=== PATIENT | male | born 1950 | race Caucasian/White ===

== ENCOUNTER 2017-03-28 05:57 | Inpatient (IN) ==
[2017-03-28] MEDS ORDERED: CeFAZolin Syr 2,000MG/20 ML 2,000 MG/20 ML SYRINGE IVPB ONE (06:29)
[2017-03-28] MEDS ORDERED: Lidocaine -MPF 1% 2 ML VIAL ID ONE (06:29)
[2017-03-28] MEDS ORDERED: Vancomycin 1,500 MG in D5% in Water 250 ML IVPB ONE (06:29)
[2017-03-28] MEDS ORDERED: Albuterol 2.5 MG/3 ML NEBULIZER IH ONE (06:30)
[2017-03-28] MEDS ORDERED: Albuterol 2.5 MG/3 ML NEBULIZER ONE (06:32)
[2017-03-28] MEDS ORDERED: Heparin 1,000 UNITS/500 mL 500 ML ONE (06:35)
[2017-03-28] MEDS: Ringers Solution, Lactated 1,000 ML IVC SCH ×2 (06:36→11:40)
--- NOTE | 2017-03-28 06:44 | Anesthesia Evaluation PreOp ---
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: TIA (questionable) Other Medical History: Denies Any Significant HX Anesthesia History: No Prior Anesthetic Complications, Past Anesthesia Alcohol Use: rarely Drug use: none Medications and Allergies Aspirin 81 mg PO QPM 11/11/14 [History] Atorvastatin [Lipitor] 40 mg PO QPM 11/11/14 [History] Cilostazol [Pletal] 100 mg PO BID 11/11/14 [History] Metoprolol [Lopressor] 80 mg PO BID 11/11/14 [History] Nitroglycerin 0.4 mg SL Q5MIN 11/11/14 [History] Sertraline [Zoloft] 50 mg PO QPM 11/11/14 [History] amLODIPine [Norvasc] 10 mg PO DAILY 11/11/14 [History] Clopidogrel [Plavix] 75 mg PO DAILY 06/28/15 [History] Lisinopril [Zestril] 20 mg PO 06/28/15 [History] Gabapentin [Neurontin] 300 mg PO DAILY 03/28/17 [History] 3 Allergy/AdvReac Type Severity Reaction Status Date / Time No Known Allergies Allergy Verified 11/11/14 06:49 - Meds/Allergy Pre-op Review Medications Reviewed: Yes Allergies Reviewed: Yes Beta Blockers on Current Med List: Yes Anesthesia Results - Labs Laboratory Tests 03/14/17 03/14/17 03/14/17 08:16 08:16 08:16 Hgb 16.1 Hct 48.7 Plt Count 226 PT 10.3 INR 1.0 APTT 30.3 Sodium 133 L Potassium 4.6 BUN 20 Creatinine 1.57 H - Imaging EKG: report reviewed (SINUS RHYTHM RIGHT BUNDLE BRANCH BLOCK LEFT ANTERIOR FASCICULAR BLOCK) Additional studies: stress test : Impression: Perfusion imaging was negative for ischemia or infarct. A small sized fixed defect is present involving the inferior and lateral apical parisi consistent with artifact. Pharmacologic ECG was negative for ischemia at the level of heart rate achieved. Patient had no chest pain with stress. Normal hemodynamic response. Occasional PACs throughout the study. Gated EF = 50%. Anesthesia Exam Selected Entries 03/28/17 06:28 Temperature 98.5 F Pulse Rate 86 Respiratory Rate 18 Blood Pressure 123/79 O2 Sat by Pulse Oximetry 96 Weight: 97kg NPO (# of Hours): 8 - HEENT Pupil (Motor): EOMI Mallampati: II Teeth: Edentulous Denture Type: Upper: Complete Oral Opening: Greater than 3 - PORCELAIN ENAMELER LOC: Oriented PORCELAIN ENAMELER Motor: Normal RUE, Normal LUE, Normal RLE, Normal LLE, Normal Face PORCELAIN ENAMELER Sensory: Normal: RUE, LUE, RLE, LLE, Face - Cardiac Rhythm: Regular Murmur: None - Pulmonary Breath Sounds: bilateral Clear Respiratory Effort: Symmetrical Anesthesia Assess/Plan ASA Score: 3 Modified Leticia Scale for Level of Consciousness: Cooperative, oriented, and tranquil Anesthetic Plan: General Monitoring Plan: Standard Monitors, A-Line Recovery Plan: PACU (agrees to GA and a-line)
[2017-03-28] MEDS ORDERED: *HR* FentaNYL (PF) 100 MCG/2 ML VIAL ONE (06:57)
[2017-03-28] MEDS ORDERED: *HR* Propofol 200 MG/20 ML VIAL IVP ONE (06:57)
[2017-03-28] MEDS ORDERED: *HR* Midazolam HCl 2 MG/2 ML VIAL ONE (06:57)
[2017-03-28] MEDS ORDERED: Ondansetron 4 MG/2 ML VIAL ONE ×2 (07:01→14:35)
[2017-03-28] MEDS ORDERED: *HR* Rocuronium Bromide 50 MG/5 ML VIAL ONE (07:01)
[2017-03-28] MEDS ORDERED: Dexamethasone 4 MG/ML VIAL ONE (07:01)
[2017-03-28] MEDS ORDERED: *HR* Phenylephrine 10 MG/ML VIAL ONE ×2 (07:01→12:06)
[2017-03-28] MEDS ORDERED: Lidocaine -MPF 2% 2 ML VIAL ONE (07:01)
[2017-03-28] MEDS ORDERED: *HR* Succinylcholine 200 MG/10 ML VIAL IVP ONE (07:01)
[2017-03-28] MEDS ORDERED: EPHEDrine 50 MG/ML VIAL ONE (07:12)
[2017-03-28] MEDS ORDERED: Heparin 1,000 UNITS/500 mL 1,000 ML ONE (07:13)
[2017-03-28] MEDS ORDERED: *HR* Remifentanil 2 MG VIAL IVP ONE ×2 (07:16→10:45)
--- NOTE | 2017-03-28 07:35 | History & Physical Report ---
Date of Encounter: 03/28/17 Time of Encounter: 07:28 24 Hour HP Update - Instructions Instructions: If the History and Physical is less than 30 days old and was completed prior to A.M. admission and or procedure and has NOT been updated on calendar day of procedure please complete this update prior to performing procedure. - Update Patient reports changes in Medical Condition: No Changes in examination, assessment, or condition: No Changes in Medication: No Preop tests/diagnostics Reviewed: Yes Surgery Remains Indicated: Yes Consent for Planned Operative Procedure(s) Verified: Yes - Pre-Operative Checklist Preoperative Checklist Indicated: Yes Prophylactic Antibiotic Ordered: Yes (vancomycin due to MRSA risk) Home Medications Include Beta Kassi: Yes Beta Kassi Taken Today (Day of Surgery): Yes Beta Kassi Taken Yesterday (Day Prior to Surgery): Yes Is VTE Prophylaxis Indicated?: Yes
[2017-03-28] MEDS ORDERED: Vancomycin 1,000 MG, Sodium Chloride IRRigation 1,000 ML IR ONE (07:45)
[2017-03-28] MEDS ORDERED: Nitroglycerin 25 MG/250 ML INFUS..BTL IVC ONE (07:57)
[2017-03-28] MEDS: 0.9 % Sodium Chloride 1,000 ML IVC SCH ×5 (09:00→22:41)
[2017-03-28] MEDS ORDERED: Vancomycin 1,000 MG VIAL ONE ×2 (09:49→13:12)
[2017-03-28] MEDS ORDERED: *HR* Labetalol 20 MG/4 ML SYRINGE IVP PRN ×2 (10:51→16:19)
[2017-03-28] MEDS ORDERED: *HR* HYDROmorphone (PF) 1 MG/ML SYRINGE IVP PRN (10:51)
[2017-03-28] MEDS ORDERED: Dexamethasone 4 MG/ML VIAL IVP ONE (10:51)
[2017-03-28] MEDS ORDERED: *HR* Promethazine 25 MG/ML VIAL IVP PRN (10:51)
[2017-03-28] MEDS ORDERED: *HR* Vasopressin 20 UNIT/ML VIAL ONE (11:12)
[2017-03-28] MEDS ORDERED: *HR* Heparin 5,000 UNIT/ML VIAL ONE (11:39)
[2017-03-28] MEDS ORDERED: *HR* HYDROmorphone 2 MG/ML SYRINGE ONE (13:04)
[2017-03-28] MEDS ORDERED: Acetaminophen IV 1,000 MG/100 ML INFUS..BTL ONE (13:21)
[2017-03-28] MEDS ORDERED: Neostigmine Methylsulfate 3 MG/3 ML SYRINGE ONE (13:26)
--- NOTE | 2017-03-28 14:02 | Operative Note ---
Date of procedure: 03/28/17 Pre-op diagnosis: Peripheral vascular disease with rest pain Post-op diagnosis: same Procedure: 1. Aortobifemoral artery bypass with 16 x 8 mm Hemashield graft. 2. Left common and deep femoral artery endarterectomy Complications: None Anesthesia: GETA Surgeon: Maximino Campoverde Was there an administrative assistant front desk present: Yes Freight Car Repairer: Levon Chavez Estimated blood loss (cc): 725 Specimen: Aortic plaque Condition: stable Disposition: PACU Procedure in Detail: Indications: The patient is a 66 year old male with a history of coronary artery disease, hypertenions, chronic kidney disease stage 3, mixed hyperlipidemia and tobacco abuse. He presented to clinic with peripheral vascular disease with disabling claudication. The patient has previously undergone iliac stent placement, a left femoral to popliteal artery bypass and a femoral to femoral artery bypass. He was found on CT angiogram to have bilateral iliac artery occlusions and occlusion of his femoral to femoral artery bypass. Aortobifemoral artery bypass was recommended for symptomatic relief and to reduce his risk of limb loss. Procedure: The patient was identified in the preoperative area. The risks, benefits, and alternatives of the procedure were discussed. All questions were answered. The patient was taken to the operating room and placed in supine position on the operating room table. After the induction of general endotracheal anesthesia, he was cleaned and draped in normal sterile fashion. A two surgeon approach was utilized for this procedure in order to minimize anesthetic time and the risks for complications due to the patients comorbid conditions. In addition, a two surgeon approach was used for intraoperative decision making. An oblique incision was made over the right groin scar sharply. Hemostasis was obtained with electrocautery. Through a process of blunt, sharp, and electrocautery dissection, the right femoral vessels were dissected circumferentially and surrounded with vessel loops. The right limb of his femoral to femoral artery bypass graft was also dissected. An oblique incision was then made over the left groin scar sharply. Hemostasis was obtained with electrocautery. Through a process of blunt, sharp, and electrocautery dissection, the left femoral vessels were dissected circumferentially and surrounded with vessel loops. The left limb of his femoral to femoral bypass graft and the proximal anastamosis of his left femoral to popliteal arty bypass graft also dissected circumferentially. A midline incision was made sharply. Hemaostasis was obtained via electrocautery. Through a process of blunt, sharp and electrocautery dissection , the subcutaneous tissue, fascia and peritoneum were traversed. A brief exploration of the peritoneum revealed no acute pathology. Nasogastric tube placement was confirmed. The aorta was palpated in the retroperitoneum. The retroperitoneum was opened with blunt, sharp and electrocautery dissection. The aorta was dissected along it's anterior, medial and lateral surfaces to below the renal arteries. The dissection was extended down to the aortic bifurcation. A clamp was used to tunnel through the retroperitoneum to each femoral vessel. The patient received 5000 units of intravenous heparin and additional heparin throughout the case to maintain anticoagulation. A 16 x 8mm dacron bifurcated graft was cut to appropriate length. The infrarenal aorta was clamped proximally and distally. A longitudinal incision was made into the aorta between the clamps. Significant plaque and thrombus was removed. The aorta was flushed by releasing the clamp and a large organized thrombus emerged. The aorta was clamped again and infused with heparinized saline. The graft was cut to fit the defect and sutured in place with a running 3-0 prolene. After completing the anastamosis, the graft limbs were clamped and the aorta was reopened. Thrombin and gelfoam were used to aid in hemostasis. The graft limbs were tunneled to the femoral vessels. The bilateral femoral vessels were occluded and longitudinal arteriotomies were made in the common femoral arteries. The femoral to femoral graft anastamoses were excised from the femoral arteries. On the left side, severe atherosclerotic plaque and chronic thrombus was present in the common and deep femoral artery. An endarterectomy was then performed with a freer along the left common and deep femoral artery. Retrograde deep femoral artery flow was noted after the endarterectomy was completed. The bilateral graft limbs were then cut to fit the arteriotomies and sutured in place with a running 6-0 Prolene. Prior to completing the anastamoses, the femoral vessels were flushed through the graft anastamoses and heparin was infused into the lumen. The anastamoses were completed and flow was restored in the right lower extremity. After assuring appropriate hemodynamics flow was restored to the left lower extremity. Thrombin and gelfoam were used to aid in hemostasis. Polyphasic signals were noted distal to the anastamoses. The wounds were irrigated with antibiotic-containing saline. Platelet rich and platelet poor plasma were infused into the wounds. Meticulous hemostasis was obtained throughout the wounds with electrocautery. The femoral wounds were reapproximated with layers of 2-0 and 3-0 Vicryl. Skin was reapproximated with 3-0 Monocryl. The abomen and pelvis were irrigated with antibiotic containing saline. Meticulous hemostasis was obtained throughout the retroperitoneum with electrocautery. The retroperitoneum was reapproximated with 2-0 Vicryl. The abdominal contents were returned to their normal anatomic position The nasogastric tube was checked for position. The midline fascia was reapproximated with looped PDS suture. The subcutaneous tissue was reapproximated with 2-0 Vicryl. Platelet rich and platelet poor plasma were infused into the wound. Skin was reapproximated with 3-0 Monocryl. Sterile dressings were applied. The patient was extubated and taken to recovery room in stable condition.
[2017-03-28 14:30] LABS: ABG Base Excess -10 mEq/L (-2 to 3); ABG Chloride 110 mEq/L (98-107); ABG Glucose 207 mg/dL (60-95); ABG HCO3 17 mEq/L (21-27); ABG Ionized Calcium 1.23 mmol/L (1.15-1.35); ABG Oxygen Saturation 88 % (95-98); ABG PCO2 45 mmHg (35-45); ABG PO2 66 mmHg (85-104); ABG TCO2 19 mEq/L (20-26)
[2017-03-28 14:50] LABS: ABG Base Excess -7 mEq/L (-2 to 3); ABG Chloride 110 mEq/L (98-107); ABG Glucose 199 mg/dL (60-95); ABG HCO3 20 mEq/L (21-27); ABG Ionized Calcium 1.53 mmol/L (1.15-1.35); ABG Oxygen Saturation 88 % (95-98); ABG PCO2 46 mmHg (35-45); ABG PH 7.25 pH Units (7.32-7.45); ABG PO2 63 mmHg (85-104); ABG TCO2 22 mEq/L (20-26)
[2017-03-28 15:15] LABS: ABG Base Excess -4 mEq/L (-2 to 3); ABG Chloride 108 mEq/L (98-107); ABG Glucose 215 mg/dL (60-95); ABG HCO3 22 mEq/L (21-27); ABG Ionized Calcium 1.39 mmol/L (1.15-1.35); ABG Oxygen Saturation 88 % (95-98); ABG PCO2 44 mmHg (35-45); ABG PH 7.31 pH Units (7.32-7.45); ABG PO2 60 mmHg (85-104); ABG TCO2 23 mEq/L (20-26)
--- NOTE | 2017-03-28 15:27 | Operative Note ---
Date of procedure: 03/28/17 Pre-op diagnosis: Claudication Post-op diagnosis: same Procedure: Aortobifemoral bypass graft with 16 x 8 mm hemasheild graft Left common femoral artery endarterectomy Complications: None Anesthesia: GETA Surgeon: Maximino Campoverde Co-Surgeon: Levon Chavez Was there an assistant professor of communication present: No Estimated blood loss (cc): 725 Specimen: Aortic plaque Condition: stable Disposition: PACU Procedure in Detail: History Mr. Guan is a 66-year-old white male with known vascular disease. He has significant bilateral iliac artery disease which has been progressive. He is status post a previous right to left femoral-femoral bypass graft which has gone on to thrombose. He does have a left femoral-popliteal bypass graft with vein which has remained open. He has significant claudication. Because of his diffuse inflow disease it was recommended to the patient he undergo a direct aortic reconstruction and he comes for that operation today. Procedure After informed consent was obtained the patient was taken to the operating room. General endotracheal anesthesia was established with arterial line pressure monitoring. A 2 surgeon approach was utilized for this procedure due to the patient's comorbidities. This also would facilitate intraoperative complex decision-making as well as minimize operative time and decrease blood loss. The femoral arteries were dissected first simultaneously. The old femoral- femoral bypass graft was encountered and was divided. Significant scar tissue was encountered bilaterally. The vein graft was identified in the left groin and was selectively dissected and preserved. A longitudinal midline incision was then made on the abdomen in order to explore the abdomen and expose the aorta. Dissection was carried down to the retroperitoneum. The infrarenal aorta was identified. The crossing left renal vein was identified at the superior aspect of the exposure. Controls obtained. Tunnels were then made through the retroperitoneum. 5000 units of heparin were Mr. intravenously. After 3 minute delay the aorta was clamped and the infrarenal location. A longitudinal incision was then made in the aorta was endarterectomized. The plaque was submitted for specimen. An end of graft to side of aorta anastomosis was then configured using a 16 x 8 mm Hemashield graft. 3-0 Prolene was used for the proximal anastomosis. The graft limbs were then tunneled and checked for their appropriate position. Arteriotomies were then made over the femoral arteries in end of graft to side of femoral artery anastomosis was created. However, on the left side significant inflammatory and scar tissue was encountered. There is chronic thrombus as well as atherosclerotic debris. Therefore a formal endarterectomy was necessary in order to open this area to accommodate a bypass graft. Chronic thrombus was found at the orifice of the profunda femoris artery. The arteriotomy was extended out onto the proximal aspect of the vein graft. A long anastomosis was then made on the left side in order to accommodate these anatomic changes. After appropriate backbleeding and flushing the graft was opened. First to the right leg and then to the left leg. The patient tolerated these procedures well. The wounds were then irrigated and hemostasis achieved. Wounds were then closed in layers. The groin incisions were closed with absorbable suture. The abdomen was closed with a with 2 looped PDS sutures. There were no intraoperative complications. The patient tolerated the procedure well. The patient was taken from the operating room to the recovery room in stable condition.
--- NOTE | 2017-03-28 15:28 | Anesthesia Evaluation Post Op ---
Date of Encounter: 03/28/17 Time of Encounter: 15:21 - Vital Signs Vital Signs: Selected Entries 03/28/17 15:02 Temperature 97.4 F L Pulse Rate 98 Respiratory Rate 15 Blood Pressure 111/63 O2 Sat by Pulse Oximetry 92 Oxygen Flow Rate (LPM) 4 - Lungs Lungs: Clear Ascult./Percussion - Airway Airway: Non-obstructed - Cardiovascular Regular Rate - Mental Status Mental Status: Alert & Oriented, Answers Appropriately - Pain Pain Scale: 0 Pain Scale used: Numeric (1 - 10) - Nausea Vomiting Nausea Vomiting: Not Present - Hydration Hydration: Ice chips, Rosa catheter Notes: 03/28/17 15:23 patient had hypotension issues upon entry to PACU. ABGs checked and patient was acidotic and slightly hypocalcemic. Treated with 2 amps bicarbonate and 1 gram CaCl2. Pressures responded well to treatment. - Discharge PostOp Status: Transfer Patient to floor
[2017-03-28] MEDS ORDERED: Naloxone 0.4 MG/ML INJ IVP PRN ×2 (16:19)
[2017-03-28 16:45] LABS: INR 1.1; Prothrombin Time 12.2 Seconds (9.4-12.1)
[2017-03-28 16:48] LABS: Activated Partial Thrombo Time 25.9 Seconds (26.0-36.0)
[2017-03-28 16:52] LABS: Albumin 2.4 g/dL (3.5-5.7); Calcium 8.1 mg/dL (8.6-10.3); Magnesium 1.5 mg/dL (1.6-2.6); Phosphorous 3.8 mg/dL (2.7-4.5); Potassium 4.8 mEq/L (3.5-5.1)
[2017-03-28 16:53] LABS: Basophils % 0.2 %; Eosinophils % 0.1 %; Hematocrit 36.4 % (37.5-50.1); Hemoglobin 12.1 g/dL (12.9-16.9); Immature Granulocytes % 0.6 % (0-4); Lymphocytes # 0.8 K/mcL (0.6-4.6); Lymphocytes % 4.2 %; Mean Corpuscular HGB Conc 33.2 g/dL (31.6-35.5); Mean Corpuscular Hemoglobin 31.5 pg (28.0-33.3); Mean Corpuscular Volume 94.8 fL (83.0-100.0); Mean Platelet Volume 9.8 fL (9.4-12.4); Monocytes % 5.6 %; Nucleated Red Blood Cells 0.1 /100 WBC (0); Platelet Count 153 K/mcL (140-400); Red Blood Count 3.84 M/mcL (4.19-5.50); Red Cell Distribution Width 13.4 % (11.5-14.5); Segmented Neutrophils % 89.3 %
[2017-03-28] MEDS ORDERED: Calcium Chloride 1,000 MG in 0.9 % Sodium Chloride 100 ML IVPB ONE (17:08)
--- NOTE | 2017-03-28 17:51 | Event Note ---
Date of Encounter: 03/28/17 Time of Encounter: 17:30 The patient was seen and examined. He is alert and comfortable. His vital signs are stable. His abdomen is soft and he has pedal signals. He initially made no urine after arriving on the floor. He received a 500ml NS bolus and has now made 15ml urine. He will remain on intravenous hydration with NS at 125ml/hr. His calcium and magnesium will be repleted intravenously. He will have repeat labs in the morning. Continue with NPO status.
[2017-03-28] MEDS: *HR* Metoprolol 5 MG/5 ML VIAL IVP SCH ×2 (18:00→18:05)
[2017-03-28] MEDS: Nitroglycerin 0.4 MG TAB.SUBL SL SCH (18:00)
[2017-03-28] MEDS: CeFAZolin Premix DUPLEX 2,000 MG/50 ML BAG IVPB SCH (18:01)
[2017-03-28] MEDS: *HR* Morphine 30 MG/ 30 ML PCA IVC PRN (18:50)
[2017-03-29] MEDS: CeFAZolin Premix DUPLEX 2,000 MG/50 ML BAG IVPB SCH (00:14)
[2017-03-29] MEDS: *HR* Metoprolol 5 MG/5 ML VIAL IVP SCH ×5 (00:15→23:26)
[2017-03-29 03:52] LABS: Prothrombin Time 10.8 Seconds (9.4-12.1)
[2017-03-29 04:12] LABS: Albumin 2.7 g/dL (3.5-5.7); Calcium 8.7 mg/dL (8.6-10.3); Magnesium 2.1 mg/dL (1.6-2.6); Phosphorous 3.5 mg/dL (2.7-4.5); Potassium 5.2 mEq/L (3.5-5.1)
[2017-03-29] MEDS: *HR* Heparin 5,000 UNIT/ML VIAL SQ SCH ×2 (05:36→17:44)
[2017-03-29] MEDS: 0.9 % Sodium Chloride 1,000 ML IVC SCH ×3 (05:37→23:26)
[2017-03-29] MEDS ORDERED: *HR* Heparin 5,000 UNIT/ML VIAL SQ SCH (06:00)
--- NOTE | 2017-03-29 07:45 | Vascular/[facility] Progress Note ---
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 His feet are warm and pedal signals are present. His compartments are soft. He incisions are dry. He has no hematoma. He will continue will remain NPO today. He will have repeat labs tomorrow. 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 PT today. Qualifiers: Peripheral atherosclerosis artery type: [place] artery Qualified Code(s): I70.223 - Atherosclerosis of [place] arteries of extremities with rest pain, bilateral legs (2) Essential hypertension Current Visit: Yes Status: Chronic (3) Mixed hyperlipidemia Current Visit: Yes Status: Chronic (4) CAD in [place] artery Current Visit: Yes Status: Chronic (5) Acute blood loss anemia Current Visit: Yes Status: Acute The patient has acute expected postoperative blood loss anemia. He is hemodynamically stable without evidence of ongoing blood loss. (6) CKD (chronic kidney disease), stage III Current Visit: Yes Status: Chronic The patient has chronic kidney disease stage III. He continues to make urine. Will continue with intravenous fluids. Recheck labs in am. Leave lang catheter in place to monitor urine output. (7) Tobacco abuse Current Visit: Yes Status: Acute Will start nicotine patch. Smoking cessation discussed. (8) Moderate protein malnutrition Current Visit: Yes Status: Chronic - Subjective Interval history: The patient is comfortable today. He reports adequate pain control. He denies nausea. He denies chest pain or shortness of breath. Vital Signs, Last 4 Hours Temp Pulse Resp BP Pulse Ox 03/29/17 07:19 98.0 F 96 18 129/71 93 03/29/17 05:08 98.1 F 101 17 108/59 94 03/29/17 03:43 105 - Physical Examination General: Present: Conversant, No Apparent Distress HEENT: Present: Pupils equal Neck: Absent: JVD Cardiac: Present: Reg Rate and Rhythm Lungs: Present: Normal Breath Sounds, No Wheeze, Rales, Rhonchi Neuro: Present: Alert and responsive, No focal deficits noted, Motor nerves grossly intact, Sensory nerves grossly intact Vascular: Present: Normal capillary refill, Surgical incisions (no hematoma), Other (pedal signals present bilaterally). Absent: Cyanosis, Edema Abdomen: Present: Soft, Other (mild distension, no bowel sounds, bandages dry) - VTE Documentation of Mechanical Device: Intermittent pneumatic compression device Results 03/29/17 08:35 03/29/17 03:23 Lab Results, Last 24 hours 03/28/17 03/28/17 03/28/17 16:30 16:30 16:30 WBC 17.9 H Hgb 12.1 L Hct 36.4 L Plt Count 153 INR 1.1 APTT 25.9 L Sodium 136 Potassium 4.8 Chloride 113 H Carbon Dioxide 21 L BUN 24 H Creatinine 1.77 H Glucose 207 H Calcium 8.1 L Magnesium 1.5 L 03/29/17 03/29/17 03:23 03:23 WBC Hgb Hct Plt Count INR 1.0 APTT Sodium 137 Potassium 5.2 H Chloride 114 H Carbon Dioxide 19 L BUN 27 H Creatinine 1.80 H Glucose 169 H Calcium 8.7 Magnesium 2.1 Consult Discharge Plan - Plan Referrals: Kal Lugo MD [Primary Care Provider] - 04/01/17 9:45 am Maximino Campoverde MD [Partnered Physician] - 05/07/17 1:00 pm
[2017-03-29 09:11] LABS: Basophils % 0.1 %; Hematocrit 35.6 % (37.5-50.1); Hemoglobin 11.8 g/dL (12.9-16.9); Immature Granulocytes % 0.3 % (0-4); Lymphocytes # 1.3 K/mcL (0.6-4.6); Lymphocytes % 11.6 %; Mean Corpuscular HGB Conc 33.1 g/dL (31.6-35.5); Mean Corpuscular Hemoglobin 31.5 pg (28.0-33.3); Mean Corpuscular Volume 94.9 fL (83.0-100.0); Mean Platelet Volume 9.9 fL (9.4-12.4); Monocytes # 0.9 K/mcL (0.0-1.3); Monocytes % 8.4 %; Neutrophils # 8.8 K/mcL (1.6-8.9); Platelet Count 119 K/mcL (140-400); Red Blood Count 3.75 M/mcL (4.19-5.50); Red Cell Distribution Width 13.7 % (11.5-14.5); Segmented Neutrophils % 79.6 %
[2017-03-29] MEDS: Ondansetron 4 MG/2 ML VIAL IVP PRN (09:27)
--- NOTE | 2017-03-29 10:21 | Discharge Summary ---
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 Priority: Primary Status: Chronic Qualifiers: Peripheral atherosclerosis artery type: [place] artery Qualified Code(s): I70.223 - Atherosclerosis of [place] arteries of extremities with rest pain, bilateral legs (4) Acute blood loss anemia Priority: Secondary Status: Acute (5) CHF (congestive heart failure) Priority: Secondary Status: Chronic Qualifiers: Congestive heart failure type: systolic Congestive heart failure chronicity : chronic Qualified Code(s): I50.22 - Chronic systolic (congestive) heart failure - Discharge Medications Prescriptions: OxyCODONE/APAP 5/325 [Percocet 5/325 MG] 1 each PO Q6HR PRN #25 tablet PRN Reason: postoperative pain Adhesive Tape [Paper Tape] 1 each TP AD #1 tape Amoxicillin/Clavulanate [Augmentin] 875 mg PO BID #10 tablet Fluconazole [Diflucan] 200 mg PO DAILY #5 tablet Polyquaternium-6/Gauze Bandage [Bioguard Gauze 4"X4" Sponge] 1 each TP AD #60 bandage Home Medications: Aspirin 81 mg PO QPM 11/11/14 [History] Atorvastatin [Lipitor] 80 mg PO QPM 11/11/14 [History] Cilostazol [Pletal] 100 mg PO BID 11/11/14 [History] Metoprolol [Lopressor] 80 mg PO BID 11/11/14 [History] Nitroglycerin 0.4 mg SL Q5MIN 11/11/14 [History] Sertraline [Zoloft] 50 mg PO QPM 11/11/14 [History] amLODIPine [Norvasc] 10 mg PO DAILY 11/11/14 [History] Clopidogrel [Plavix] 75 mg PO DAILY 06/28/15 [History] Lisinopril [Zestril] 20 mg PO DAILY 06/28/15 [History] Gabapentin [Neurontin] 300 mg PO DAILY 03/28/17 [History] OxyCODONE/APAP 5/325 [Percocet 5/325 MG] 1 each PO Q6HR PRN #25 tablet 03/29/17 [Rx] Adhesive Tape [Paper Tape] 1 each TP AD #1 tape 04/09/17 [Rx] Polyquaternium-6/Gauze Bandage [Bioguard Gauze 4"X4" Sponge] 1 each TP AD #60 bandage 04/09/17 [Rx] Amoxicillin/Clavulanate [Augmentin] 875 mg PO BID #10 tablet 04/13/17 [Rx] Fluconazole [Diflucan] 200 mg PO DAILY #5 tablet 04/13/17 [Rx] Allergies/Adverse Reactions: 3 Allergy/AdvReac Type Severity Reaction Status Date / Time No Known Allergies Allergy Verified 03/28/17 06:48 Date of admission: 03/28/17 17:12 Primary care physician: Kal Lugo MD Consults: 03/28/17 16:19 Consult to Physical Therapy [CONS] Routine Comment: Evaluate, develop and implement POC Reason for Consult: Postoperative aortobifemoral bypass. Anticipated date of discharge: 04/01/17 - Patient Status Disposition: Home, Self-Care Condition: Good Functional capacity at discharge: independent ambulation Overall status at discharge: patient is progressing back to baseline - Discharge Instructions Instructions: Oxycodone/Acetaminophen (By mouth), Aortofemoral Bypass (DC) Follow Up With: Kal Lugo MD [Primary Care Provider] - 04/26/17 1:15 pm Sy Bryan MD [Partnered Physician] - 05/06/17 3:35 pm Maximino Hutchins MD [Partnered Physician] - 05/07/17 1:00 pm Additional Instructions: Cholecystostomy Tube Care: 1. do not let the drain dangle from your body. Suspend on a lanyard or secured to clothing with the safety pin. 2. Remove dressing and showers/wash with antibacterial soap daily. Pat dry. 3. Place a drain sponge or split 4 x 4 gauze around the drain site. Tape to secure. 4. Do not flush the drain towards the body. If the drain needs flushed, turn the stopcock to off to the patient and you may flushed the tube with 10 mL of normal saline. 5. Record the output from the drain at least once daily. BRING this drainage recording to your follow-up appointment. NO LIFTING GREATER THAN 10 POUNDS UNTIL 04/29/17. NO LIFTING GREATER THAN 20 POUNDS UNTIL 05/27/17. CALL DR. HUTCHINS AT [phone] WITH QUESTIONS OR CONCERNS. - Diet and Activity Activity: increase activity as tolerated Diet: advance to your usual diet - Hospital Course Hospital course: Mr. Guan is a 66 year old male With known significant vascular occlusive disease. He is status post previous femoral-femoral bypass graft and left femoral popliteal bypass graft. He presents with further symptoms to the outpatient clinic. CT Angiograham demonstrated significant iliac occlusive disease and was recommended that the patient undergo a formal inflow procedure due to his stable physical condition. The patient was then taken to the operating room on March 28. He underwent an aortobifemoral bypass graft. He was able to be extubated at the conclusion of the operation. He was then transported to the recovery room and from there to [address] [place] [address]. Postoperatively he had experienced hypoxemia. He required significant supplemental oxygen therapy and temporarily a BiPAP mask on March 30. He responded appropriately to diuresis. He was able to be placed back on his usual medications on the afternoon of March 31. He was then able to ambulate and be weaned off of his oxygen. He was felt fit for discharge on the afternoon of April 01. Instructions were given to the patient in regards to his activities and medications prior to discharge. He will follow up with his primary care physician and with Dr. Hutchins. - Time Spent with Patient Total time spent providing and/or coordinating discharge services: Exam Vital Signs, Last 4 Hours Temp Pulse Resp BP Pulse Ox 04/01/17 16:33 97.7 F 104 18 118/72 90 04/01/17 16:11 18 100 General: Present: Conversant, No Apparent Distress HEENT: Present: Atraumatic Neck: Absent: JVD Cardiac: Present: Reg Rate and Rhythm Lungs: Present: Decreased breath sounds Neuro: Present: Alert and responsive, No focal deficits noted Abdomen: Present: Soft, Non-tender Vascular: Present: Color/Temperature (His feet are warm and pink.), Surgical incisions (Surgical incisions are clean and dry and healing appropriately.), Other (The patient has Doppler signals at his feet and ankle bilaterally.) Skin: Present: No rashes noted on visualized skin <Maximino Hutchins - Last Filed: 04/16/17 07:09> Date of Encounter: 04/13/17 Time of Encounter: 11:15 - Discharge Diagnosis (1) Atherosclerosis of both lower extremities with rest pain Priority: Primary Status: Chronic Comments: The patient is postoperative day #16 after his aortobifemoral artery bypass. His wounds are healing. He is tolerating a diet and he has polyphasic signals in his feet. He will be discharged today. Qualifiers: Peripheral atherosclerosis artery type: [place] artery Qualified Code(s): I70.223 - Atherosclerosis of [place] arteries of extremities with rest pain, bilateral legs (2) Essential hypertension Priority: Secondary Status: Chronic (3) Mixed hyperlipidemia Priority: Secondary Status: Chronic (4) CAD in [place] artery Priority: Secondary Status: Chronic (5) Acute blood loss anemia Priority: Secondary Status: Acute (6) CKD (chronic kidney disease), stage III Priority: Secondary Status: Chronic (7) Tobacco abuse Priority: Secondary Status: Chronic (8) Moderate protein malnutrition Priority: Secondary Status: Chronic (9) Acute cholecystitis Priority: Secondary Status: Acute Comments: The patient developed acute choecystitis. He required a cholecystostomy tube. He was on intravenous antibiotics and will continue his oral antibiotics. He will follow-up with Dr. Bryan for further evaluation and interval cholecystectomy. Date of admission: 03/28/17 17:12 Primary care physician: Kal Lugo MD Consults: 03/28/17 16:19 Consult to Physical Therapy [CONS] Routine Comment: Evaluate, develop and implement POC Reason for Consult: Postoperative aortobifemoral bypass. Procedure(s) Performed: Aortobifemoral artery bypass graft Discharging clinician: Maximino Hutchins - Patient Status Functional capacity at discharge: independent ambulation Overall status at discharge: patient is progressing back to baseline - Diet and Activity Activity: increase activity as tolerated Diet: advance to your usual diet - Hospital Course Hospital course: Mr. Guan is a 66 year old male who was admitted on 03/28/17. He underwent an aortobifemoral artery bypass. He was scheduled for discharge on 04/01/17. At that time, he was was thought to have atrial fibrillation. His discharge was canceled. Cardiology was consulted and atrial fibrillation was ruled out. The patient had no evidence of an acute coronary event. The patient subsequently became febrile. The Hosptialist service was consulted. Pneumonia, sepsis and a urinary tract infection were ruled out. The patient was found to have acute cholecystitis. General surgery was consulted. The patient was treated with antibiotics and antifungals. The patient also had a cholecystostomy tube placed. He defervesced and his white blood cell count decreased. He was transitioned to oral antibiotics. He tolerated a diet well. He remained afebrile and was discharged on 04/13/17. Time spent discussing smoking cessation with patient: 3 to 10 minutes - Time Spent with Patient Total time spent providing and/or coordinating discharge services: Exam Vital Signs, Last 4 Hours Temp Pulse Resp BP Pulse Ox 03/29/17 07:19 98.0 F 96 18 129/71 93 General: Present: Conversant, No Apparent Distress HEENT: Present: Atraumatic Cardiac: Present: Reg Rate and Rhythm Lungs: Present: Normal Breath Sounds Neuro: Present: Alert and responsive, No focal deficits noted Abdomen: Present: Soft, Non-tender Vascular: Present: Surgical incisions (incision is healing well.) Skin: Present: No rashes noted on visualized skin - VTE Documentation of Mechanical Device: Intermittent pneumatic compression device
[2017-03-29] MEDS: *HR* Morphine 30 MG/ 30 ML PCA IVC PRN ×2 (12:39→23:48)
[2017-03-29] MEDS: Nicotine 21 MG PATCH.TD24 TD SCH (12:41)
[2017-03-29] MEDS: Nitroglycerin 0.4 MG TAB.SUBL SL SCH (17:38)
[2017-03-29] MEDS: Aspirin 81 MG TAB.CHEW PO SCH (17:44)
[2017-03-30] MEDS ORDERED: Albuterol 2.5 MG/3 ML NEBULIZER IH ONE (03:05)
[2017-03-30 03:51] LABS: ABG Base Excess -5 mEq/L (-2 to 3); ABG HCO3 21 mEq/L (21-27); ABG Oxygen Saturation 90 % (95-98); ABG PCO2 38 mmHg (35-45); ABG PH 7.34 pH Units (7.32-7.45); ABG PO2 63 mmHg (85-104); ABG TCO2 22 mEq/L (20-26)
[2017-03-30 03:51] LABS: Basophils % 0.1 %; Hematocrit 33.9 % (37.5-50.1); Hemoglobin 10.9 g/dL (12.9-16.9); Immature Granulocytes % 0.4 % (0-4); Lymphocytes # 1.2 K/mcL (0.6-4.6); Lymphocytes % 8.6 %; Mean Corpuscular HGB Conc 32.2 g/dL (31.6-35.5); Mean Corpuscular Hemoglobin 31.2 pg (28.0-33.3); Mean Corpuscular Volume 97.1 fL (83.0-100.0); Mean Platelet Volume 10.1 fL (9.4-12.4); Monocytes % 7.6 %; Neutrophils # 11.2 K/mcL (1.6-8.9); Platelet Count 113 K/mcL (140-400); Red Blood Count 3.49 M/mcL (4.19-5.50); Red Cell Distribution Width 14.1 % (11.5-14.5); Segmented Neutrophils % 83.3 %
[2017-03-30 03:53] LABS: Prothrombin Time 10.6 Seconds (9.4-12.1)
[2017-03-30 04:11] LABS: Albumin 2.9 g/dL (3.5-5.7); Calcium 8.9 mg/dL (8.6-10.3); Magnesium 2.2 mg/dL (1.6-2.6); Phosphorous 2.9 mg/dL (2.7-4.5)
[2017-03-30] MEDS: *HR* Metoprolol 5 MG/5 ML VIAL IVP SCH ×3 (06:03→18:17)
[2017-03-30] MEDS: *HR* Heparin 5,000 UNIT/ML VIAL SQ SCH ×2 (06:03→18:20)
[2017-03-30] MEDS: 0.9 % Sodium Chloride 1,000 ML IVC SCH (08:17)
[2017-03-30] MEDS: Nicotine 21 MG PATCH.TD24 TD SCH (08:18)
[2017-03-30] MEDS ORDERED: Furosemide 40 MG/4 ML VIAL IVP ONE (09:09)
--- NOTE | 2017-03-30 09:16 | Vascular/[facility] Progress Note ---
Date of Encounter: 03/30/17 Time of Encounter: 09:14 - Assessment and plan (1) CKD (chronic kidney disease), stage III Current Visit: Yes Status: Chronic The patient's serum creatinine is relatively stable. However because of his elevated I will defer using nonsteroidal anti-inflammatory medications for pain control and will need to continue morphine for at least another 24 hours. This was given however on an intermittent basis rather than through a [employer] device. (2) Tobacco abuse Current Visit: Yes Status: Chronic The patient's history of tobacco abuse contributes to his postoperative hypoxemia. I believe however has significant interstitial edema due to fluid and so therefore we'll eliminate all intravenous fluids and provide IV Lasix at this time. (3) Atherosclerosis of both lower extremities with rest pain Current Visit: Yes Status: Chronic Patient's aortobifemoral bypass graft appears to be patent. Perfusion is better on the left side versus the right. The patient does have a left femoral- popliteal bypass graft in position. There is no bypass graft of the lower extremity on the right side. Qualifiers: Peripheral atherosclerosis artery type: [place] artery Qualified Code(s): I70.223 - Atherosclerosis of [place] arteries of extremities with rest pain, bilateral legs - Subjective Interval history: Mr. Skelton is a 66-year-old white male who is status post aortobifemoral bypass graft on . Early this morning at approximately 2:30 was notified by the nursing staff that the patient had significant hypoxemia. He required to 15 L by nonrebreather. His O2 saturation is remained in the high 80s low 90% range. Patient does not complain of shortness of breath. He has no fevers. He has abdominal pain related to his incision made worse with coughing but otherwise is comfortable. The patient does not use oxygen at home. At this point the patient has had no return of bowel activity. Vital Signs, Last 4 Hours Temp Pulse Resp BP Pulse Ox 03/30/17 07:50 99.5 F 114 22 136/72 89 - Physical Examination General: Present: Conversant, No Apparent Distress HEENT: Present: Atraumatic Neck: Absent: JVD Cardiac: Present: Other (Sinus tachycardia in the 110-120 range. This is been persistent over more than 24 hours.) Lungs: Present: Other (Patient has coarse breath sounds bilaterally with a wet characteristic. There are no wheezes.) Neuro: Present: Alert and responsive, No focal deficits noted, Motor nerves grossly intact, Sensory nerves grossly intact Vascular: Present: Color/Temperature (The left foot is warm and pink. It has strong biphasic to triphasic Doppler signals. The right foot is cool and pale. The patient does have a biphasic posterior tibial signal.) Abdomen: Present: Soft, Other (Patient has hypoactive bowel sounds. Surgical dressings remain intact.) - VTE Documentation of Mechanical Device: Intermittent pneumatic compression device Results 03/30/17 03:03 03/30/17 03:03 Lab Results, Last 24 hours 03/30/17 03/30/17 03/30/17 03:03 03:03 03:03 WBC 13.5 H Hgb 10.9 L Hct 33.9 L Plt Count 113 L INR 1.0 Sodium 139 Potassium 5.0 Chloride 114 H Carbon Dioxide 23 BUN 34 H Creatinine 1.81 H Glucose 111 H Calcium 8.9 Magnesium 2.2 - Imaging / Other Tests Chest Xray: report reviewed, image reviewed Consult Discharge Plan - Plan Referrals: Kal Lugo MD [Primary Care Provider] - 04/01/17 9:45 am Maximino Campoverde MD [Partnered Physician] - 05/07/17 1:00 pm Prescriptions: OxyCODONE/APAP 5/325 [Percocet 5/325 MG] 1 each PO Q6HR PRN #25 tablet PRN Reason: postoperative pain
[2017-03-30] MEDS: Albuterol 2.5 MG/3 ML NEBULIZER IH SCH ×3 (10:06→21:53)
[2017-03-30] MEDS: *HR* Morphine 2 MG/ML SYRINGE IVP PRN ×3 (10:30→21:53)
[2017-03-30] MEDS: Metoclopramide 10 MG/2 ML VIAL IVP SCH ×2 (11:01→18:20)
[2017-03-30] MEDS: Nitroglycerin 0.4 MG TAB.SUBL SL SCH (15:05)
[2017-03-30] MEDS: Aspirin 81 MG TAB.CHEW PO SCH (15:05)
[2017-03-31] MEDS: *HR* Metoprolol 5 MG/5 ML VIAL IVP SCH ×3 (00:12→14:30)
[2017-03-31] MEDS: Metoclopramide 10 MG/2 ML VIAL IVP SCH ×2 (00:22→04:39)
[2017-03-31] MEDS: *HR* Morphine 2 MG/ML SYRINGE IVP PRN (00:22)
[2017-03-31] MEDS: Albuterol 2.5 MG/3 ML NEBULIZER IH SCH ×4 (04:21→22:10)
[2017-03-31] MEDS: *HR* Heparin 5,000 UNIT/ML VIAL SQ SCH ×2 (04:39→19:33)
[2017-03-31 07:54] LABS: Nucleated Red Blood Cells 0.2 /100 WBC (0)
[2017-03-31 07:56] LABS: Basophils % 0.1 %; Hematocrit 28.7 % (37.5-50.1); Hemoglobin 9.7 g/dL (12.9-16.9); Immature Granulocytes % 0.4 % (0-4); Immature Platelets 1.7 % (1.1-6.1); Lymphocytes # 0.9 K/mcL (0.6-4.6); Lymphocytes % 10.1 %; Mean Corpuscular HGB Conc 33.8 g/dL (31.6-35.5); Mean Corpuscular Hemoglobin 31.5 pg (28.0-33.3); Mean Corpuscular Volume 93.2 fL (83.0-100.0); Monocytes # 0.6 K/mcL (0.0-1.3); Neutrophils # 7.3 K/mcL (1.6-8.9); Red Blood Count 3.08 M/mcL (4.19-5.50); Red Cell Distribution Width 13.9 % (11.5-14.5); Segmented Neutrophils % 82.4 %
[2017-03-31 08:01] LABS: Platelet Count 98 K/mcL (140-400)
[2017-03-31] MEDS: Nicotine 21 MG PATCH.TD24 TD SCH (09:55)
--- NOTE | 2017-03-31 11:04 | Vascular/[facility] Progress Note ---
Date of Encounter: 03/31/17 Time of Encounter: 11:02 - Assessment and plan (1) CKD (chronic kidney disease), stage III Current Visit: Yes Status: Chronic The patient's serum creatinine is relatively stable. However because of his elevated I will defer using nonsteroidal anti-inflammatory medications for pain control and will need to continue morphine for at least another 24 hours. This was given however on an intermittent basis rather than through a SWIMMING POOL ATTENDANT device. (2) Tobacco abuse Current Visit: Yes Status: Chronic The patient's history of tobacco abuse contributes to his postoperative hypoxemia. I believe however has significant interstitial edema due to fluid and so therefore we'll eliminate all intravenous fluids and provide IV Lasix at this time. (3) Atherosclerosis of both lower extremities with rest pain Current Visit: Yes Status: Chronic Patient's aortobifemoral bypass graft appears to be patent. Perfusion is better on the left side versus the right. The patient does have a left femoral- popliteal bypass graft in position. There is no bypass graft of the lower extremity on the right side. The patient's ileus appears to be resolving. Patient states he had passed gas 2 last night. Therefore we will give him 1 dose of IV Dylon inhibitor and then began ambulation in the hallways and clear liquids today and resumption of his normal home medications. Qualifiers: Peripheral atherosclerosis artery type: [place] artery Qualified Code(s): I70.223 - Atherosclerosis of [place] arteries of extremities with rest pain, bilateral legs - Subjective Interval history: The patient is postoperative day #3 following aortobifemoral bypass graft. He has been plagued by hypoxemia. Yesterday afternoon after I left his O2 saturation was in the 80s on 100% nonrebreather. He was temporarily placed on BiPAP mask. He tolerated this poorly. More importantly he responded to the dose of IV Lasix for diuresis and had a significant urinary output. This in another itself I bleeding was most significant issue. On review his records I find that he has a history of systolic congestive heart failure. His ejection fraction was 45%. I believe that he requires further medical treatment and in particular needs his DYLON inhibitor. Therefore I'll give him a intravenous dose of Vasotec this morning. If he tolerates oral liquids we will then resume his medications which include include beta blockers, calcium channel blockers, and Dlyon inhibitors. The chest x-ray report from today shows more congestion than yesterday I believe this is the typical lag of the radiographic findings to clinical findings. Vital Signs, Last 4 Hours Temp Pulse Resp BP Pulse Ox 03/31/17 09:50 98.6 F 127 18 154/92 96 03/31/17 09:36 124 - Physical Examination General: Present: Conversant, No Apparent Distress HEENT: Present: Atraumatic Neck: Absent: JVD Cardiac: Present: Other (Persistent sinus tachycardia) Lungs: Present: Decreased breath sounds (Patient has crackles in the bases bilaterally. The upper airways are dramatically improved from my examination yesterday.) Neuro: Present: Alert and responsive, No focal deficits noted Vascular: Present: Color/Temperature (Left foot is warm and pink. Right foot is warmer than yesterday but still cool as compared to the left.) Abdomen: Present: Soft, Other (Hypoactive bowel sounds) - VTE Documentation of Mechanical Device: Intermittent pneumatic compression device Results 03/31/17 07:16 03/30/17 03:03 Lab Results, Last 24 hours 03/31/17 07:16 WBC 8.9 Hgb 9.7 L Hct 28.7 L Plt Count 98 L - Imaging / Other Tests Chest Xray: report reviewed, image reviewed Consult Discharge Plan - Plan Referrals: Kal Lugo MD [Primary Care Provider] - 04/01/17 9:45 am Maximino Campoverde MD [Partnered Physician] - 05/07/17 1:00 pm Prescriptions: OxyCODONE/APAP 5/325 [Percocet 5/325 MG] 1 each PO Q6HR PRN #25 tablet PRN Reason: postoperative pain
[2017-03-31] MEDS: Nitroglycerin 0.4 MG TAB.SUBL SL SCH (15:47)
[2017-03-31] MEDS ORDERED: Nitroglycerin 0.4 MG TAB.SUBL SL PRN (18:40)
[2017-03-31] MEDS: amLODIPine 5 MG TABLET PO SCH (19:32)
[2017-03-31] MEDS: Aspirin 81 MG TAB.CHEW PO SCH (19:32)
[2017-03-31] MEDS: Gabapentin 300 MG CAPSULE PO SCH (19:32)
[2017-04-01 04:42] LABS: Hemoglobin 8.7 g/dL (12.9-16.9); Mean Corpuscular HGB Conc 33.5 g/dL (31.6-35.5); Mean Corpuscular Volume 92.5 fL (83.0-100.0); Mean Platelet Volume 9.6 fL (9.4-12.4); Platelet Count 118 K/mcL (140-400); Red Blood Count 2.81 M/mcL (4.19-5.50)
[2017-04-01] MEDS: Albuterol 2.5 MG/3 ML NEBULIZER IH SCH ×4 (04:44→23:58)
[2017-04-01 05:05] LABS: BUN/Creatinine Ratio 23 (6-26); Blood Urea Nitrogen 26 mg/dL (8-23); Calcium 8.6 mg/dL (8.6-10.3); Carbon Dioxide 23 mEq/L (23-29); Chloride 112 mEq/L (98-107); Glucose 91 mg/dL (70-105); Osmolality,Calculated 296 (280-300); Potassium 3.5 mEq/L (3.5-5.1); Sodium 141 mEq/L (136-145); eGFR For African Americans > 60 (> 60); eGFR For Non-African Americans > 60 (> 60)
[2017-04-01] MEDS: *HR* Heparin 5,000 UNIT/ML VIAL SQ SCH ×2 (05:59→19:40)
[2017-04-01] MEDS: Nicotine 21 MG PATCH.TD24 TD SCH (08:33)
[2017-04-01] MEDS: amLODIPine 5 MG TABLET PO SCH (08:33)
[2017-04-01] MEDS: Gabapentin 300 MG CAPSULE PO SCH (08:33)
--- NOTE | 2017-04-01 13:43 | Vascular/[facility] Progress Note ---
Date of Encounter: 04/01/17 Time of Encounter: 13:41 - Assessment and plan (1) CKD (chronic kidney disease), stage III Current Visit: Yes Status: Chronic The laboratory values from this morning reveal normal BUN and creatinine. He has resolution of his kidney malfunction biochemically. (2) Tobacco abuse Current Visit: Yes Status: Chronic The patient's history of tobacco abuse contributes to his postoperative hypoxemia. (3) Atherosclerosis of both lower extremities with rest pain Current Visit: Yes Status: Chronic Patent aortobifemoral bypass graft. Excellent perfusion of lower extremities. If patient is able to maintain an acceptable O2 saturation which would be in the range of 90% the patient is doing well enough that he may be some appropriately discharged later today. The patient will be given a walk test to assess his response to exercise and O2 saturation. Qualifiers: Peripheral atherosclerosis artery type: [place] artery Qualified Code(s): I70.223 - Atherosclerosis of [place] arteries of extremities with rest pain, bilateral legs (4) Acute blood loss anemia Current Visit: Yes Status: Acute Patient has a decrease in his hemoglobin of 8.7 g. This is secondary to acute blood loss anemia as well as redistribution of his intravascular volume as he recovers from his aortic surgery. No treatment is necessary for this at this time. No transfusion is recommended. (5) CHF (congestive heart failure) Current Visit: Yes Status: Chronic Patient has history of congestive heart failure and is treated with MARY inhibitor, beta craig, and calcium channel craig. Qualifiers: Congestive heart failure type: systolic Congestive heart failure chronicity : chronic Qualified Code(s): I50.22 - Chronic systolic (congestive) heart failure - Subjective Interval history: The patient is postoperative day #4 following aortobifemoral bypass graft. He had an uneventful night. He has no new complaints today. He otherwise is feeling well. He has had no difficulties tolerating a clear liquid diet. He has had bowel movements. At this time the patient is on a trial of room air and his O2 saturation varies from 86-93% while I'm having a conversation with him. Of note the patient was restarted on his usual home meds yesterday afternoon. His sinus tachycardia has now resolved. Vital Signs, Last 4 Hours Temp Pulse Resp BP Pulse Ox 04/01/17 11:41 97.5 F L 94 18 144/82 100 04/01/17 10:53 18 90 - Physical Examination General: Present: Conversant, No Apparent Distress, Well developed, Well nourished HEENT: Present: Normocephaly Neck: Absent: JVD Cardiac: Present: Reg Rate and Rhythm, No Murmur Lungs: Present: Normal Breath Sounds, No Wheeze, Rales, Rhonchi Neuro: Present: Alert and responsive, No focal deficits noted Vascular: Present: Color/Temperature (Color and temperature of his feet are now essentially symmetrical. The coolness of the right foot has resolved.), Surgical incisions (Surgical dressings were all removed. The skin incisions are clean and dry. They're healing well.) Abdomen: Present: Soft, Non-tender, Other (Active bowel sounds) - VTE Documentation of Mechanical Device: Intermittent pneumatic compression device Results 04/01/17 04:02 04/01/17 04:02 Lab Results, Last 24 hours 04/01/17 04/01/17 04:02 04:02 WBC 5.8 Hgb 8.7 L Hct 26.0 L Plt Count 118 L Sodium 141 Potassium 3.5 Chloride 112 H Carbon Dioxide 23 BUN 26 H Creatinine 1.11 Glucose 91 Calcium 8.6 Consult Discharge Plan - Plan Referrals: Kal Lugo MD [Primary Care Provider] - 04/01/17 9:45 am Maximino Campoverde MD [Partnered Physician] - 05/07/17 1:00 pm Prescriptions: OxyCODONE/APAP 5/325 [Percocet 5/325 MG] 1 each PO Q6HR PRN #25 tablet PRN Reason: postoperative pain
[2017-04-01] MEDS: Aspirin 81 MG TAB.CHEW PO SCH (19:39)
[2017-04-02] MEDS: Albuterol 2.5 MG/3 ML NEBULIZER IH SCH ×4 (03:46→22:26)
[2017-04-02 04:42] LABS: Basophils % 0.1 %; Eosinophils # 0.1 K/mcL (0.0-0.6); Eosinophils % 1.4 %; Hematocrit 28.5 % (37.5-50.1); Hemoglobin 9.5 g/dL (12.9-16.9); Lymphocytes # 0.6 K/mcL (0.6-4.6); Lymphocytes % 9.1 %; Mean Corpuscular HGB Conc 33.3 g/dL (31.6-35.5); Mean Corpuscular Hemoglobin 30.9 pg (28.0-33.3); Mean Corpuscular Volume 92.8 fL (83.0-100.0); Mean Platelet Volume 9.3 fL (9.4-12.4); Monocytes # 0.4 K/mcL (0.0-1.3); Monocytes % 5.1 %; Neutrophils # 5.8 K/mcL (1.6-8.9); Nucleated Red Blood Cells 0.3 /100 WBC (0); Platelet Count 140 K/mcL (140-400); Red Blood Count 3.07 M/mcL (4.19-5.50); Red Cell Distribution Width 13.8 % (11.5-14.5); Segmented Neutrophils % 83.3 %
[2017-04-02] MEDS ORDERED: 0.9 % Sodium Chloride 500 ML ONE (04:51)
[2017-04-02 04:59] LABS: BUN/Creatinine Ratio 16 (6-26); Blood Urea Nitrogen 19 mg/dL (8-23); Calcium 8.7 mg/dL (8.6-10.3); Carbon Dioxide 24 mEq/L (23-29); Chloride 107 mEq/L (98-107); Glucose 123 mg/dL (70-105); Magnesium 1.6 mg/dL (1.6-2.6); Osmolality,Calculated 286 (280-300); Potassium 3.4 mEq/L (3.5-5.1); Sodium 136 mEq/L (136-145); eGFR For African Americans > 60 (> 60); eGFR For Non-African Americans > 60 (> 60)
[2017-04-02] MEDS: *HR* Heparin 5,000 UNIT/ML VIAL SQ SCH ×2 (05:07→17:56)
--- NOTE | 2017-04-02 07:53 | Event Note ---
Date of Encounter: 04/02/17 Time of Encounter: 07:51 I was notified at approximately 4:30 this morning that the patient had gone into Onset atrial fibrillation with rapid ventricular response. The patient was placed on a Cardizem drip. He continues to be tachycardic and in atrial fibrillation. His Cardizem drip is now 12.5. A cardiology consultation will be requested for this morning. A serum troponin will also be requested. Electrolytes performed last night showed no abnormalities. The patient had otherwise been doing well over the last 24-48 hours. He was actually discharged in the afternoon of yesterday but could not obtain a ride and so was staying until today to get that ride home. The patient does have a history of systolic hypertension with an ejection fraction of 45%.
[2017-04-02] MEDS: amLODIPine 5 MG TABLET PO SCH (08:48)
[2017-04-02] MEDS: Nicotine 21 MG PATCH.TD24 TD SCH (08:48)
[2017-04-02] MEDS: Gabapentin 300 MG CAPSULE PO SCH (08:49)
--- NOTE | 2017-04-02 11:46 | Cardiology Consult Note ---
Date of Encounter: 04/02/17 Time of Encounter: 11:40 Assessment and Plan (1) Sinus tachycardia Current Visit: Yes Status: Acute No evidence of A-Fib. EKG and telemetry review is sinus tachycardia--in setting of possible infectious process with low grade temps and chills, post op, blood loss in post op setting. Repeat CXR ordered. Recommend consulting IM, concerns for PNA. Stop cardizem gtt since pt is SR. Increase Lopressor to 100mg BID. Echo ordered. (2) CAD in [place] artery Current Visit: Yes Status: Chronic LHC 2013 showed moderate CAD with severe mid distal left circumflex stenosis. Echo 2013 LVEF 45%; mid and basal inferior lateral hypokinesis. Continue ASA, Statin, Plavix, BB, ACEi. Denies chest pain. Negative stress test 03/21/15. (3) Cardiomyopathy Current Visit: Yes Status: Chronic EF in 2013 LVEF mildly reduced, 45%; mid and basal inferior lateral hypokinesis. Continue BB and ACEi. Recheck echo. Euvolemic on exam, but admits to increased cough and dyspnea. CXR 03/31/16 progressing vascular interstitial pattern concerning for vascular congestion. Qualifiers: Cardiomyopathy type: ischemic Qualified Code(s): I25.5 - Ischemic cardiomyopathy (4) CHF (congestive heart failure) Current Visit: Yes Status: Chronic Known mildly reduced EF 45% on echo in 2013. Recheck echo. No overt fluid volume overload on exam. CXR 03/31/17 progressing vascular interstitial pattern concerning for vascular congestion. Qualifiers: Congestive heart failure type: systolic Congestive heart failure chronicity : chronic Qualified Code(s): I50.22 - Chronic systolic (congestive) heart failure (5) Essential hypertension Current Visit: Yes Status: Chronic Currently controlled. (6) Elevated troponin Current Visit: Yes Status: Acute Troponin 0.08 in setting of tachycardia and acute blood loss s/p vascular surgery, possible infectious process given low grade temps, chills. Nondiagnostic for ACS. Suspect demand ischemia. Echo to evaluate structure and function. Pt denies chest pain. Discussion w patient/family: The assessment and plan as outlined above was discussed with the patient and/or family members who expressed understanding and agreement. All questions were answered. Thank you for involving us in the care of your patient. Please call with any questions. History of Present Illness Consult date: 04/02/17 Requesting physician: Levon Chavez Consult reason: A-Fib RVR Chief complaint: cough, dyspnea History of present illness: Mr. Guan is a 66 year old male with PMH of CAD, systolic CHF, HTN, CKD stage 3, tobacco abuse, PVD that is post op day #5 s/p aortobifemoral bypass graft. He was noted to be tachycardic overnight, concerns for A-Fib and cardiology was consulted. HR at bedside currently low 100s and appears to be in sinus tach. Pt admits to a cough that started the day prior to his surgery, mild worsening shortness of breath. He denies chest pain. He endorses chills. Low grade temps, highest 100.0. CXR 03/31/16 showed progressing vascular interstitial pattern, possible vascular congestion. CXR 03/30/16 showed bibasilar opacities, PNA as a differential. Pt denies any hx of A-Fib, denies palpitations. Troponin 0.08. Pt is on cardizem gtt at 15mg/hr. Acute blood loss anemia secondary to surgery, HGB 9.5 today, baseline range 12.3-17. Upon telemetry and EKG reviews, no A-Fib is noted, all appears to be sinus tachycardia. Prior CV testing: Pharmacologic nuclear stress test 03/21/15: Perfusion imaging negative for ischemia or infarct. Gated EF 50%. LHC 08/20/2013 Impressions:There is moderate CAD with severe mid distal left circumflex stenosis; The left ventricle is normal and has low normal contractility EF 50% Severe PAD with long left common iliac occlusion and right SFA occlusion. Echo 08/13/2013 Impressions:LVEF 45%; mid and basal inferior lateral hypokinesis. Normal LV size and wall thickness. Mild diastolic dysfunction. Normal left atrial size. Normal right ventricular size and function.Normal right atrial size. Mild mitral regurgitation. Mildly sclerotic trileaflet aortic valve without stenosis. Estimated RVSP was 27 mmHg. No pulmonary hypertension.The IVC is not dilated. Past Med Surg Social Fam HX - Past Medical History Medical history: cardiomyopathy, CHF, coronary artery disease, CVA, hyperlipidemia, hypertension, peripheral artery disease, renal disease Psychiatric history: anxiety, depression - Past Surgical History Surgical History: angioplasty/stent - Social History Smoking Status: Current every day smoker Smokeless Tobacco Status: No Alcohol use: rarely Drug use: none - Family History Father Living Status: Hx Family Cardiac Disorders: Yes (CHF) Hx Family Respiratory Disorders: Yes (COPD, Emphysema) Hx Family Endocrine Disorder: Yes (DM) Mother Living Status: Hx Family Cardiac Disorders: Yes (CHF) Hx Family Endocrine Disorder: Yes (DM) Medications and Allergies Aspirin 81 mg PO QPM 11/11/14 [History] Atorvastatin [Lipitor] 80 mg PO QPM 11/11/14 [History] Cilostazol [Pletal] 100 mg PO BID 11/11/14 [History] Metoprolol [Lopressor] 80 mg PO BID 11/11/14 [History] Nitroglycerin 0.4 mg SL Q5MIN 11/11/14 [History] Sertraline [Zoloft] 50 mg PO QPM 11/11/14 [History] amLODIPine [Norvasc] 10 mg PO DAILY 11/11/14 [History] Clopidogrel [Plavix] 75 mg PO DAILY 06/28/15 [History] Lisinopril [Zestril] 20 mg PO DAILY 06/28/15 [History] Gabapentin [Neurontin] 300 mg PO DAILY 03/28/17 [History] OxyCODONE/APAP 5/325 [Percocet 5/325 MG] 1 each PO Q6HR PRN #25 tablet 03/29/17 [Rx] 3 Allergy/AdvReac Type Severity Reaction Status Date / Time No Known Allergies Allergy Verified 03/28/17 06:48 All Systems Review: A 10-system review of systems was performed and is negative for pertinent findings except as documented above in the HPI. - Constitutional Constitutional: chills - Cardiovascular Cardiovascular: as per HPI, dyspnea at rest, dyspnea on exertion - Respiratory Respiratory: cough, dyspnea Physical Examination Vital Signs, Last 4 Hours Temp Pulse Resp BP Pulse Ox 04/02/17 11:03 100.0 F H 102 18 133/82 90 04/02/17 10:54 20 93 04/02/17 08:43 99.2 F 124 22 126/68 93 Vital Signs Temp Pulse Resp BP Pulse Ox 04/02/17 11:03 100.0 F H 102 18 133/82 90 04/02/17 10:54 20 93 04/02/17 08:43 99.2 F 124 22 126/68 93 04/02/17 07:12 125 04/02/17 06:20 126 20 135/71 88 04/02/17 06:13 131 20 154/79 91 04/02/17 04:20 130 21 93 04/02/17 04:10 99.4 F 133 21 153/86 93 04/02/17 03:47 20 92 04/02/17 00:19 109 20 92 04/01/17 23:42 98.6 F 109 20 143/74 92 04/01/17 21:45 101 20 92 04/01/17 20:23 99.0 F 110 18 129/82 91 04/01/17 16:33 97.7 F 104 18 118/72 90 04/01/17 16:11 18 100 Intake and Output 04/01/17 04/02/17 04/02/17 23:59 07:59 15:59 Intake Total 480 / 480 519 / 519 480 / 480 Output Total 0 / 0 Balance 480 / 480 519 / 519 480 / 480 Intake: IV Fluids Cardizem 125 MG In 0.9 % Sodium Chloride 100 ML @ 5 MG/HR 5 mls/hr IVC .Q24H MARCELA Rx#: [id number] Oral 480 / 480 500 / 500 480 / 480 Output: Urine 0 / 0 Other: Meal Breakfast Percent of Meal Consumed 90% # Voids 1 3 Weight 102 kg Patient Weight 04/02/17 23:59 Weight 102 kg General: Conversant, No Apparent Distress HEENT: Atraumatic, Normocephaly, Mucus Membranes Moist Neck: Normal carotid pulses Cardiac: Reg Rate and Rhythm, Normal S1 and S2, No Murmur Lungs: Other (diminished) Neuro: Alert and responsive, No focal deficits noted Abdomen: Soft, Other (tenderness at incision site) Skin: No rashes noted on visualized skin Musculoskeletal: No Chest Wall Tenderness Extremities: No Clubbing, No Cyanosis, No Edema Results 04/02/17 04:33 04/02/17 04:33 Lab Results 04/02/17 04/02/17 04/02/17 04:33 04:33 07:51 WBC 6.9 Hgb 9.5 L Hct 28.5 L Plt Count 140 Sodium 136 Potassium 3.4 L Chloride 107 Carbon Dioxide 24 BUN 19 Creatinine 1.16 Glucose 123 H Calcium 8.7 Magnesium 1.6 Troponin I 0.08 H* Short CBC 04/02/17 Range/Units 04:33 WBC 6.9 (4.3-11.1) K/mcL Hgb 9.5 L (12.9-16.9) g/dL Hct 28.5 L (37.5-50.1) % Plt Count 140 (140-400) K/mcL Neutrophils # 5.8 (1.6-8.9) K/mcL BMP 04/02/17 Range/Units 04:33 Sodium 136 (136-145) mEq/L Potassium 3.4 L (3.5-5.1) mEq/L Chloride 107 (98-107) mEq/L Carbon Dioxide 24 (23-29) mEq/L BUN 19 (8-23) mg/dL Creatinine 1.16 (0.70-1.30) mg/dL Glucose 123 H (70-105) mg/dL Calcium 8.7 (8.6-10.3) mg/dL Cardiac Enzymes 04/02/17 Range/Units 07:51 Troponin I 0.08 H* (< 0.04) ng/mL Active Medications Albuterol Sulfate (Proventil Neb) 2.5 mg IH [id number] [facility] PRN Reason: Protocol Stop: 09/29/17 10:01 Last Admin: 04/02/17 10:52 Dose: 2.5 mg Amlodipine Besylate (Norvasc) 10 mg PO DAILY [facility] PRN Reason: Protocol Stop: 09/30/17 18:01 Last Admin: 04/02/17 08:48 Dose: 10 mg Aspirin (Aspirin) 81 mg PO QPM MARCELA Stop: 09/28/17 18:01 Last Admin: 04/01/17 19:39 Dose: 81 mg Atorvastatin Calcium (Lipitor) 80 mg PO QPM MARCELA Stop: 09/30/17 18:01 Last Admin: 04/01/17 19:39 Dose: 80 mg Cilostazol (Pletal) 100 mg PO BID MARCELA Stop: 09/30/17 21:01 Last Admin: 04/02/17 08:49 Dose: 100 mg Clopidogrel Bisulfate (Plavix) 75 mg PO DAILY [facility] Stop: 09/30/17 18:01 Last Admin: 04/02/17 08:49 Dose: 75 mg Gabapentin (Neurontin) 300 mg PO DAILY [facility] Stop: 09/30/17 18:01 Last Admin: 04/02/17 08:49 Dose: 300 mg Heparin Sodium (Porcine) (Heparin) 5,000 unit SQ Q12HR MARCELA Stop: 09/28/17 06:01 Last Admin: 04/02/17 05:07 Dose: 5,000 unit Diltiazem HCl 125 mg/ Sodium (Chloride) 125 mls @ 5 mls/hr IVC .Q24H MARCELA; 5 MG/ HR PRN Reason: Protocol Stop: 10/02/17 04:31 Last Titration: 04/02/17 07:14 Dose: 12.5 mg/hr, 12.5 mls/hr Labetalol HCl (Labetalol) 10 mg IVP Q1H PRN PRN Reason: SBP greater than 160 Stop: 09/27/17 16:20 Lisinopril (Zestril) 20 mg PO DAILY [facility] PRN Reason: Protocol Stop: 09/30/17 18:01 Last Admin: 04/02/17 08:48 Dose: 20 mg Metoprolol Tartrate (Lopressor) 80 mg PO BID [facility] Stop: 09/30/17 21:01 Last Admin: 04/02/17 08:49 Dose: 80 mg Morphine Sulfate (Morphine Sulfate) 4 mg IVP Q2H PRN PRN Reason: Breakthrough Pain Stop: 09/29/17 09:11 Last Admin: 03/30/17 13:06 Dose: 4 mg Morphine Sulfate (Morphine Sulfate) 2 mg IVP Q2H PRN PRN Reason: Pain Stop: 09/29/17 09:10 Last Admin: 03/31/17 00:22 Dose: 2 mg Naloxone HCl (Narcan) 0.4 mg IVP Q2MIN PRN PRN Reason: SEE COMMENTS Stop: 09/27/17 16:20 Naloxone HCl (Narcan) 0.4 mg IVP Q2MIN PRN PRN Reason: SEE COMMENTS Stop: 09/27/17 16:20 Nicotine (Nicoderm) 21 mg TD DAILY MARCELA PRN Reason: Protocol Stop: 07/14/18 10:31 Last Admin: 04/02/17 08:48 Dose: 21 mg Nitroglycerin (Nitroglycerin) 0.4 mg SL Q5MIN PRN PRN Reason: Chest Pain Stop: 09/27/17 16:20 Ondansetron HCl (Zofran) 4 mg IVP Q8HR PRN PRN Reason: Nausea And Vomiting Stop: 09/27/17 16:20 Last Admin: 03/29/17 09:27 Dose: 4 mg Sertraline HCl (Zoloft) 50 mg PO QPM MARCELA Stop: 09/30/17 18:01 Last Admin: 04/01/17 19:39 Dose: 50 mg - Imaging and Cardiology Stress Test: report reviewed Echo: report reviewed Cardiac cath: report reviewed - EKG Interpretation EKG results cardiology: personally reviewed, other (Currently sinus tach, AVG HR overnight 114) Consult Discharge Plan - Plan Instructions: Oxycodone/Acetaminophen (By mouth) Referrals: Kal Lugo MD [Primary Care Provider] - 04/01/17 9:45 am Maximino Campoverde MD [Partnered Physician] - 05/07/17 1:00 pm Prescriptions: OxyCODONE/APAP 5/325 [Percocet 5/325 MG] 1 each PO Q6HR PRN #25 tablet PRN Reason: postoperative pain
[2017-04-02] MEDS ORDERED: Furosemide 20 MG/2 ML VIAL IVP ONE (11:59)
--- NOTE | 2017-04-02 13:53 | Electrocardiograph Report ---
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
--- NOTE | 2017-04-02 14:00 | Electrocardiograph Report ---
[address] [address] Test Date: 2017-04-02 Pat Name: Rony Guan Department: 110 Room: 2N09 Gender: M Application Support Technician: MICHEL : 1950 Requested By: Maximino Campoverde Order Number: [id number] Reading MD: Alejandra Canales Measurements Intervals [place] Rate: 136 P: SD: 0 QRS: -69 QRSD: 156 T: 47 QT: 335 QTc: 415 Interpretive Statements ATRIAL FLUTTER/TACHYCARDIA WITH RAPID VENTRICULAR RESPONSE RIGHT BUNDLE BRANCH BLOCK LEFT ANTERIOR FASCICULAR BLOCK Electronically Signed On 04-02-2017 13:58:15 EST by Alejandra Canales
--- NOTE | 2017-04-02 16:05 | Vascular/[facility] Progress Note ---
Date of Encounter: 04/02/17 Time of Encounter: 11:00 - Assessment and plan (1) Atherosclerosis of both lower extremities with rest pain Current Visit: Yes Status: Chronic The patient is postoperative day #5 after an aortobifemoral artery bypass. His incisions are healing well. His feet are warm and pedal signals are present. He will continue with a regular diet. The patient does not appear to have atrial fibrillation. He has sinus tachycardia. His beta craig will be increased. He will also receive lasix today. Further recommendations per Cardiology. Possible discharge tomorrow. Qualifiers: Peripheral atherosclerosis artery type: [place] artery Qualified Code(s): I70.223 - Atherosclerosis of [place] arteries of extremities with rest pain, bilateral legs (2) Essential hypertension Current Visit: Yes Status: Chronic (3) Mixed hyperlipidemia Current Visit: Yes Status: Chronic (4) CAD in [place] artery Current Visit: Yes Status: Chronic (5) Acute blood loss anemia Current Visit: Yes Status: Acute The patient has acute expected postoperative blood loss anemia. He is hemodynamically stable without evidence of ongoing blood loss. (6) CKD (chronic kidney disease), stage III Current Visit: Yes Status: Chronic The patient has chronic kidney disease stage III. He continues to make urine. Will continue with intravenous fluids. Recheck labs in am. Leave lang catheter in place to monitor urine output. (7) Tobacco abuse Current Visit: Yes Status: Chronic Will start nicotine patch. Smoking cessation discussed. (8) Moderate protein malnutrition Current Visit: Yes Status: Chronic - Subjective Interval history: The patient is alert and comfortable. He is tolerating his diet well. He denies chest pain or shortness of breath. Vital Signs, Last 4 Hours Temp Pulse Resp BP Pulse Ox 04/02/17 15:31 100 F H 109 18 128/68 94 - Physical Examination General: Present: Conversant, No Apparent Distress HEENT: Present: Pupils equal Neck: Absent: JVD Cardiac: Present: Other (sinus tachycardia) Lungs: Present: Normal Breath Sounds, No Wheeze, Rales, Rhonchi Neuro: Present: Alert and responsive, No focal deficits noted Vascular: Present: Normal capillary refill, Surgical incisions (incisions clean and dry without erythema or drainage). Absent: Cyanosis, Edema Abdomen: Present: Soft, Non-tender. Absent: Masses Skin: Present: No rashes noted on visualized skin Musculoskeletal: Present: No Chest Wall Tenderness - VTE Documentation of Mechanical Device: Intermittent pneumatic compression device Results 04/02/17 04:33 04/02/17 04:33 Lab Results, Last 24 hours 04/02/17 04/02/17 04/02/17 04:33 04:33 07:51 WBC 6.9 Hgb 9.5 L Hct 28.5 L Plt Count 140 Sodium 136 Potassium 3.4 L Chloride 107 Carbon Dioxide 24 BUN 19 Creatinine 1.16 Glucose 123 H Calcium 8.7 Magnesium 1.6 Troponin I 0.08 H* Consult Discharge Plan - Plan Instructions: Oxycodone/Acetaminophen (By mouth) Referrals: Kal Lugo MD [Primary Care Provider] - 04/01/17 9:45 am Maximino Campoverde MD [Partnered Physician] - 05/07/17 1:00 pm Prescriptions: OxyCODONE/APAP 5/325 [Percocet 5/325 MG] 1 each PO Q6HR PRN #25 tablet PRN Reason: postoperative pain
[2017-04-02] MEDS: Aspirin 81 MG TAB.CHEW PO SCH (17:55)
[2017-04-02] MEDS: Metoprolol 100 MG TABLET PO SCH (21:15)
[2017-04-03] MEDS: Acetaminophen 325 MG TABLET PO PRN ×3 (01:01→15:29)
[2017-04-03] MEDS: Albuterol 2.5 MG/3 ML NEBULIZER IH SCH ×4 (05:01→22:15)
[2017-04-03] MEDS: *HR* Heparin 5,000 UNIT/ML VIAL SQ SCH (06:31)
[2017-04-03] MEDS: Metoprolol 100 MG TABLET PO SCH ×2 (07:35→20:56)
[2017-04-03] MEDS: Nicotine 21 MG PATCH.TD24 TD SCH (07:35)
[2017-04-03] MEDS: Gabapentin 300 MG CAPSULE PO SCH (07:35)
[2017-04-03] MEDS: Ondansetron 4 MG/2 ML VIAL IVP PRN (07:39)
[2017-04-03 08:31] LABS: Calcium 7.9 mg/dL (8.6-10.3); Magnesium 1.5 mg/dL (1.6-2.6); Potassium 2.9 mEq/L (3.5-5.1)
[2017-04-03 08:42] LABS: Basophils % 0.1 %; Eosinophils % 0.2 %; Hemoglobin 8.2 g/dL (12.9-16.9); Immature Granulocytes % 0.8 % (0-4); Lymphocytes # 0.8 K/mcL (0.6-4.6); Lymphocytes % 5.4 %; Mean Corpuscular HGB Conc 34.2 g/dL (31.6-35.5); Mean Corpuscular Hemoglobin 31.1 pg (28.0-33.3); Mean Corpuscular Volume 90.9 fL (83.0-100.0); Mean Platelet Volume 9.7 fL (9.4-12.4); Monocytes # 1.1 K/mcL (0.0-1.3); Monocytes % 7.1 %; Neutrophils # 13.4 K/mcL (1.6-8.9); Nucleated Red Blood Cells 0.1 /100 WBC (0); Platelet Count 147 K/mcL (140-400); Red Blood Count 2.64 M/mcL (4.19-5.50); Red Cell Distribution Width 13.7 % (11.5-14.5); Segmented Neutrophils % 86.4 %
--- NOTE | 2017-04-03 09:49 | Cardiology Progress Note ---
Date of Encounter: 04/03/17 Time of Encounter: 09:44 Assessment and Plan (1) Sinus tachycardia Current Visit: Yes Status: Acute No evidence of A-Fib. EKG and telemetry review is sinus tachycardia--in setting of suspected infectious process with low grade temps and chills, leukocytosis, post op, blood loss in post op setting. Repeat CXR diminishing pulmonary edema. Recommend consulting IM, concerns for PNA or other infectious process. Continue Lopressor 100mg BID. Echo EF preserved/improved from prior. Cardiology signing off. Reconsult PRN. (2) CAD in [place] artery Current Visit: Yes Status: Chronic [facility] 2013 showed moderate CAD with severe mid distal left circumflex stenosis. Echo 2013 LVEF 45%; mid and basal inferior lateral hypokinesis. Continue ASA, Statin, Plavix, BB, ACEi. Denies chest pain. Negative stress test 03/21/15. (3) CHF (congestive heart failure) Current Visit: Yes Status: Chronic Previously had mildly reduced EF 45% on echo in 2013. Rechecked echo and EF has now improved to 60-65%, moderate diastolic dysfunction. No overt fluid volume overload on exam. CXR yesterday diminishing pulmonary edema. Qualifiers: Congestive heart failure type: diastolic Congestive heart failure chronicity: chronic Qualified Code(s): I50.32 - Chronic diastolic (congestive ) heart failure (4) Essential hypertension Current Visit: Yes Status: Chronic Currently controlled. (5) Elevated troponin Current Visit: Yes Status: Acute Troponin 0.08 in setting of tachycardia and acute blood loss s/p vascular surgery, possible infectious process given low grade temps, chills, leukocytosis. Nondiagnostic for ACS. Suspect demand ischemia. Echo shows improved EF 60-65%. Pt denies chest pain. Discussion w patient/family: The assessment and plan as outlined above was discussed with the patient and/or family members who expressed understanding and agreement. All questions were answered. Thank you for involving us in the care of your patient. Please call with any questions. Subjective Principal diagnosis: Sinus tach Interval history: Echo resulted--EF has improved since 2014, now 60-65%, moderate diastolic dysfunction, mild MR and TR, mild phtn. WBC increased today to 15.5. Highest temp noted 101.4. Sinus tach, 12 hr AVG HR 110. No A-Fib noted. Objective Vital Signs, Last 4 Hours Temp Pulse Resp BP Pulse Ox 04/03/17 07:10 100.6 F H 107 20 107/73 94 04/03/17 06:47 101.2 F H Vital Signs Temp Pulse Resp BP Pulse Ox 04/03/17 07:10 100.6 F H 107 20 107/73 94 04/03/17 06:47 101.2 F H 04/03/17 05:01 18 95 04/03/17 04:45 110 18 95 04/03/17 04:28 100.1 F H 110 20 131/64 93 04/03/17 03:05 110 19 92 04/03/17 00:10 101.4 F H 108 19 114/58 92 04/02/17 22:34 122 20 92 04/02/17 22:26 20 92 04/02/17 18:42 100.8 F H 118 19 123/68 93 04/02/17 15:48 18 91 04/02/17 15:31 100 F H 109 18 128/68 94 04/02/17 11:03 100.0 F H 102 18 133/82 90 04/02/17 10:54 20 93 Intake and Output 04/02/17 04/03/17 04/03/17 23:59 07:59 15:59 Intake Total 240 / 240 Output Total 100 / 100 Balance 240 / 240 -100 / -100 Intake: Oral 240 / 240 Output: Urine 100 / 100 Other: Meal Dinner Percent of Meal Consumed 100% Weight 100.2 kg Patient Weight 04/03/17 23:59 Weight 100.2 kg General: Conversant, No Apparent Distress HEENT: Atraumatic, Normocephaly, Mucus Membranes Moist Neck: No JVD, Normal carotid pulses Cardiac: Reg Rate and Rhythm, Normal S1 and S2, No Murmur Lungs: Normal Breath Sounds, No Wheeze, Rales, Rhonchi Neuro: Alert and responsive, No focal deficits noted Abdomen: Soft, Non-Tender Skin: No rashes noted on visualized skin Musculoskeletal: No Chest Wall Tenderness Extremities: No Clubbing, No Cyanosis, No Edema, Normal Pulses Results 04/03/17 08:10 04/03/17 08:10 Lab Results 04/03/17 04/03/17 08:10 08:10 WBC 15.5 H D Hgb 8.2 L Hct 24.0 L Plt Count 147 Sodium 130 L Potassium 2.9 L Chloride 103 Carbon Dioxide 22 L BUN 18 Creatinine 1.46 H Glucose 109 H Calcium 7.9 L Magnesium 1.5 L Short CBC 04/03/17 Range/Units 08:10 WBC 15.5 H D (4.3-11.1) K/mcL Hgb 8.2 L (12.9-16.9) g/dL Hct 24.0 L (37.5-50.1) % Plt Count 147 (140-400) K/mcL Neutrophils # 13.4 H (1.6-8.9) K/mcL BMP 04/03/17 Range/Units 08:10 Sodium 130 L (136-145) mEq/L Potassium 2.9 L (3.5-5.1) mEq/L Chloride 103 (98-107) mEq/L Carbon Dioxide 22 L (23-29) mEq/L BUN 18 (8-23) mg/dL Creatinine 1.46 H (0.70-1.30) mg/dL Glucose 109 H (70-105) mg/dL Calcium 7.9 L (8.6-10.3) mg/dL Impressions Chest X-Ray 04/02/17 12:06 IMPRESSION: Decreasing interstitial prominence consistent with diminishing pulmonary edema. Small pleural effusions. D/ / 04/02/2017 13:12:01 Som Simmons MD / deanna Interpreting Provider: Som Simmons MD Echocardiogram 04/02/17 12:16 Impressions: LVEF 60-65%. Moderate left ventricular diastolic dysfunction. Normal right ventricular structure and function. Mildly sclerotic aortic valve leaflets. Mild mitral regurgitation. Mild tricuspid regurgitation. Mild pulmonary hypertension by TR gradient. IVC is not well visualized. Left Ventricular Wall Motion: Rest Echo Findings All wall segments showed normal motion. Findings: Study Quality * Technically adequate exam. ECG Findings * Sinus tachycardia with BBB. Left Ventricle * LVEF 60-65%. * Normal LV chamber size, wall thickness and function. * Moderate left ventricular diastolic dysfunction. Right Ventricle * Normal right ventricular structure and function. Left Atrium * Moderately dilated left atrium. Right Atrium * Normal right atrial size. Aortic Valve * No aortic regurgitation. * Aortic valve not well visualized. * Mildly sclerotic aortic valve leaflets. * No aortic stenosis. Mitral Valve * Normal mitral valve structure. * No mitral stenosis. * Mild mitral regurgitation. Tricuspid Valve * Normal tricuspid valve structure. * Mild tricuspid regurgitation. Pulmonic Valve * Pulmonic valve is not well visualized. * No pulmonic stenosis. * No pulmonic regurgitation. Pulmonary Artery * Pulmonary artery not well visualized. Aorta * Not well visualized. Interatrial Septum * Interatrial septum not well evaluated. Pericardium * There is no pericardial effusion present. IVC * The IVC is not well evaluated. Active Medications Acetaminophen (Tylenol) 650 mg PO Q6HR PRN PRN Reason: Fever Stop: 10/03/17 00:15 Last Admin: 04/03/17 07:35 Dose: 650 mg Albuterol Sulfate (Proventil Neb) 2.5 mg IH [id number] COUNT INCLUDES THE [facility] PRN Reason: Protocol Stop: 09/29/17 10:01 Last Admin: 04/03/17 05:01 Dose: 2.5 mg Amlodipine Besylate (Norvasc) 10 mg PO DAILY COUNT INCLUDES THE [facility] PRN Reason: Protocol Stop: 09/30/17 18:01 Last Admin: 04/02/17 08:48 Dose: 10 mg Aspirin (Aspirin) 81 mg PO QPM MARCELA Stop: 09/28/17 18:01 Last Admin: 04/02/17 17:55 Dose: 81 mg Atorvastatin Calcium (Lipitor) 80 mg PO QPM MARCELA Stop: 09/30/17 18:01 Last Admin: 04/02/17 17:55 Dose: 80 mg Calcium Carbonate (Tums) 1,000 mg PO Q4HR PRN; Protocol PRN Reason: Heartburn Stop: 10/02/17 21:04 Cilostazol (Pletal) 100 mg PO BID COUNT INCLUDES THE [facility] Stop: 09/30/17 21:01 Last Admin: 04/03/17 07:35 Dose: 100 mg Clopidogrel Bisulfate (Plavix) 75 mg PO DAILY COUNT INCLUDES THE [facility] Stop: 09/30/17 18:01 Last Admin: 04/03/17 07:35 Dose: 75 mg Gabapentin (Neurontin) 300 mg PO DAILY COUNT INCLUDES THE [facility] Stop: 09/30/17 18:01 Last Admin: 04/03/17 07:35 Dose: 300 mg Heparin Sodium (Porcine) (Heparin) 5,000 unit SQ Q12HR MARCELA Stop: 09/28/17 06:01 Last Admin: 04/03/17 06:31 Dose: 5,000 unit Labetalol HCl (Labetalol) 10 mg IVP Q1H PRN PRN Reason: SBP greater than 160 Stop: 09/27/17 16:20 Lisinopril (Zestril) 20 mg PO DAILY COUNT INCLUDES THE [facility] PRN Reason: Protocol Stop: 09/30/17 18:01 Last Admin: 04/02/17 08:48 Dose: 20 mg Metoprolol Tartrate (Lopressor) 100 mg PO BID COUNT INCLUDES THE [facility] Stop: 10/02/17 21:01 Last Admin: 04/03/17 07:35 Dose: 100 mg Morphine Sulfate (Morphine Sulfate) 4 mg IVP Q2H PRN PRN Reason: Breakthrough Pain Stop: 09/29/17 09:11 Last Admin: 03/30/17 13:06 Dose: 4 mg Morphine Sulfate (Morphine Sulfate) 2 mg IVP Q2H PRN PRN Reason: Pain Stop: 09/29/17 09:10 Last Admin: 03/31/17 00:22 Dose: 2 mg Naloxone HCl (Narcan) 0.4 mg IVP Q2MIN PRN PRN Reason: SEE COMMENTS Stop: 09/27/17 16:20 Naloxone HCl (Narcan) 0.4 mg IVP Q2MIN PRN PRN Reason: SEE COMMENTS Stop: 09/27/17 16:20 Nicotine (Nicoderm) 21 mg TD DAILY COUNT INCLUDES THE [facility] PRN Reason: Protocol Stop: 09/28/17 10:31 Last Admin: 04/03/17 07:35 Dose: 21 mg Nitroglycerin (Nitroglycerin) 0.4 mg SL Q5MIN PRN PRN Reason: Chest Pain Stop: 09/27/17 16:20 Ondansetron HCl (Zofran) 4 mg IVP Q8HR PRN PRN Reason: Nausea And Vomiting Stop: 09/27/17 16:20 Last Admin: 04/03/17 07:39 Dose: 4 mg Sertraline HCl (Zoloft) 50 mg PO QPM COUNT INCLUDES THE [facility] Stop: 09/30/17 18:01 Last Admin: 04/02/17 17:56 Dose: Not Given - Imaging and Cardiology Echo: report reviewed - EKG Interpretation EKG results cardiology: other (12 hr tele AVG HR 110, SR) - VTE Documentation of Mechanical Device: Intermittent pneumatic compression device Consult Discharge Plan - Plan Instructions: Oxycodone/Acetaminophen (By mouth) Referrals: Kal Lugo MD [Primary Care Provider] - 04/01/17 9:45 am Maximino Campoverde MD [Partnered Physician] - 05/07/17 1:00 pm Prescriptions: OxyCODONE/APAP 5/325 [Percocet 5/325 MG] 1 each PO Q6HR PRN #25 tablet PRN Reason: postoperative pain
[2017-04-03] MEDS: amLODIPine 5 MG TABLET PO SCH (10:11)
--- NOTE | 2017-04-03 12:19 | Event Note ---
Date of Encounter: 04/03/17 Time of Encounter: 12:17 Patient seen and examined with nurse practitioner. Patient has been having fever spikes for 2 days and cough. He has bronchial breathing in the left base. Xray concerning for pneumonia. He has been hospitalized 5 days ago for our tool by femoral bypass. Will treat for hospital acquired pneumonia. Start vancomycin Zosyn. Follow vanc troughs per pharmacy because of DOUG. Check sputum cultures and blood cultures. Patient has also been having diarrhea, check stool for C diff. He has acute kidney injury will hold lisinopril and hydrate.
[2017-04-03] MEDS ORDERED: Ipratropium/Albuterol Neb 3 ML IH PRN (13:01)
--- NOTE | 2017-04-03 13:20 | Internal Medicine Consult Note ---
Date of Encounter: 04/03/17 Time of Encounter: 12:30 - Assessment and Plan (1) HCAP (healthcare-associated pneumonia) Current Visit: Yes Status: Acute Assessment and plan: New onset of HCAP. Pt. has been hospitalized recently for femoropopliteal bypass procedure d/t PAD. Pt. reports feeling poorly starting on Saturday w/ fever, chills, diarrhea, SOB, and cough w/yellow sputum production. Reports similar sx years ago when he was hospitalized for 21 days. CXR today shows overall decreasing interstitial prominence when compared to the previous examination on 03/31/2017, which could be related to some improving interstitial edema. There may be a component of interstitial pneumonitis as well given fever and leukocytosis. Blood cultures x2 ordered. Sputum culture ordered. Legionella and strep pneumoniae antigens ordered. DuoNebs Q6 PRN (will use cautiously d/t previous arrhythmia). Tessalon 100 mg TID for cough. Supplemental O2/SpO2 monitoring. IVPB vancomycin w/pharmacy dosing and Zosyn 3.375 gm Q8 for infection coverage. Will adjust abx as necessary based on culture results. Monitor pt. and f/u labs. Pt. discussed w/Dr. Hodge who is in agreement w/plan of care. Pt. is high risk for further morbidity and/or sepsis based on current HCAP which is currently complicated by his electrolyte imbalance, DOUG, anemia requiring transfusion, and uncontrolled diarrhea. Inpatient. (2) Electrolyte imbalance Current Visit: Yes Status: Acute Assessment and plan: Acute electrolyte imbalance w/sodium of 130, potassium of 2.9, calcium of 7.9, and magnesium or 1.5 in latest labs. Pt. receiving 0.9 NS IV fluids, calcium carbonate 1000 mg Q4, magnesium sulfate 2 gm, and potassium PO 40 mEq once. Monitor pt. and f/u labs for electrolyte correction. (3) DOUG (acute kidney injury) Current Visit: Yes Status: Acute Assessment and plan: Acute kidney injury w/current GFR of 48 and creatinine of 1.46. Pt. receiving gentle 0.9 NS IV fluids. Will avoid nephrotoxins. Monitor I&O and f/u labs. (4) Anemia Current Visit: Yes Status: Acute Assessment and plan: Acute anemia. HGB currently 8.2 and Hct 24.0, down from 16.1 and 48.7 on . Pt. typed and screened and PRBCs ordered. Fecal hemoccult ordered. Monitor H /H. Qualifiers: Anemia type: unspecified type Qualified Code(s): D64.9 - Anemia, unspecified (5) Diarrhea Current Visit: Yes Status: Acute Assessment and plan: Acute diarrhea for the past four days. Pt. denies recent abx use. Stool culture and C. difficile toxin screen ordered. Monitor I&O. Qualifiers: Diarrhea type: unspecified type Qualified Code(s): R19.7 - Diarrhea, unspecified (6) DVT prophylaxis Current Visit: Yes Status: Acute Internal Medicine - CN: HPI - Data of Consult Patient: new to practice Consult date: 04/03/17 Requesting Physician: Maximino Campoverde MD - Consult Narrative Reason for consult: HCAP, electrolyte imbalance, diarrhea, DOUG History of present illness: Mr. Guan is a 66 year old male with medical history of CAD, systolic CHF, CAD , hyperlipidemia, HTN, and degenerative disc disease presents with new sx of HCAP since Saturday. Pt. reports that he began feeling ill on Saturday with fever, chills, and diarrhea. He reports reduced appetite for the past four days , SOB, cough w/yellow sputum production, and pain w/cough. Pt. reports being hospitalized for femoropopliteal bypass five days ago d/t his PAD. Denies recent abx use. Pt. denies nausea, vomiting, headache, changes in vision, unusual bleeding, chest pain, palpitations, numbness, tingling, dizziness, lightheadedness, pre-syncope, or syncope. Past Med Surg Social Fam HX - Past Medical History Source: patient, old records reviewed Medical history: cardiomyopathy, CHF, coronary artery disease, CVA, hyperlipidemia, hypertension, peripheral artery disease, renal disease Psychiatric history: anxiety, depression - Past Surgical History Surgical History: angioplasty/stent - Social History Smoking Status: Current every day smoker Packs per day: 1/2 - 1 PPD Smokeless Tobacco Status: No Alcohol use: rarely Drug use: none Current living situation: Home Activity Level: Independent ambulation Recent Out of Country Travel Within the Last 8 Weeks: No Exposure or Possible Exposure to Illness During Travel: No - Family History Father Race: Family Member Ethnicity: Non- Living Status: Age at : 78 Cause of : CHF Hx Family Cardiac Disorders: Yes (CHF, cardiomegaly) Hx Family Respiratory Disorders: Yes (COPD, Emphysema) Hx Family Endocrine Disorder: Yes (DM) Mother Race: Family Member Ethnicity: Non- Living Status: Age at : 68 Cause of : CHF Hx Family Cardiac Disorders: Yes (CHF) Brother Race: Family Member Ethnicity: Non- Living Status: Still Living Hx Family Cardiac Disorders: Yes (SD) Hx Family Cancer: Yes (Type unknown) Sister Race: Family Member Ethnicity: Non- Living Status: Still Living Hx Family Medical Disorders: No - Constitutional Constitutional: as per HPI, anorexia (For the past four days), chills, fever(s) - EENT Eyes: as per HPI Ears: as per HPI Nose, mouth and throat: as per HPI - Breasts Breasts: as per HPI - Cardiovascular Cardiovascular ROS IM: as per HPI - Respiratory Respiratory: as per HPI, cough, dyspnea, dyspnea on exertion, change in phlegm color, pain with cough - Gastrointestinal Gastrointestinal: as per HPI - Genitourinary Genitourinary ROS male: as per HPI - Musculoskeletal Musculoskeletal ROS IM: as per HPI - Integumentary Integumentary IM: as per HPI - Neurological Neurological ROS: as per HPI - Psychiatric Psychiatric: as per HPI, anxiety, depression - Endocrine Endocrine IM: as per HPI - Hematologic/Lymphatic Hematologic/Lymphatic: as per HPI - Allergic/Immunologic Allergic/Immunologic: as per HPI Internal Medicine - CN: Meds Aspirin 81 mg PO QPM 11/11/14 [History] Atorvastatin [Lipitor] 80 mg PO QPM 11/11/14 [History] Cilostazol [Pletal] 100 mg PO BID 11/11/14 [History] Metoprolol [Lopressor] 80 mg PO BID 11/11/14 [History] Nitroglycerin 0.4 mg SL Q5MIN 11/11/14 [History] Sertraline [Zoloft] 50 mg PO QPM 11/11/14 [History] amLODIPine [Norvasc] 10 mg PO DAILY 11/11/14 [History] Clopidogrel [Plavix] 75 mg PO DAILY 06/28/15 [History] Lisinopril [Zestril] 20 mg PO DAILY 06/28/15 [History] Gabapentin [Neurontin] 300 mg PO DAILY 03/28/17 [History] OxyCODONE/APAP 5/325 [Percocet 5/325 MG] 1 each PO Q6HR PRN #25 tablet 03/29/17 [Rx] 3 Allergy/AdvReac Type Severity Reaction Status Date / Time No Known Allergies Allergy Verified 03/28/17 06:48 Internal Medicine - CN: Exam - Constitutional Vitals: Temp Pulse Resp BP Pulse Ox 98.1 F 99 18 107/57 91 04/03/17 12:00 04/03/17 12:00 04/03/17 12:00 04/03/17 12:00 04/03/17 12:00 General appearance IM: Present: cooperative, A&O X 3, pleasant, no acute distress, obese, answers questions appropriately - Head Head exam: Present: atraumatic, normocephalic - Eye Eye exam: Present: normal appearance, PERRL, conjuntiva pink, sclera anicteric Pupils: Present: normal accommodation, PERRL - ENT ENT exam: Present: normal exam, normal external ear exam - Neck Neck exam general surgery: Present: normal inspection, supple, trachea midline - Respiratory Respiratory exam: Present: decreased breath sounds, wheezes - Cardiovascular Cardiovascular exam IM: Present: RRR, +S1, +S2 - GI/Abdominal GI/Abdominal exam IM: Present: diminished bowel sounds, soft, no peritoneal signs - Rectal Rectal exam: Present: deferred - Additional comments: exam deferred. - Extremities Exam Extremities exam IM: Present: warm, radial pulses palpable and symmetrical - Back Exam Back exam: Present: normal inspection - Neurological Exam Neurological exam: Present: alert, CN II-XII intact, oriented X3, no focal deficits, strengths equal and symetr throughout - Psychiatric Psychiatric exam: Present: normal affect, normal mood - Skin Skin exam IM: Present: dry, intact Internal Medicine - CN: Reslt - Labs CBC & Chem 7: 04/03/17 08:10 04/03/17 08:10 Labs: Short CBC 04/03/17 Range/Units 08:10 WBC 15.5 H D (4.3-11.1) K/mcL Hgb 8.2 L (12.9-16.9) g/dL Hct 24.0 L (37.5-50.1) % Plt Count 147 (140-400) K/mcL Neutrophils # 13.4 H (1.6-8.9) K/mcL BMP 04/03/17 08:10 Sodium 130 L Potassium 2.9 L Chloride 103 Carbon Dioxide 22 L BUN 18 Creatinine 1.46 H Glucose 109 H Calcium 7.9 L - ABG Interpretation ABG results: ABG ABG pH 7.34 pH Units (7.32-7.45) 03/30/17 03:48 ABG pCO2 38 mmHg (35-45) 03/30/17 03:48 ABG pO2 63 mmHg (85-104) L 03/30/17 03:48 ABG O2 Saturation 90 % (95-98) L 03/30/17 03:48 PT/INR, D-dimer PT 10.6 Seconds (9.4-12.1) 03/30/17 03:03 - Impressions Impressions Chest X-Ray 04/02/17 12:06 IMPRESSION: Decreasing interstitial prominence consistent with diminishing pulmonary edema. Small pleural effusions. D/ / 04/02/2017 13:12:01 Som Simmons MD / deanna Interpreting Provider: Som Simmons MD Echocardiogram 04/02/17 12:16 Impressions: LVEF 60-65%. Moderate left ventricular diastolic dysfunction. Normal right ventricular structure and function. Mildly sclerotic aortic valve leaflets. Mild mitral regurgitation. Mild tricuspid regurgitation. Mild pulmonary hypertension by TR gradient. IVC is not well visualized. Left Ventricular Wall Motion: Rest Echo Findings All wall segments showed normal motion. Findings: Study Quality * Technically adequate exam. ECG Findings * Sinus tachycardia with BBB. Left Ventricle * LVEF 60-65%. * Normal LV chamber size, wall thickness and function. * Moderate left ventricular diastolic dysfunction. Right Ventricle * Normal right ventricular structure and function. Left Atrium * Moderately dilated left atrium. Right Atrium * Normal right atrial size. Aortic Valve * No aortic regurgitation. * Aortic valve not well visualized. * Mildly sclerotic aortic valve leaflets. * No aortic stenosis. Mitral Valve * Normal mitral valve structure. * No mitral stenosis. * Mild mitral regurgitation. Tricuspid Valve * Normal tricuspid valve structure. * Mild tricuspid regurgitation. Pulmonic Valve * Pulmonic valve is not well visualized. * No pulmonic stenosis. * No pulmonic regurgitation. Pulmonary Artery * Pulmonary artery not well visualized. Aorta * Not well visualized. Interatrial Septum * Interatrial septum not well evaluated. Pericardium * There is no pericardial effusion present. IVC * The IVC is not well evaluated. Chest X-Ray 04/03/17 10:40 IMPRESSION: Overall decreasing interstitial prominence when compared to the previous examination on 03/31/2017, which could be related to some improving interstitial edema. There may be a component of interstitial pneumonitis as well given fever and leukocytosis. D/ / Mitesh Felix MD / Mitesh Felix MD Interpreting Provider: Mitesh Felix MD - Diagnostic Studies Other Images Additional comments: Impressions Echocardiogram 04/02/17 12:16 Impressions: LVEF 60-65%. Moderate left ventricular diastolic dysfunction. Normal right ventricular structure and function. Mildly sclerotic aortic valve leaflets. Mild mitral regurgitation. Mild tricuspid regurgitation. Mild pulmonary hypertension by TR gradient. IVC is not well visualized. Left Ventricular Wall Motion: Rest Echo Findings All wall segments showed normal motion. Findings: Study Quality * Technically adequate exam. ECG Findings * Sinus tachycardia with BBB. Left Ventricle * LVEF 60-65%. * Normal LV chamber size, wall thickness and function. * Moderate left ventricular diastolic dysfunction. Right Ventricle * Normal right ventricular structure and function. Left Atrium * Moderately dilated left atrium. Right Atrium * Normal right atrial size. Aortic Valve * No aortic regurgitation. * Aortic valve not well visualized. * Mildly sclerotic aortic valve leaflets. * No aortic stenosis. Mitral Valve * Normal mitral valve structure. * No mitral stenosis. * Mild mitral regurgitation. Tricuspid Valve * Normal tricuspid valve structure. * Mild tricuspid regurgitation. Pulmonic Valve * Pulmonic valve is not well visualized. * No pulmonic stenosis. * No pulmonic regurgitation. Pulmonary Artery * Pulmonary artery not well visualized. Aorta * Not well visualized. Interatrial Septum * Interatrial septum not well evaluated. Pericardium * There is no pericardial effusion present. IVC * The IVC is not well evaluated. Chest x-ray Additional comments: Impressions Chest X-Ray 04/03/17 10:40 IMPRESSION: Overall decreasing interstitial prominence when compared to the previous examination on 03/31/2017, which could be related to some improving interstitial edema. There may be a component of interstitial pneumonitis as well given fever and leukocytosis. D/ / Mitesh Felix MD / Mitesh Felix MD Interpreting Provider: Mitesh Felix MD Consult Discharge Plan - Plan Instructions: Oxycodone/Acetaminophen (By mouth) Referrals: Kal Lugo MD [Primary Care Provider] - 04/01/17 9:45 am Maximino Campoverde MD [Partnered Physician] - 05/07/17 1:00 pm Prescriptions: OxyCODONE/APAP 5/325 [Percocet 5/325 MG] 1 each PO Q6HR PRN #25 tablet PRN Reason: postoperative pain
[2017-04-03] MEDS ORDERED: Benzonatate 100 MG CAPSULE PO PRN (13:45)
[2017-04-03] MEDS ORDERED: Vancomycin 1,500 MG in D5% in Water 250 ML IVPB SCH ×2 (14:00)
[2017-04-03] MEDS: 0.9 % Sodium Chloride 1,000 ML IVC SCH (14:25)
[2017-04-03] MEDS ORDERED: 0.9 % Sodium Chloride 250 ML ONE (15:13)
[2017-04-03] MEDS ORDERED: Piperacillin/Tazobactam 3.375 GM in D5% in Water (Mini-Bag+) 100 ML IVPB SCH (16:00)
[2017-04-03] MEDS ORDERED: Furosemide 40 MG/4 ML VIAL IVP ONE (16:03)
[2017-04-03] MEDS ORDERED: Furosemide 40 MG/4 ML VIAL ONE (16:15)
[2017-04-03 17:55] LABS: Hematocrit 24.3 % (37.5-50.1); Hemoglobin 8.4 g/dL (12.9-16.9)
[2017-04-03] MEDS: Aspirin 81 MG TAB.CHEW PO SCH (17:56)
[2017-04-03] MEDS: Piperacillin/Tazobactam 3.375 GM/200 ML BAG IVPB SCH (17:56)
[2017-04-03 18:06] LABS: Magnesium 1.9 mg/dL (1.6-2.6); Potassium 3.3 mEq/L (3.5-5.1)
[2017-04-03 18:51] LABS: Bilirubin,Urine Small (Negative); Blood,Urine Negative (Negative); Clarity,Urine Cloudy (Clear); Color,Urine Dark Yellow (Yellow); Glucose,Urine (UA) Normal (Normal); Ketones,Urine Negative (Negative); Leukocyte Esterase,Urine Trace (Negative); Nitrite,Urine Negative (Negative); Protein,Urine Trace mg/dL (Neg-Trace); Specific Gravity,Urine 1.016 (1.010-1.025); Urobilinogen,Urine Normal (Normal)
[2017-04-03 18:54] LABS: Bacteria,Urine None Seen per hpf (None-Few); Hyaline Casts,Urine Few per lpf (None-Few); Squamous Epithelial Cell,Urine Moderate per lpf (None-Few); WBC,Urine 0-3 per hpf (0-3)
--- NOTE | 2017-04-03 19:56 | Vascular/Endovas Progress Note ---
Date of Encounter: 04/03/17 Time of Encounter: 17:00 - Assessment and plan (1) Atherosclerosis of both lower extremities with rest pain Current Visit: Yes Status: Chronic The patient is postoperative day #6 after an aortobifemoral artery bypass. His incisions are healing well. His feet are warm and pedal signals are present. He ws febrile overnight. Hospitalist consulted regarding possible pneumonia. Qualifiers: Peripheral atherosclerosis artery type: [place] artery Qualified Code(s): I70.223 - Atherosclerosis of [place] arteries of extremities with rest pain, bilateral legs (2) Essential hypertension Current Visit: Yes Status: Chronic (3) Mixed hyperlipidemia Current Visit: Yes Status: Chronic (4) CAD in [place] artery Current Visit: Yes Status: Chronic (5) Acute blood loss anemia Current Visit: Yes Status: Acute The patient has acute expected postoperative blood loss anemia. He is hemodynamically stable without evidence of ongoing blood loss. He received 1 unit of PRBCs today. Heparin held due to anemia. (6) CKD (chronic kidney disease), stage III Current Visit: Yes Status: Chronic The patient has chronic kidney disease stage III. He continues to make urine. Will restart intravenous fluids due to increased creatinine. Recheck labs in am. (7) Tobacco abuse Current Visit: Yes Status: Chronic Will start nicotine patch. Smoking cessation discussed. (8) Moderate protein malnutrition Current Visit: Yes Status: Chronic - Subjective Interval history: The patient reports that he is comfortable. He had a fever overnight. He denies a productive cough. He denies chest pain or shortness of breath. - Physical Examination General: Present: Conversant, No Apparent Distress HEENT: Present: Pupils equal Neck: Absent: JVD Cardiac: Present: Reg Rate and Rhythm Lungs: Present: Normal Breath Sounds Neuro: Present: Alert and responsive, No focal deficits noted Vascular: Present: Normal capillary refill, Pulse, normal, Surgical incisions ( clean and dry without erythema or drainage). Absent: Cyanosis, Edema - VTE Documentation of Mechanical Device: Intermittent pneumatic compression device Results 04/05/17 01:18 04/05/17 01:18 Lab Results, Last 24 hours 04/03/17 04/03/17 04/03/17 08:10 08:10 17:42 WBC 15.5 H D Hgb 8.2 L Hct 24.0 L Plt Count 147 Sodium 130 L Potassium 2.9 L 3.3 L Chloride 103 Carbon Dioxide 22 L BUN 18 Creatinine 1.46 H Glucose 109 H Calcium 7.9 L Magnesium 1.5 L 1.9 04/03/17 17:42 WBC Hgb 8.4 L Hct 24.3 L Plt Count Sodium Potassium Chloride Carbon Dioxide BUN Creatinine Glucose Calcium Magnesium Consult Discharge Plan - Plan Instructions: Oxycodone/Acetaminophen (By mouth) Referrals: Kal Lugo MD [Primary Care Provider] - 04/01/17 9:45 am Maximino Campoverde MD [Partnered Physician] - 05/07/17 1:00 pm Prescriptions: OxyCODONE/APAP 5/325 [Percocet 5/325 MG] 1 each PO Q6HR PRN #25 tablet PRN Reason: postoperative pain
[2017-04-04] MEDS: Piperacillin/Tazobactam 3.375 GM/200 ML BAG IVPB SCH ×3 (00:32→18:04)
[2017-04-04] MEDS: Vancomycin 1,250 MG in D5% in Water 250 ML IVPB SCH ×2 (03:00→15:11)
[2017-04-04] MEDS: Albuterol 2.5 MG/3 ML NEBULIZER IH SCH ×4 (03:52→22:05)
[2017-04-04 05:17] LABS: Basophils % 0.1 %; Eosinophils # 0.1 K/mcL (0.0-0.6); Eosinophils % 0.6 %; Hematocrit 25.3 % (37.5-50.1); Hemoglobin 8.7 g/dL (12.9-16.9); Lymphocytes # 0.5 K/mcL (0.6-4.6); Mean Corpuscular HGB Conc 34.4 g/dL (31.6-35.5); Mean Corpuscular Hemoglobin 31.5 pg (28.0-33.3); Mean Corpuscular Volume 91.7 fL (83.0-100.0); Mean Platelet Volume 9.9 fL (9.4-12.4); Monocytes # 0.8 K/mcL (0.0-1.3); Monocytes % 4.5 %; Neutrophils # 16.1 K/mcL (1.6-8.9); Platelet Count 129 K/mcL (140-400); Red Blood Count 2.76 M/mcL (4.19-5.50); Segmented Neutrophils % 90.8 %
[2017-04-04 05:41] LABS: Calcium 8.1 mg/dL (8.6-10.3); Potassium 3.2 mEq/L (3.5-5.1)
[2017-04-04] MEDS: Gabapentin 300 MG CAPSULE PO SCH (07:57)
[2017-04-04] MEDS: Metoprolol 100 MG TABLET PO SCH ×2 (07:57→20:05)
[2017-04-04] MEDS: Nicotine 21 MG PATCH.TD24 TD SCH (07:57)
[2017-04-04] MEDS: amLODIPine 5 MG TABLET PO SCH (08:07)
[2017-04-04] MEDS: Acetaminophen 325 MG TABLET PO PRN ×2 (11:28→20:05)
[2017-04-04] MEDS: 0.9 % Sodium Chloride 1,000 ML IVC SCH (13:38)
--- NOTE | 2017-04-04 15:49 | Internal Med Progress Note ---
Date of Encounter: 04/04/17 Time of Encounter: 15:45 - Assessment and plan (1) Sepsis Current Visit: Yes Status: Acute Assessment and plan: Patient did developed fever, leukocytosis, tachycardia. His UA is negative for infections. A chest x-ray shows pulmonary edema no significant consolidation. Patient complaining of right upper quadrant pain and diarrhea for over last 3 days. We will check KUB ultrasound for gallbladder at. He is covered with vancomycin and Zosyn for age. Qualifiers: Sepsis type: sepsis due to unspecified organism Qualified Code(s): A41.9 - Sepsis, unspecified organism (2) Acute renal failure (ARF) Current Visit: Yes Status: Acute Assessment and plan: from sepsis and diuresis Qualifiers: Acute renal failure type: unspecified Qualified Code(s): N17.9 - Acute kidney failure, unspecified (3) Elevated troponin Current Visit: Yes Status: Acute Assessment and plan: cardiology was consulted, signed off (4) Electrolyte imbalance Current Visit: Yes Status: Acute Assessment and plan: hyponatremia and hypokalemia, from lasix, will replace by IV (5) Diarrhea Current Visit: Yes Status: Acute Assessment and plan: pending C diff Qualifiers: Diarrhea type: unspecified type Qualified Code(s): R19.7 - Diarrhea, unspecified (6) CHF (congestive heart failure) Current Visit: Yes Status: Chronic Assessment and plan: acute on chronci diastolic CHF improved with lasix Previously had mildly reduced EF 45% on echo in 2013. Rechecked echo and EF has now improved to 60-65%, moderate diastolic dysfunction. CXR yesterday diminishing pulmonary edema O2 down to 2 L. Qualifiers: Congestive heart failure type: diastolic Congestive heart failure chronicity: chronic Qualified Code(s): I50.32 - Chronic diastolic (congestive ) heart failure (7) Essential hypertension Current Visit: Yes Status: Chronic Assessment and plan: contineu home meds (8) CAD in [place] artery Current Visit: Yes Status: Chronic Assessment and plan: [facility] 2013 showed moderate CAD with severe mid distal left circumflex stenosis. Continue ASA, Statin, Plavix, BB, ACEi. (9) Acute blood loss anemia Current Visit: Yes Status: Acute Assessment and plan: from surgery (10) Tobacco abuse Current Visit: Yes Status: Chronic (11) Moderate protein malnutrition Current Visit: Yes Status: Chronic (12) Acute respiratory failure with hypoxia Current Visit: Yes Status: Acute Assessment and plan: patient was on 8 L NC, improved with lasix, O2 down to 2 L NC, will d/c IVF, monitor Cr. - Time Spent With Patient Greater than 35 minutes - Subjective Interval history: Pt. has been hospitalized recently for femoropopliteal bypass procedure d/t PAD. Pt. reports feeling poorly starting on Saturday w/fever, chills, diarrhea, SOB, and cough w/yellow sputum production. CXR today shows overall decreasing interstitial prominence when compared to the previous examination on 03/31/2017 , There may be a component of interstitial pneumonitis as well given fever and leukocytosis. Blood cultures x2 ordered. Sputum culture ordered. Legionella and strep pneumoniae antigens are negative started on IVPB vancomycin w/pharmacy dosing and Zosyn 3.375 gm Q8 for infection coverage. Patient reports that he has been experienced right upper quadrant pain and the nausea vomiting for 3 days, associated was diarrhea. Does have right upper quadrant tenderness by my examination. But he has no stools since last night. I will check right upper quadrant ultrasound and the KUB. There is no strong evidence for age Since the chest x-ray is negative his hypoxia has been significantly improved after IV Lasix chest x-ray and dis showed pulmonary edema. 1. sepsis with fever and leukocytosis, negative UA, CXR dose not suppsort pneumonia, will check RUQ US, KUB, pending C diff - Constitutional Vitals: Temp Pulse Resp BP Pulse Ox 100.0 F H 98 18 108/62 92 04/04/17 15:43 04/04/17 15:43 04/04/17 15:43 04/04/17 15:43 04/04/17 15:43 General appearance: Present: cooperative, A&O X 3, pleasant, no acute distress, obese, answers questions appropriately Exam: CONSTITUTIONAL: patient appears as an age appropriate male in no acute distress. EYES Clear sclerae, bilateral pupils are equal, reactive to light. EMOI. RESPIRATORY: No accessory muscle use, bilateral clear to auscultation, no wheezing, no crackles/rales. CARDIOVASCULAR: Regular heart rate, normal S1 and S2, no murmurs GASTROINTESTINAL: bowel sounds present, soft, RUQ tenderness. MUSCULOSKELETAL: Joints in normal range of motion, no clubbing, ++ edema, no cyanosis. Bilateral peripheral pulses 2+. NEUROLOGIC: CN II to XII are grossly intact, no focal neurological deficit. Internal Medicine: Result - Labs CBC & Chem 7: 04/04/17 04:32 04/04/17 04:32 Labs: Short CBC 04/03/17 04/04/17 Range/Units 17:42 04:32 WBC 17.8 H (4.3-11.1) K/mcL Hgb 8.4 L 8.7 L (12.9-16.9) g/dL Hct 24.3 L 25.3 L (37.5-50.1) % Plt Count 129 L (140-400) K/mcL Neutrophils # 16.1 H (1.6-8.9) K/mcL BMP 04/03/17 04/04/17 17:42 04:32 Sodium 131 L Potassium 3.3 L 3.2 L Chloride 103 Carbon Dioxide 22 L BUN 22 Creatinine 1.57 H Glucose 104 Calcium 8.1 L Urine 04/03/17 Range/Units 18:25 Urine Color Dark Yellow (Yellow) Urine Clarity Cloudy A (Clear) Urine pH 6.0 (5.0-8.0) pH Units Ur Specific [place] 1.016 (1.010-1.025) Urine Protein Trace (Neg-Trace) mg/dL Urine Glucose (UA) Normal (Normal) mg/dL - ABG Interpretation ABG results: ABG ABG pH 7.34 pH Units (7.32-7.45) 03/30/17 03:48 ABG pCO2 38 mmHg (35-45) 03/30/17 03:48 ABG pO2 63 mmHg (85-104) L 03/30/17 03:48 ABG O2 Saturation 90 % (95-98) L 03/30/17 03:48 PT/INR, D-dimer PT 10.6 Seconds (9.4-12.1) 03/30/17 03:03 - VTE Documentation of Mechanical Device: Intermittent pneumatic compression device Consult Discharge Plan - Plan Instructions: Oxycodone/Acetaminophen (By mouth) Referrals: Kal Lugo MD [Primary Care Provider] - 04/01/17 9:45 am Maximino Campoverde MD [Partnered Physician] - 05/07/17 1:00 pm Prescriptions: OxyCODONE/APAP 5/325 [Percocet 5/325 MG] 1 each PO Q6HR PRN #25 tablet PRN Reason: postoperative pain
[2017-04-04] MEDS ORDERED: Potassium Chloride 40 MEQ, Lidocaine 1% 2 ML in D5% in Water 500 ML IVPB ONE (16:05)
--- NOTE | 2017-04-04 17:11 | Vascular/Endovas Progress Note ---
Date of Encounter: 04/04/17 Time of Encounter: 07:05 - Assessment and plan (1) Atherosclerosis of both lower extremities with rest pain Current Visit: Yes Status: Chronic The patient is postoperative day #7 after an aortobifemoral artery bypass. His feet are warm and pedal signals are present. He will continue with a regular diet. Continue with nutritional shakes. Qualifiers: Peripheral atherosclerosis artery type: [place] artery Qualified Code(s): I70.223 - Atherosclerosis of [place] arteries of extremities with rest pain, bilateral legs (2) Essential hypertension Current Visit: Yes Status: Chronic (3) Mixed hyperlipidemia Current Visit: Yes Status: Chronic (4) CAD in [place] artery Current Visit: Yes Status: Chronic (5) Acute blood loss anemia Current Visit: Yes Status: Acute The patient received 1 unit PRBCs yesterday. His Hgb has increased. He is hemodynamically stable without ongoing blood loss. Resume heparin for DVT prophylaxis. (6) CKD (chronic kidney disease), stage III Current Visit: Yes Status: Chronic The patient has chronic kidney disease stage III. He continues to make urine. Continue with IV hydration. Recheck labs in am. (7) Tobacco abuse Current Visit: Yes Status: Chronic (8) Moderate protein malnutrition Current Visit: Yes Status: Chronic Continue with nutritional shakes. - Subjective Interval history: He is comfortable today. Tolerating a diet. No fever overnight. He denies any shortness of breath. Vital Signs, Last 4 Hours Temp Pulse Resp BP Pulse Ox 04/04/17 16:22 18 90 04/04/17 15:43 100.0 F H 98 18 108/62 92 04/04/17 15:15 98.7 F 99 20 114/63 92 - Physical Examination General: Present: Conversant, No Apparent Distress HEENT: Present: Pupils equal Neck: Absent: JVD Cardiac: Present: Reg Rate and Rhythm Lungs: Present: Normal Breath Sounds Neuro: Present: Alert and responsive, No focal deficits noted Vascular: Present: Normal capillary refill, Pulse, normal (pedal signals present ), Surgical incisions (clean, dry and intact). Absent: Cyanosis Abdomen: Present: Soft. Absent: Masses - VTE Documentation of Mechanical Device: Intermittent pneumatic compression device Results 04/04/17 04:32 04/04/17 04:32 Lab Results, Last 24 hours 04/03/17 04/03/17 04/04/17 17:42 17:42 04:32 WBC 17.8 H Hgb 8.4 L 8.7 L Hct 24.3 L 25.3 L Plt Count 129 L Sodium Potassium 3.3 L Chloride Carbon Dioxide BUN Creatinine Glucose Calcium Magnesium 1.9 04/04/17 04:32 WBC Hgb Hct Plt Count Sodium 131 L Potassium 3.2 L Chloride 103 Carbon Dioxide 22 L BUN 22 Creatinine 1.57 H Glucose 104 Calcium 8.1 L Magnesium 2.0 Consult Discharge Plan - Plan Instructions: Oxycodone/Acetaminophen (By mouth) Referrals: Kal Lugo MD [Primary Care Provider] - 04/01/17 9:45 am Maximino Campoverde MD [Partnered Physician] - 05/07/17 1:00 pm Prescriptions: OxyCODONE/APAP 5/325 [Percocet 5/325 MG] 1 each PO Q6HR PRN #25 tablet PRN Reason: postoperative pain
[2017-04-04] MEDS: Aspirin 81 MG TAB.CHEW PO SCH (18:05)
[2017-04-04] MEDS: *HR* Heparin 5,000 UNIT/ML VIAL SQ SCH (18:15)
[2017-04-05 01:40] LABS: Basophils % 0.1 %; Eosinophils # 0.3 K/mcL (0.0-0.6); Eosinophils % 1.3 %; Hematocrit 22.9 % (37.5-50.1); Immature Granulocytes % 1.6 % (0-4); Lymphocytes # 0.9 K/mcL (0.6-4.6); Lymphocytes % 4.6 %; Mean Corpuscular HGB Conc 34.9 g/dL (31.6-35.5); Mean Corpuscular Hemoglobin 31.3 pg (28.0-33.3); Mean Corpuscular Volume 89.5 fL (83.0-100.0); Mean Platelet Volume 9.9 fL (9.4-12.4); Monocytes # 1.3 K/mcL (0.0-1.3); Monocytes % 6.7 %; Neutrophils # 16.6 K/mcL (1.6-8.9); Nucleated Red Blood Cells 0.2 /100 WBC (0); Platelet Count 147 K/mcL (140-400); Red Blood Count 2.56 M/mcL (4.19-5.50); Red Cell Distribution Width 13.8 % (11.5-14.5); Segmented Neutrophils % 85.7 %
[2017-04-05 02:02] LABS: Albumin 2.3 g/dL (3.5-5.7); Bilirubin,Direct 0.6 mg/dL (0.0-0.2); Bilirubin,Indirect 0.7 mg/dL (0.0-1.2); Bilirubin,Total 1.3 mg/dL (0.3-1.0); Globulin 2.3 g/dL (2.4-3.5); Magnesium 1.9 mg/dL (1.6-2.6); Total Protein 4.6 g/dL (6.4-8.9)
[2017-04-05 02:04] LABS: Potassium 3.4 mEq/L (3.5-5.1)
[2017-04-05] MEDS: Piperacillin/Tazobactam 3.375 GM/200 ML BAG IVPB SCH ×3 (02:51→16:03)
[2017-04-05] MEDS: Vancomycin 1,250 MG in D5% in Water 250 ML IVPB SCH (02:52)
[2017-04-05] MEDS: Albuterol 2.5 MG/3 ML NEBULIZER IH SCH ×4 (03:35→22:35)
[2017-04-05] MEDS: *HR* Heparin 5,000 UNIT/ML VIAL SQ SCH ×2 (06:26→20:34)
--- NOTE | 2017-04-05 07:34 | Electrocardiograph Report ---
[facility] Test Date: 2017-04-03 Pat Name: Rony Guan Department: 110 Room: 2N09 Gender: M [employer] Specialist: JULIO : 1950 Requested By: Charly Dave Order Number: [id number] Reading MD: Tory Qiu DO Measurements Intervals [place] Rate: 131 P: [place]: 0 QRS: -61 QRSD: 161 T: 52 QT: 350 QTc: 427 Interpretive Statements ATRIAL FLUTTER/TACHYCARDIA WITH RAPID VENTRICULAR RESPONSE RIGHT BUNDLE BRANCH BLOCK LEFT ANTERIOR FASCICULAR BLOCK SEPTAL MYOCARDIAL INFARCTION, OF INDETERMINATE AGE Electronically Signed On 04-05-2017 7:32:59 EST by Tory Qiu DO
[2017-04-05] MEDS: Nicotine 21 MG PATCH.TD24 TD SCH ×2 (08:07→16:04)
[2017-04-05] MEDS: Gabapentin 300 MG CAPSULE PO SCH (08:07)
[2017-04-05] MEDS: Metoprolol 100 MG TABLET PO SCH ×2 (08:07→20:34)
--- NOTE | 2017-04-05 10:08 | Internal Med Progress Note ---
Date of Encounter: 04/05/17 Time of Encounter: 10:06 - Assessment and plan (1) Sepsis Current Visit: Yes Status: Acute Assessment and plan: Patient did developed fever, leukocytosis, tachycardia. His UA is negative for infections. A chest x-ray shows pulmonary edema no significant consolidation. Patient complaining of right upper quadrant pain and diarrhea for over last 3 days. . He is covered with vancomycin and Zosyn Pending ultrasound and a KUB Persistent leukocytosis we will continue antibiotics Qualifiers: Sepsis type: sepsis due to unspecified organism Qualified Code(s): A41.9 - Sepsis, unspecified organism (2) Acute renal failure (ARF) Current Visit: Yes Status: Acute Assessment and plan: from sepsis and diuresis We will continue to monitor Qualifiers: Acute renal failure type: unspecified Qualified Code(s): N17.9 - Acute kidney failure, unspecified (3) Elevated troponin Current Visit: Yes Status: Acute Assessment and plan: cardiology was consulted, signed off (4) Electrolyte imbalance Current Visit: Yes Status: Acute Assessment and plan: hyponatremia, will give IVF at 75 ml, check urine OSmo and sodium (5) Diarrhea Current Visit: Yes Status: Acute Assessment and plan: resolved Qualifiers: Diarrhea type: unspecified type Qualified Code(s): R19.7 - Diarrhea, unspecified (6) CHF (congestive heart failure) Current Visit: Yes Status: Chronic Assessment and plan: acute on chronci diastolic CHF improved with lasix Previously had mildly reduced EF 45% on echo in 2013. Rechecked echo and EF has now improved to 60-65%, moderate diastolic dysfunction. O2 down to 2 L. Qualifiers: Congestive heart failure type: diastolic Congestive heart failure chronicity: chronic Qualified Code(s): I50.32 - Chronic diastolic (congestive ) heart failure (7) Essential hypertension Current Visit: Yes Status: Chronic Assessment and plan: contineu home meds (8) CAD in [place] artery Current Visit: Yes Status: Chronic Assessment and plan: [facility] 2013 showed moderate CAD with severe mid distal left circumflex stenosis. Continue ASA, Statin, Plavix, BB, ACEi. (9) Acute blood loss anemia Current Visit: Yes Status: Acute Assessment and plan: from surgery (10) Tobacco abuse Current Visit: Yes Status: Chronic (11) Moderate protein malnutrition Current Visit: Yes Status: Chronic (12) Acute respiratory failure with hypoxia Current Visit: Yes Status: Acute Assessment and plan: patient was on 8 L NC, improved with lasix, O2 down to 2 L NC. - Time Spent With Patient 25 - 35 minutes - Subjective Interval history: Pt. has been hospitalized recently for femoropopliteal bypass procedure d/t PAD. Pt. reports feeling poorly starting on Saturday w/fever, chills, diarrhea, SOB, and cough w/yellow sputum production. CXR today shows overall decreasing interstitial prominence when compared to the previous examination on 03/31/2017 , There may be a component of interstitial pneumonitis as well given fever and leukocytosis. Blood cultures x2 ordered. Sputum culture ordered. Legionella and strep pneumoniae antigens are negative started on IVPB vancomycin w/pharmacy dosing and Zosyn 3.375 gm Q8 for infection coverage. Patient reports that he has been experienced right upper quadrant pain and the nausea vomiting for 3 days, associated was diarrhea. Does have right upper quadrant tenderness by my examination. But he has no stools since last night. I will check right upper quadrant ultrasound and the KUB. There is no strong evidence for age Since the chest x-ray is negative his hypoxia has been significantly improved after IV Lasix chest x-ray and dis showed pulmonary edema. 1. sepsis with fever and leukocytosis, negative UA, CXR dose not support pneumonia, will check RUQ US, KUB, Patient is doing better, MAXIMUM TEMPERATURE 99 degree, he persistent has nausea and dry heaves, pending ultrasound and a KUB. Persistent leukocytosis, we will continue antibiotics. - Constitutional Vitals: Temp Pulse Resp BP Pulse Ox 99 F 109 28 136/69 90 04/05/17 06:46 04/05/17 06:46 04/05/17 06:46 04/05/17 06:46 04/05/17 06:46 General appearance: Present: cooperative, A&O X 3, pleasant, no acute distress, obese, answers questions appropriately Exam: CONSTITUTIONAL: patient appears as an age appropriate male in no acute distress. EYES Clear sclerae, bilateral pupils are equal, reactive to light. EMOI. RESPIRATORY: No accessory muscle use, bilateral clear to auscultation, no wheezing, no crackles/rales. CARDIOVASCULAR: Regular heart rate, normal S1 and S2, no murmurs GASTROINTESTINAL: bowel sounds present, soft, right upper quadrant tenderness. MUSCULOSKELETAL: Joints in normal range of motion, no clubbing, no edema, no cyanosis. Bilateral peripheral pulses 2+. NEUROLOGIC: CN II to XII are grossly intact, no focal neurological deficit. Internal Medicine: Result - Labs CBC & Chem 7: 04/05/17 01:18 04/05/17 01:18 Labs: Short CBC 04/05/17 Range/Units 01:18 WBC 19.3 H (4.3-11.1) K/mcL Hgb 8.0 L (12.9-16.9) g/dL Hct 22.9 L (37.5-50.1) % Plt Count 147 (140-400) K/mcL Neutrophils # 16.6 H (1.6-8.9) K/mcL BMP 04/05/17 01:18 Sodium 128 L Potassium 3.4 L Chloride 102 Carbon Dioxide 22 L BUN 25 H Creatinine 1.57 H Glucose 103 Calcium 8.0 L Liver Function 04/05/17 Range/Units 01:18 Total Bilirubin 1.3 H (0.3-1.0) mg/dL Direct Bilirubin 0.6 H (0.0-0.2) mg/dL AST 41 H (13-39) Units/L ALT 35 (7-52) Units/L Alkaline Phosphatase 103 (34-104) Units/L Albumin 2.3 L (3.5-5.7) g/dL - ABG Interpretation ABG results: ABG ABG pH 7.34 pH Units (7.32-7.45) 03/30/17 03:48 ABG pCO2 38 mmHg (35-45) 03/30/17 03:48 ABG pO2 63 mmHg (85-104) L 03/30/17 03:48 ABG O2 Saturation 90 % (95-98) L 03/30/17 03:48 PT/INR, D-dimer PT 10.6 Seconds (9.4-12.1) 03/30/17 03:03 - VTE Documentation of Mechanical Device: Intermittent pneumatic compression device Consult Discharge Plan - Plan Instructions: Oxycodone/Acetaminophen (By mouth) Referrals: Kal Lugo MD [Primary Care Provider] - 04/01/17 9:45 am Maximino Campoverde MD [Partnered Physician] - 05/07/17 1:00 pm Prescriptions: OxyCODONE/APAP 5/325 [Percocet 5/325 MG] 1 each PO Q6HR PRN #25 tablet PRN Reason: postoperative pain
--- NOTE | 2017-04-05 10:47 | Vascular/Endovas Progress Note ---
Date of Encounter: 04/05/17 Time of Encounter: 07:40 - Assessment and plan (1) Atherosclerosis of both lower extremities with rest pain Current Visit: Yes Status: Chronic The patient is postoperative day #8 after an aortobifemoral artery bypass. His incisions are healing well. His feet are warm and pedal signals are present. He has right upper quadrant pain due to possible cholecystitis. Qualifiers: Peripheral atherosclerosis artery type: [place] artery Qualified Code(s): I70.223 - Atherosclerosis of [place] arteries of extremities with rest pain, bilateral legs (2) Essential hypertension Current Visit: Yes Status: Chronic (3) Mixed hyperlipidemia Current Visit: Yes Status: Chronic (4) CAD in [place] artery Current Visit: Yes Status: Chronic (5) Acute blood loss anemia Current Visit: Yes Status: Acute The patient has acute expected postoperative blood loss anemia. He is hemodynamically stable without evidence of ongoing blood loss. (6) CKD (chronic kidney disease), stage III Current Visit: Yes Status: Chronic (7) Tobacco abuse Current Visit: Yes Status: Chronic (8) Moderate protein malnutrition Current Visit: Yes Status: Chronic - Subjective Interval history: The patient has been tolerating a diet, however, he is complaining of right upper quadrant pain. He denies nausea or vomiting. He denies chest pain or shortness of breath. Vital Signs, Last 4 Hours Resp Pulse Ox 04/05/17 10:15 20 91 - Physical Examination General: Present: Conversant Cardiac: Present: Reg Rate and Rhythm Lungs: Present: Normal Breath Sounds Neuro: Present: Alert and responsive, No focal deficits noted Vascular: Present: Normal capillary refill, Surgical incisions (incisions clean , dry and intact without erythema or drainage). Absent: Cyanosis, Edema Abdomen: Present: Soft, Other (right upper quadrant tenderness, no rebound, no guarding, bowel sounds present, no distension) Skin: Present: No rashes noted on visualized skin - VTE Documentation of Mechanical Device: Intermittent pneumatic compression device Results 04/09/17 05:33 04/09/17 05:33 Lab Results, Last 24 hours 04/05/17 04/05/17 04/05/17 01:18 01:18 01:18 WBC 19.3 H Hgb 8.0 L Hct 22.9 L Plt Count 147 Sodium 128 L Potassium 3.4 L Chloride 102 Carbon Dioxide 22 L BUN 25 H Creatinine 1.57 H Glucose 103 Calcium 8.0 L Magnesium 1.9 Total Bilirubin 1.3 H AST 41 H ALT 35 Alkaline Phosphatase 103 Consult Discharge Plan - Plan Instructions: Oxycodone/Acetaminophen (By mouth) Referrals: Kal Lugo MD [Primary Care Provider] - 04/15/17 1:15 pm Sy Bryan MD [Partnered Physician] - 05/06/17 3:35 pm Maximino Campoverde MD [Partnered Physician] - 05/07/17 1:00 pm Prescriptions: OxyCODONE/APAP 5/325 [Percocet 5/325 MG] 1 each PO Q6HR PRN #25 tablet PRN Reason: postoperative pain
[2017-04-05] MEDS: amLODIPine 5 MG TABLET PO SCH (11:22)
[2017-04-05] MEDS: *HR* Morphine 2 MG/ML SYRINGE IVP PRN (14:28)
[2017-04-05] MEDS: Vancomycin 1,000 MG in D5% in Water 250 ML IVPB SCH (16:04)
[2017-04-05] MEDS: 0.9 % Sodium Chloride 1,000 ML IVC SCH (16:13)
--- NOTE | 2017-04-05 17:24 | General Surgery Consult Note ---
<Keyla Thayer - Last Filed: 04/05/17 19:15> Date of Encounter: 04/05/17 Time of Encounter: 17:23 Assessment and Plan (1) Acute calculous cholecystitis Current Visit: Yes Status: Acute 66 y M s/p postoperative day #6 an aortobifemoral artery bypass 2/2 PAD presenting with RUQ abdominal pain x3 days with history of previous attacks of biliary colic nature, positive for Mullins's sign on PE with U/S demonstrating significant sludge and gallbladder wall thickening measuring 7 mm, and HIDA scan concerning for acute cholecystitis -Labs: demonstrating leukocytosis. Mild elevations in serum aminotransferases, with direct bilirubin 0.6, total bilirubin 1.3. -Currently afebrile, but noted to have intermittent elevated temp since 04/02/16. -Pt meets ASA III-IV classification, due to cardiac history and thus has a high perioperative mortality risk rate and based on patient's current clinical status risk of cholecystectomy likely outweighs the potential benefit -However, patient not improving with supportive care and may likely require gallbladder drainage with percutaneous cholecystostomy. --Continue Zosyn -Recommend continued intravenous fluid therapy, correction of electrolyte disorders, and continued control of pain -NPO diet ordered. (2) Atherosclerosis with claudication of extremity Current Visit: No Status: Chronic s/p postoperative day #6 an aortobifemoral artery bypass 2/2 PAD. Management per endovascular service. (3) DOUG (acute kidney injury) Current Visit: Yes Status: Acute Elevated Creatinine. Continuos monitoring with BMPs in AM. Management per primary team. (4) Anemia Current Visit: Yes Status: Acute Hgb 8. s/p 1 pRBC. Management alongside primary and endovascular service. Qualifiers: Anemia type: unspecified type Qualified Code(s): D64.9 - Anemia, unspecified (5) CKD (chronic kidney disease), stage III Current Visit: Yes Status: Chronic Management per primary team. (6) Essential hypertension Current Visit: Yes Status: Chronic Reviewed BPs. Management per primary team. (7) Moderate protein malnutrition Current Visit: Yes Status: Chronic Management per primary team. (8) DVT prophylaxis Current Visit: Yes Status: Acute Management per primary team. (9) Tobacco abuse Current Visit: Yes Status: Chronic Management per primary team. History of Present Illness Consult date: 04/05/17 Reason for consult: abdominal pain Requesting physician: Charly Dave History of present illness: Mr. Guan is a 66 year old male with PMH of CAD, systolic CHF, HTN, CKD stage 3, tobacco abuse, PVD that is post op day #6 s/p aortobifemoral bypass graft. He reports complaints of RUQ abdominal pain x 3 days, following a meal. Onset: sudden. Quality: constant. Rates pain at a 7/10. Associated symptoms: Endorses Nausea. Denies emesis, however dry heaved this morning. Pain does not radiate to scapula. fatigue. He states he has experienced similar pain for 5 years intermittently. The abdominal pain was evaluated by U/S and subsequently by HIDA scan today. Surgery was placed on consult following results of HIDA scan. Prior CV testing: Pharmacologic nuclear stress test 03/21/15: Perfusion imaging negative for ischemia or infarct. Gated EF 50%. C 08/20/2013 Impressions:There is moderate CAD with severe mid distal left circumflex stenosis; The left ventricle is normal and has low normal contractility EF 50% Severe PAD with long left common iliac occlusion and right SFA occlusion. Echo 08/13/2013 Impressions:LVEF 45%; mid and basal inferior lateral hypokinesis. Normal LV size and wall thickness. Mild diastolic dysfunction. Normal left atrial size. Normal right ventricular size and function.Normal right atrial size. Mild mitral regurgitation. Mildly sclerotic trileaflet aortic valve without stenosis. Estimated RVSP was 27 mmHg. No pulmonary hypertension.The IVC is not dilated. Past Med Surg Social Fam HX - Past Medical History Medical history: cardiomyopathy, CHF, coronary artery disease, CVA, hyperlipidemia, hypertension, peripheral artery disease, renal disease Psychiatric history: anxiety, depression - Past Surgical History Surgical History: angioplasty/stent - Social History Smoking Status: Current every day smoker Packs per day: 1/2 - 1 PPD Smokeless Tobacco Status: No Alcohol use: rarely Drug use: none - Family History Brother Race: Family Member Ethnicity: Non- Living Status: Still Living Hx Family Cardiac Disorders: Yes (MT) Hx Family Cancer: Yes (Type unknown) Sister Race: Family Member Ethnicity: Non- Living Status: Still Living Hx Family Medical Disorders: No Father Race: Family Member Ethnicity: Non- Living Status: Age at : 78 Cause of : CHF Hx Family Cardiac Disorders: Yes (CHF, cardiomegaly) Hx Family Respiratory Disorders: Yes (COPD, Emphysema) Hx Family Endocrine Disorder: Yes (DM) Mother Race: Family Member Ethnicity: Non- Living Status: Age at : 68 Cause of : CHF Hx Family Cardiac Disorders: Yes (CHF) Hx Family Endocrine Disorder: Yes (DM) Medications and Allergies Aspirin 81 mg PO QPM 11/11/14 [History] Atorvastatin [Lipitor] 80 mg PO QPM 11/11/14 [History] Cilostazol [Pletal] 100 mg PO BID 11/11/14 [History] Metoprolol [Lopressor] 80 mg PO BID 11/11/14 [History] Nitroglycerin 0.4 mg SL Q5MIN 11/11/14 [History] Sertraline [Zoloft] 50 mg PO QPM 11/11/14 [History] amLODIPine [Norvasc] 10 mg PO DAILY 11/11/14 [History] Clopidogrel [Plavix] 75 mg PO DAILY 06/28/15 [History] Lisinopril [Zestril] 20 mg PO DAILY 06/28/15 [History] Gabapentin [Neurontin] 300 mg PO DAILY 03/28/17 [History] OxyCODONE/APAP 5/325 [Percocet 5/325 MG] 1 each PO Q6HR PRN #25 tablet 03/29/17 [Rx] 3 Allergy/AdvReac Type Severity Reaction Status Date / Time No Known Allergies Allergy Verified 03/28/17 06:48 Review of Systems All systems PM: As documented above in the HPI. - Constitutional as per HPI General Surgery Exam Initial Vital Signs Temp Pulse Resp BP Pulse Ox 98.5 F 86 18 123/79 96 03/28/17 06:28 03/28/17 06:28 03/28/17 06:28 03/28/17 06:28 03/28/17 06:28 - General physical appearance moderate pain - Eyes normal ocular movement - Respiratory normal expansion, clear to percussion, clear to auscultation - Cardiovascular Cardiovascular exam: Present: tachycardia. Absent: irregular rhythm - Abdomen Abdomen general surgery: Present: bowel sounds present, soft, tender ( inspiratory arrest during deep palpation of the RUQ ) Exam Initial Vital Signs Temp Pulse Resp BP Pulse Ox 98.5 F 86 18 123/79 96 03/28/17 06:28 03/28/17 06:28 03/28/17 06:28 03/28/17 06:28 03/28/17 06:28 Results - Labs 04/05/17 01:18 04/05/17 01:18 Abnormal lab results WBC 19.3 K/mcL (4.3-11.1) H 04/05/17 01:18 RBC 2.56 M/mcL (4.19-5.50) L 04/05/17 01:18 Hgb 8.0 g/dL (12.9-16.9) L 04/05/17 01:18 Hct 22.9 % (37.5-50.1) L 04/05/17 01:18 Neutrophils # 16.6 K/mcL (1.6-8.9) H 04/05/17 01:18 Nucleated RBCs/100 WBC 0.2 /100 WBC (0) H 04/05/17 01:18 APTT 25.9 Seconds (26.0-36.0) L 03/28/17 16:30 ABG pO2 63 mmHg (85-104) L 03/30/17 03:48 ABG O2 Saturation 90 % (95-98) L 03/30/17 03:48 ABG Base Excess -5 mEq/L (-2 to 3) L 03/30/17 03:48 ABG Hematocrit 34.0 % (37.5-50.1) L 03/28/17 15:08 ABG Chloride 108 mEq/L (98-107) H 03/28/17 15:08 Glucose 215 mg/dL (60-95) H 03/28/17 15:08 Sodium 128 mEq/L (136-145) L 04/05/17 01:18 Potassium 3.4 mEq/L (3.5-5.1) L 04/05/17 01:18 Carbon Dioxide 22 mEq/L (23-29) L 04/05/17 01:18 BUN 25 mg/dL (8-23) H 04/05/17 01:18 Creatinine 1.57 mg/dL (0.70-1.30) H 04/05/17 01:18 Est GFR ( Amer) 54 (> 60) L 04/05/17 01:18 Est GFR (Non-Af Amer) 45 (> 60) L 04/05/17 01:18 POC Glucose 98 (58-89) H 03/31/17 12:10 Calculated Osmolality 271 (280-300) L 04/05/17 01:18 Calcium 8.0 mg/dL (8.6-10.3) L 04/05/17 01:18 Total Bilirubin 1.3 mg/dL (0.3-1.0) H 04/05/17 01:18 Direct Bilirubin 0.6 mg/dL (0.0-0.2) H 04/05/17 01:18 AST 41 Units/L (13-39) H 04/05/17:18 Troponin I 0.08 ng/mL (< 0.04) H* 04/02/17 07:51 Serum Total Protein 4.6 g/dL (6.4-8.9) L 04/05/17 01:18 Albumin 2.3 g/dL (3.5-5.7) L 04/05/17 01:18 Globulin 2.3 g/dL (2.4-3.5) L 04/05/17 01:18 Albumin/Globulin Ratio 1.0 (1.1-2.2) L 04/05/17 01:18 Arterial Blood Ionized Calcium 1.39 mmol/L (1.15-1.35) H 03/28/17 15:08 Urine Clarity Cloudy (Clear) A 04/03/17 18:25 Urine Bilirubin Small (Negative) H 04/03/17 18:25 Ur Leukocyte Esterase Trace (Negative) H 04/03/17 18:25 Urine Microscopic RBC 3-5 per hpf (0-3) H 04/03/17 18:25 Ur Squamous Epith Cells Moderate per lpf (None-Few) H 04/03/17 18:25 Ur Culture Indicated? YES (NO) A 04/03/17 18:25 Diabetes panel 04/05/17 04/05/17 Range/Units : 01:18 Sodium 128 L (136-145) mEq/L Potassium 3.4 L (3.5-5.1) mEq/L Chloride 102 (98-107) mEq/L Carbon Dioxide 22 L (23-29) mEq/L BUN 25 H (8-23) mg/dL Creatinine 1.57 H (0.70-1.30) mg/dL Glucose 103 (70-105) mg/dL Calcium 8.0 L (8.6-10.3) mg/dL AST 41 H (13-39) Units/L ALT 35 (7-52) Units/L Alkaline Phosphatase 103 (34-104) Units/L Albumin 2.3 L (3.5-5.7) g/dL Calcium panel 04/05/17 04/05/17 Range/Units : 01:18 Calcium 8.0 L (8.6-10.3) mg/dL Albumin 2.3 L (3.5-5.7) g/dL Pituitary panel 04/05/17 Range/Units 01:18 Sodium 128 L (136-145) mEq/L Potassium 3.4 L (3.5-5.1) mEq/L Chloride 102 (98-107) mEq/L Carbon Dioxide 22 L (23-29) mEq/L BUN 25 H (8-23) mg/dL Creatinine 1.57 H (0.70-1.30) mg/dL Glucose 103 (70-105) mg/dL Calcium 8.0 L (8.6-10.3) mg/dL Adrenal panel 04/05/17 04/05/17 Range/Units : 01:18 Sodium 128 L (136-145) mEq/L Potassium 3.4 L (3.5-5.1) mEq/L Chloride 102 (98-107) mEq/L Carbon Dioxide 22 L (23-29) mEq/L BUN 25 H (8-23) mg/dL Creatinine 1.57 H (0.70-1.30) mg/dL Glucose 103 (70-105) mg/dL Calcium 8.0 L (8.6-10.3) mg/dL Total Bilirubin 1.3 H (0.3-1.0) mg/dL AST 41 H (13-39) Units/L ALT 35 (7-52) Units/L Alkaline Phosphatase 103 (34-104) Units/L Albumin 2.3 L (3.5-5.7) g/dL All other labs normal. - Imaging Abdominal x-ray: report reviewed US - abdomen: report reviewed Additional studies: EXAMINATION: RIGHT UPPER QUADRANT ULTRASOUND 04/05/2017 10:59 am COMPARISON: CT on 02/18/2017 HISTORY: Right upper quadrant pain for 3 days. Patient had aortic surgery 1 week ago. FINDINGS: LIVER: The liver appears unremarkable although there is limited visualization of the left lobe. No intrahepatic biliary ductal dilatation. BILIARY SYSTEM: Gallbladder contains significant sludge and demonstrates wall thickening measuring 7 mm. Negative sonographic Mullins's sign. Common bile duct is within normal limits measuring 3 mm. RIGHT KIDNEY: The right kidney is grossly unremarkable without evidence of hydronephrosis. PANCREAS: Not well visualized. OTHER: No ascites seen. US/US abdomen limited IMPRESSION: Significant sludge within the gallbladder along with mild to moderate gallbladder wall thickening. However sonographic Mullins's sign is absent. If there is still concern for acute cholecystitis, a HIDA scan can be performed for further evaluation. D/ / Weston Bailey MD / Weston Bailey MD Interpreting Provider: Weston Bailey MD INATION: NUCLEAR MEDICINE HEPATOBILIARY SCINTIGRAPHY (HIDA SCAN). 04/05/2017 3:34 pm TECHNIQUE: Approximately 5.2 [id number] Mebrofenin (Choletec) was administered IV. Then, dynamic images of the abdomen were obtained in the anterior projection for 60 mins. A right lateral view was also obtained at 60 mins. Due to non-visualization of the gallbladder at 1 hour, 2 mg of morphine was administered IV by nursing staff. Additional anterior images were obtained for 60 mins. COMPARISON: Ultrasound 04/05/2017 HISTORY: ORDERING SYSTEM PROVIDED HISTORY: RUQ pain FINDINGS: Prompt, homogenous uptake by the liver is noted with normal appearance of radiotracer excretion into the biliary system. Clearance of bloodpool activity appears appropriate. Normal small bowel activity is seen. No gallbladder filling is seen after morphine administration. NM/NM hepatobiliary IMPRESSION: 1. Absent visualization of the gallbladder after morphine administration consistent with cystic duct obstruction/acute cholecystitis. D/ / Angelo Vila MD / Angelo Vila MD Interpreting Provider: Angelo Vila MD Impressions Chest X-Ray 03/30/17 03:00 IMPRESSION: Mild interstitial edema. Basilar opacities favored to reflect atelectasis in the setting of low lung volumes, however pneumonia or aspiration could be present in the appropriate clinical context. D/ / Lucius Rivera / Lucius Rivera Interpreting Provider: Lucius Rivera Chest X-Ray 03/31/17 04:00 IMPRESSION: Progressing vascular interstitial pattern. Correlate clinical evidence of vascular congestion. D/ / 03/31/2017 07:11:26 Estiven Mathew MD / [facility] Interpreting Provider: Estiven Mathew MD Chest X-Ray 04/02/17 12:06 IMPRESSION: Decreasing interstitial prominence consistent with diminishing pulmonary edema. Small pleural effusions. D/ / 04/02/2017 13:12:01 Som Simmons MD / [facility] Interpreting Provider: Som Simmons MD Echocardiogram 04/02/17 12:16 Impressions: LVEF 60-65%. Moderate left ventricular diastolic dysfunction. Normal right ventricular structure and function. Mildly sclerotic aortic valve leaflets. Mild mitral regurgitation. Mild tricuspid regurgitation. Mild pulmonary hypertension by TR gradient. IVC is not well visualized. Left Ventricular Wall Motion: Rest Echo Findings All wall segments showed normal motion. Findings: Study Quality * Technically adequate exam. ECG Findings * Sinus tachycardia with BBB. Left Ventricle * LVEF 60-65%. * Normal LV chamber size, wall thickness and function. * Moderate left ventricular diastolic dysfunction. Right Ventricle * Normal right ventricular structure and function. Left Atrium * Moderately dilated left atrium. Right Atrium * Normal right atrial size. Aortic Valve * No aortic regurgitation. * Aortic valve not well visualized. * Mildly sclerotic aortic valve leaflets. * No aortic stenosis. Mitral Valve * Normal mitral valve structure. * No mitral stenosis. * Mild mitral regurgitation. Tricuspid Valve * Normal tricuspid valve structure. * Mild tricuspid regurgitation. Pulmonic Valve * Pulmonic valve is not well visualized. * No pulmonic stenosis. * No pulmonic regurgitation. Pulmonary Artery * Pulmonary artery not well visualized. Aorta * Not well visualized. Interatrial Septum * Interatrial septum not well evaluated. Pericardium * There is no pericardial effusion present. IVC * The IVC is not well evaluated. Chest X-Ray 04/03/17 10:40 IMPRESSION: Overall decreasing interstitial prominence when compared to the previous examination on 03/31/2017, which could be related to some improving interstitial edema. There may be a component of interstitial pneumonitis as well given fever and leukocytosis. D/ / Mitesh Felix MD / Mitesh Felix MD Interpreting Provider: Mitesh Felix MD X-Ray 04/05/17 08:00 IMPRESSION: Mildly dilated loops of small bowel may indicate ileus or obstruction. D/ / Jared Bacon MD / Jared Bacon MD Interpreting Provider: Jared Bacon MD Abdomen Ultrasound 04/05/17 10:00 IMPRESSION: Significant sludge within the gallbladder along with mild to moderate gallbladder wall thickening. However sonographic Mullins's sign is absent. If there is still concern for acute cholecystitis, a HIDA scan can be performed for further evaluation. D/ / Weston Bailey MD / Weston Bailey MD Interpreting Provider: Weston Bailey MD Bile Acid Absorption NM 04/05/17 13:00 IMPRESSION: 1. Absent visualization of the gallbladder after morphine administration consistent with cystic duct obstruction/acute cholecystitis. D/ / Angelo Vila MD / Angelo Vila MD Interpreting Provider: Angelo Vila MD Consult Discharge Plan - Plan Instructions: Oxycodone/Acetaminophen (By mouth) Referrals: Kal Lugo MD [Primary Care Provider] - 04/15/17 1:15 pm Maximino Campoverde MD [Partnered Physician] - 05/07/17 1:00 pm Prescriptions: OxyCODONE/APAP 5/325 [Percocet 5/325 MG] 1 each PO Q6HR PRN #25 tablet PRN Reason: postoperative pain <Sy Bryan - Last Filed: 04/05/17 20:36> Date of Encounter: 04/05/17 Review of Systems All systems PM: A 10-system review of systems was performed and is negative for pertinent findings except as documented above in the HPI. General Surgery Exam Initial Vital Signs Temp Pulse Resp BP Pulse Ox 98.5 F 86 18 123/79 96 03/28/17 06:28 03/28/17 06:28 03/28/17 06:28 03/28/17 06:28 03/28/17 06:28 Exam Initial Vital Signs Temp Pulse Resp BP Pulse Ox 98.5 F 86 18 123/79 96 03/28/17 06:28 03/28/17 06:28 03/28/17 06:28 03/28/17 06:28 03/28/17 06:28 Results - Labs 04/05/17 01:18 04/05/17 01:18 Abnormal lab results WBC 19.3 K/mcL (4.3-11.1) H 04/05/17 01:18 RBC 2.56 M/mcL (4.19-5.50) L 04/05/17 01:18 Hgb 8.0 g/dL (12.9-16.9) L 04/05/17 01:18 Hct 22.9 % (37.5-50.1) L 04/05/17 01:18 Neutrophils # 16.6 K/mcL (1.6-8.9) H 04/05/17 01:18 Nucleated RBCs/100 WBC 0.2 /100 WBC (0) H 04/05/17 01:18 APTT 25.9 Seconds (26.0-36.0) L 03/28/17 16:30 ABG pO2 63 mmHg (85-104) L 03/30/17 03:48 ABG O2 Saturation 90 % (95-98) L 03/30/17 03:48 ABG Base Excess -5 mEq/L (-2 to 3) L 03/30/17 03:48 ABG Hematocrit 34.0 % (37.5-50.1) L 03/28/17 15:08 ABG Chloride 108 mEq/L (98-107) H 03/28/17 15:08 Glucose 215 mg/dL (60-95) H 03/28/17 15:08 Sodium 128 mEq/L (136-145) L 04/05/17 01:18 Potassium 3.4 mEq/L (3.5-5.1) L 04/05/17 01:18 Carbon Dioxide 22 mEq/L (23-29) L 04/05/17 01:18 BUN 25 mg/dL (8-23) H 04/05/17 01:18 Creatinine 1.57 mg/dL (0.70-1.30) H 04/05/17 01:18 Est GFR ( Amer) 54 (> 60) L 04/05/17 01:18 Est GFR (Non-Af Amer) 45 (> 60) L 04/05/17 01:18 POC Glucose 98 (58-89) H 03/31/17 12:10 Calculated Osmolality 271 (280-300) L 04/05/17 01:18 Calcium 8.0 mg/dL (8.6-10.3) L 04/05/17 01:18 Total Bilirubin 1.3 mg/dL (0.3-1.0) H 04/05/17 01:18 Direct Bilirubin 0.6 mg/dL (0.0-0.2) H 04/05/17 01:18 AST 41 Units/L (13-39) H 04/05/17 01:18 Troponin I 0.08 ng/mL (< 0.04) H* 04/02/17 07:51 Serum Total Protein 4.6 g/dL (6.4-8.9) L 04/05/17 01:18 Albumin 2.3 g/dL (3.5-5.7) L 04/05/17 01:18 Globulin 2.3 g/dL (2.4-3.5) L 04/05/17 01:18 Albumin/Globulin Ratio 1.0 (1.1-2.2) L 04/05/17 01:18 Arterial Blood Ionized Calcium 1.39 mmol/L (1.15-1.35) H 03/28/17 15:08 Urine Clarity Cloudy (Clear) A 04/03/17 18:25 Urine Bilirubin Small (Negative) H 04/03/17 18:25 Ur Leukocyte Esterase Trace (Negative) H 04/03/17 18:25 Urine Microscopic RBC 3-5 per hpf (0-3) H 04/03/17 18:25 Ur Squamous Epith Cells Moderate per lpf (None-Few) H 04/03/17 18:25 Ur Culture Indicated? YES (NO) A 04/03/17 18:25 Diabetes panel 04/05/17 04/05/17 Range/Units : 01:18 Sodium 128 L (136-145) mEq/L Potassium 3.4 L (3.5-5.1) mEq/L Chloride 102 (98-107) mEq/L Carbon Dioxide 22 L (23-29) mEq/L BUN 25 H (8-23) mg/dL Creatinine 1.57 H (0.70-1.30) mg/dL Glucose 103 (70-105) mg/dL Calcium 8.0 L (8.6-10.3) mg/dL AST 41 H (13-39) Units/L ALT 35 (7-52) Units/L Alkaline Phosphatase 103 (34-104) Units/L Albumin 2.3 L (3.5-5.7) g/dL Calcium panel 04/05/17 04/05/17 Range/Units :18 01:18 Calcium 8.0 L (8.6-10.3) mg/dL Albumin 2.3 L (3.5-5.7) g/dL Pituitary panel 04/05/17 Range/Units : Sodium 128 L (136-145) mEq/L Potassium 3.4 L (3.5-5.1) mEq/L Chloride 102 (98-107) mEq/L Carbon Dioxide 22 L (23-29) mEq/L BUN 25 H (8-23) mg/dL Creatinine 1.57 H (0.70-1.30) mg/dL Glucose 103 (70-105) mg/dL Calcium 8.0 L (8.6-10.3) mg/dL Adrenal panel 04/05/17 04/05/17 Range/Units :18 :18 Sodium 128 L (136-145) mEq/L Potassium 3.4 L (3.5-5.1) mEq/L Chloride 102 (98-107) mEq/L Carbon Dioxide 22 L (23-29) mEq/L BUN 25 H (8-23) mg/dL Creatinine 1.57 H (0.70-1.30) mg/dL Glucose 103 (70-105) mg/dL Calcium 8.0 L (8.6-10.3) mg/dL Total Bilirubin 1.3 H (0.3-1.0) mg/dL AST 41 H (13-39) Units/L ALT 35 (7-52) Units/L Alkaline Phosphatase 103 (34-104) Units/L Albumin 2.3 L (3.5-5.7) g/dL All other labs normal. - Attending Attestation I examined this patient and my medical decision-making was reviewed with the Resident Physician. I agree with the documented findings, disposition and treatment plan as described except to the extent set forth below. I reviewed the above assessment and evaluation with the resident. Noted recent aortobifem bypass. Patient with RUQ pain symptoms over the past 6 days. Noted increasing WBC. Pain to palpation in the RUQ and positive HIDA study. He would be a high risk for surgical complication given his recent surgery. Will first order a CT of the abodmen and pelvis to ensure no significant change in his anatomy and will consult IR for a cholecystostomy tube placement.
[2017-04-05] MEDS: Aspirin 81 MG TAB.CHEW PO SCH (20:34)
[2017-04-06] MEDS: Piperacillin/Tazobactam 3.375 GM/200 ML BAG IVPB SCH ×2 (00:15→08:56)
[2017-04-06] MEDS: 0.9 % Sodium Chloride 1,000 ML IVC SCH (00:16)
[2017-04-06] MEDS: Vancomycin 1,000 MG in D5% in Water 250 ML IVPB SCH (03:25)
[2017-04-06 03:45] LABS: Eosinophils # 0.1 K/mcL (0.0-0.6); Eosinophils % 0.4 %; Hematocrit 23.3 % (37.5-50.1); Hemoglobin 8.2 g/dL (12.9-16.9); Immature Granulocytes % 1.6 % (0-4); Lymphocytes % 4.2 %; Mean Corpuscular HGB Conc 35.2 g/dL (31.6-35.5); Mean Corpuscular Hemoglobin 31.4 pg (28.0-33.3); Mean Corpuscular Volume 89.3 fL (83.0-100.0); Mean Platelet Volume 9.8 fL (9.4-12.4); Monocytes # 1.1 K/mcL (0.0-1.3); Monocytes % 5.3 %; Neutrophils # 17.8 K/mcL (1.6-8.9); Platelet Count 175 K/mcL (140-400); Red Blood Count 2.61 M/mcL (4.19-5.50); Red Cell Distribution Width 14.1 % (11.5-14.5); Segmented Neutrophils % 88.5 %
[2017-04-06 04:02] LABS: INR 1.2; Lymphocytes # 0.8 K/mcL (0.6-4.6); Prothrombin Time 13.3 Seconds (9.4-12.1)
[2017-04-06 04:09] LABS: Potassium 3.6 mEq/L (3.5-5.1)
[2017-04-06 04:13] LABS: Hypochromasia Present (Not Present); Platelet Estimate Normal (Normal)
[2017-04-06] MEDS: Albuterol 2.5 MG/3 ML NEBULIZER IH SCH ×4 (04:20→22:51)
[2017-04-06] MEDS: *HR* Heparin 5,000 UNIT/ML VIAL SQ SCH (07:28)
[2017-04-06] MEDS ORDERED: Aminoglycoside Consult 1 EACH MC ONE (08:32)
[2017-04-06] MEDS: Nicotine 21 MG PATCH.TD24 TD SCH (08:56)
[2017-04-06] MEDS: amLODIPine 5 MG TABLET PO SCH (08:56)
[2017-04-06] MEDS: Gabapentin 300 MG CAPSULE PO SCH (08:56)
[2017-04-06] MEDS: Metoprolol 100 MG TABLET PO SCH ×2 (08:56→20:16)
[2017-04-06] MEDS ORDERED: 0.9 % Sodium Chloride 250 ML ONE (10:23)
[2017-04-06] MEDS: Acetaminophen 325 MG TABLET PO PRN (10:38)
--- NOTE | 2017-04-06 11:34 | General Surgery Progress Note ---
<Keyla Thayer - Last Filed: 04/06/17 17:42> Date of Encounter: 04/06/17 Time of Encounter: 11:32 - Assessment and Plan (1) Acute calculous cholecystitis Current Visit: Yes Status: Acute 66 y M s/p postoperative day #7 an aortobifemoral artery bypass 2/2 PAD presenting with RUQ abdominal pain x3 days with history of previous attacks of biliary colic nature, positive for Mullins's sign on PE with U/S demonstrating significant sludge and gallbladder wall thickening measuring 7 mm, and HIDA scan concerning for acute cholecystitis -Labs: WBC 20.1 -Pt s/p cholecystostomy tube placement by IR. States pain has improved following procedure. --Continue Zosyn -Recommend continued intravenous fluid therapy, correction of electrolyte disorders, and continued control of pain -May advance to cardiac diet, as tolerated -Repeat CBC, hepatic panel in AM (2) Atherosclerosis with claudication of extremity Current Visit: No Status: Chronic s/p postoperative day #7 an aortobifemoral artery bypass 2/2 PAD. Management per endovascular service. (3) DOUG (acute kidney injury) Current Visit: Yes Status: Acute Elevated Creatinine. Continuos monitoring with BMPs in AM. Management per primary team. (4) Anemia Current Visit: Yes Status: Acute Hgb stable. s/p 1 pRBC. Management alongside primary and endovascular service. Qualifiers: Anemia type: unspecified type Qualified Code(s): D64.9 - Anemia, unspecified (5) CKD (chronic kidney disease), stage III Current Visit: Yes Status: Chronic Management per primary team. (6) Essential hypertension Current Visit: Yes Status: Chronic Reviewed BPs. Management per primary team. (7) Moderate protein malnutrition Current Visit: Yes Status: Chronic Management per primary team. (8) DVT prophylaxis Current Visit: Yes Status: Acute Management per primary team. (9) Tobacco abuse Current Visit: Yes Status: Chronic Management per primary team. Subjective Patient reports: no new complaints, feels better (s/p IR procedure ), pain is less, afebrile Objective Vital Signs - Last 8 Hours Temp Pulse Resp BP Pulse Ox 04/06/17 11:19 99.1 F 109 20 139/71 84 04/06/17 10:45 99.3 F 114 18 143/67 04/06/17 10:30 99.4 F 113 18 135/74 91 04/06/17 10:26 101.3 F H 113 18 144/71 92 04/06/17 09:53 16 143/67 91 04/06/17 09:15 113 04/06/17 07:02 98.4 F 111 20 139/72 89 04/06/17 04:25 99.5 F 103 19 143/74 95 04/06/17 04:20 18 95 Intake and Output 04/05/17 04/06/17 04/06/17 23:59 07:59 15:59 Intake Total 650 / 650 450 / 450 150 / 150 Output Total 400 / 400 200 / 200 0 / 0 Balance 250 / 250 250 / 250 150 / 150 Intake: IV Fluids 450 / 450 450 / 450 Zosyn Premix 3.375 GM/200 ML 3. 200 / 200 200 / 200 375 gm In 200 ml @ 50 mls/hr IVPB Q8H [facility] Rx#:[id number] Vancocin 1,000 MG In Dextrose 5 250 / 250 250 / 250 % 250 ML @ 166.667 mls/hr IVPB Q12H [facility] Rx#:[id number] Oral 200 / 200 0 / 0 150 / 150 Blood Product 0 / 0 Platelet Pheresis Lp Irr 1st 0 / 0 Unit [id number] Output: Urine 400 / 400 200 / 200 0 / 0 Other: Meal Breakfast Percent of Meal Consumed 0% Weight 99.7 kg Blood Glucose* 120 Patient Weight 04/06/17 23:59 Weight 99.7 kg - General physical appearance no distress - Eyes normal ocular movement - Respiratory normal expansion, normal respiratory effort wheezing: bilateral - Cardiovascular Cardiovascular exam: Present: regular rhythm. Absent: distant heart sounds Addtional Comments: +S1, S2 - Abdomen Abdomen: Present: bowel sounds present (mildly hypoactive ), soft, non tender Additional Comments: Abdominal binder in place. Cholecystostomy tube Drain situated below abdominal binder, draining appropriately. Not leaking. - Incision Incision: Present: intact (midline dressing intact). Absent: draining - Labs 04/06/17 03:22 04/06/17 03:22 Diabetes panel 04/06/17 Range/Units 03:22 Sodium 127 L (136-145) mEq/L Potassium 3.6 (3.5-5.1) mEq/L Chloride 101 (98-107) mEq/L Carbon Dioxide 20 L (23-29) mEq/L BUN 27 H (8-23) mg/dL Creatinine 1.53 H (0.70-1.30) mg/dL Glucose 104 (70-105) mg/dL Calcium 8.0 L (8.6-10.3) mg/dL Calcium panel 04/06/17 Range/Units 03:22 Calcium 8.0 L (8.6-10.3) mg/dL Pituitary panel 04/06/17 Range/Units 03:22 Sodium 127 L (136-145) mEq/L Potassium 3.6 (3.5-5.1) mEq/L Chloride 101 (98-107) mEq/L Carbon Dioxide 20 L (23-29) mEq/L BUN 27 H (8-23) mg/dL Creatinine 1.53 H (0.70-1.30) mg/dL Glucose 104 (70-105) mg/dL Calcium 8.0 L (8.6-10.3) mg/dL Adrenal panel 04/06/17 Range/Units 03:22 Sodium 127 L (136-145) mEq/L Potassium 3.6 (3.5-5.1) mEq/L Chloride 101 (98-107) mEq/L Carbon Dioxide 20 L (23-29) mEq/L BUN 27 H (8-23) mg/dL Creatinine 1.53 H (0.70-1.30) mg/dL Glucose 104 (70-105) mg/dL Calcium 8.0 L (8.6-10.3) mg/dL - VTE Documentation of Mechanical Device: Intermittent pneumatic compression device Consult Discharge Plan - Plan Instructions: Oxycodone/Acetaminophen (By mouth) Referrals: Kal Lugo MD [Primary Care Provider] - 04/15/17 1:15 pm Maximino Campoverde MD [Partnered Physician] - 05/07/17 1:00 pm Prescriptions: OxyCODONE/APAP 5/325 [Percocet 5/325 MG] 1 each PO Q6HR PRN #25 tablet PRN Reason: postoperative pain <Sy Bryan - Last Filed: 04/06/17 18:06> Date of Encounter: 04/06/17 Objective Vital Signs - Last 8 Hours Temp Pulse Resp BP Pulse Ox 04/06/17 16:10 98.8 F 102 18 145/79 89 04/06/17 16:00 103 145/79 88 04/06/17 15:45 103 135/78 04/06/17 15:30 103 20 133/73 88 04/06/17 15:15 100 133/71 04/06/17 15:04 103 136/72 88 04/06/17 14:50 102 18 135/71 88 04/06/17 14:39 98.8 F 102 18 136/72 88 04/06/17 14:14 101 30 117/56 88 04/06/17 14:10 104 32 124/58 88 04/06/17 12:00 98.9 F 102 20 144/79 90 04/06/17 11:45 107 04/06/17 11:35 99 F 109 20 143/68 04/06/17 11:34 99 F 109 20 143/68 92 04/06/17 11:19 99.1 F 109 20 139/71 84 04/06/17 10:45 99.3 F 114 18 143/67 04/06/17 10:30 99.4 F 113 18 135/74 91 04/06/17 10:26 101.3 F H 113 18 144/71 92 Intake and Output 04/06/17 04/06/17 04/06/17 07:59 15:59 23:59 Intake Total 450 / 450 1023 / 1023 50 / 50 Output Total 200 / 200 320 / 320 240 / 240 Balance 250 / 250 703 / 703 -190 / -190 Intake: IV Fluids 450 / 450 200 / 200 50 / 50 0.9 % Sodium Chloride 250 ML As 50 / 50 .ROUTE .STK-MED [facility] Rx#: [id number] Zosyn Premix 3.375 GM/200 ML 3. 200 / 200 200 / 200 375 gm In 200 ml @ 50 mls/hr IVPB Q8H [facility] Rx#:[id number] Vancocin 1,000 MG In Dextrose 5 250 / 250 % 250 ML @ 166.667 mls/hr IVPB Q12H [facility] Rx#:[id number] Oral 0 / 0 150 / 150 Blood Product 673 / 673 Platelet Pheresis Lp Irr 1st 353 / 353 Unit [id number] Platelet Pheresis Lp Irr 2nd 320 / 320 Unit [id number] Output: Urine 200 / 200 320 / 320 240 / 240 Other: Meal Lunch Percent of Meal Consumed 0% Stool Size Smear Stool Consistency loose Weight 99.7 kg Blood Glucose* 120 112 Patient Weight 04/06/17 23:59 Weight 99.7 kg - Labs 04/06/17 03:22 04/06/17 03:22 Diabetes panel 04/06/17 Range/Units 03:22 Sodium 127 L (136-145) mEq/L Potassium 3.6 (3.5-5.1) mEq/L Chloride 101 (98-107) mEq/L Carbon Dioxide 20 L (23-29) mEq/L BUN 27 H (8-23) mg/dL Creatinine 1.53 H (0.70-1.30) mg/dL Glucose 104 (70-105) mg/dL Calcium 8.0 L (8.6-10.3) mg/dL Calcium panel 04/06/17 Range/Units 03:22 Calcium 8.0 L (8.6-10.3) mg/dL Pituitary panel 04/06/17 Range/Units 03:22 Sodium 127 L (136-145) mEq/L Potassium 3.6 (3.5-5.1) mEq/L Chloride 101 (98-107) mEq/L Carbon Dioxide 20 L (23-29) mEq/L BUN 27 H (8-23) mg/dL Creatinine 1.53 H (0.70-1.30) mg/dL Glucose 104 (70-105) mg/dL Calcium 8.0 L (8.6-10.3) mg/dL Adrenal panel 04/06/17 Range/Units 03:22 Sodium 127 L (136-145) mEq/L Potassium 3.6 (3.5-5.1) mEq/L Chloride 101 (98-107) mEq/L Carbon Dioxide 20 L (23-29) mEq/L BUN 27 H (8-23) mg/dL Creatinine 1.53 H (0.70-1.30) mg/dL Glucose 104 (70-105) mg/dL Calcium 8.0 L (8.6-10.3) mg/dL - Attending Attestation I examined this patient and my medical decision-making was reviewed with the Resident Physician. I agree with the documented findings, disposition and treatment plan as described except to the extent set forth below. The above assessment and evaluation agree with the above plan. Patient is status post cholecystostomy tube placement due to cholecystitis. Patient notes improvement following the tube placement. Bilious drainage noted within the back. Will follow CBCs and liver function tests in a.m.
--- NOTE | 2017-04-06 12:25 | Internal Med Progress Note ---
Date of Encounter: 04/06/17 Time of Encounter: 12:23 - Assessment and plan (1) Acute cholecystitis Current Visit: Yes Status: Acute Assessment and plan: Patient was having right upper abdominal pain and fever. Imaging consistent with acute cholecystitis. His acute cholecystitis is associated with sepsis. He has been having increasing white count. Has been treated with Zosyn and vancomycin. Since now source of infection is known change antibiotic to meropenem and Flagyl. This is still 20k range. He is having cholecystostomy tube placement today. Surgery following. (2) Anemia Current Visit: Yes Status: Acute Assessment and plan: He had recent femoropopliteal bypass surgery, Hb has dropped to 8.2. Likely associated to postop blood loss anemia. Continue to monitor and transfuse as needed. He has already transfused 1 unit at least. Qualifiers: Anemia type: other cause Other causes of anemia: acute posthemorrhagic Qualified Code(s): D62 - Acute posthemorrhagic anemia (3) Acute hyponatremia Current Visit: Yes Status: Acute Assessment and plan: His sodium is 127 today. Likely due to hypervolemia, continue to monitor sodium level. If his blood pressure is stable would consider diuretics. Continue to monitor sodium level if worsening consult nephrology. (4) Acute respiratory failure with hypoxia Current Visit: Yes Status: Acute Assessment and plan: patient was on 8 L NC, improved with lasix, O2 down to 2 L NC. Clinically he continued to have a significant bilateral crepitations and evidence of hypervolemia. Plan to repeat chest x-ray and proceed from there. Also has now deteriorating renal function. (5) CHF (congestive heart failure) Current Visit: Yes Status: Chronic Assessment and plan: acute on chronci diastolic CHF improved with lasix Previously had mildly reduced EF 45% on echo in 2013. Rechecked echo and EF has now improved to 60-65%, moderate diastolic dysfunction. O2 down to 2 L. Clinically he continues to have evidence of lytic edema and bilateral crackles adjust Lasix accordingly. Qualifiers: Congestive heart failure type: diastolic Congestive heart failure chronicity: chronic Qualified Code(s): I50.32 - Chronic diastolic (congestive ) heart failure - Time Spent With Patient Greater than 35 minutes - Subjective Interval history: Patient with status post aortofemoral bypass surgery. Has been having upper abdominal pain and now found to have acute cholecystitis. He has been on Zosyn and vancomycin. Since he is noted to have acute cholecystitis change antibiotic to meropenem and Flagyl. He has persistent leukocytosis. He is planned to have a cholecystostomy tube placement today. He denies any chest pain but he has cough and shortness of breath and he has been on oxygen since post surgery he had evidence of fluid overload at that time. Also has been treated for acute kidney injury His bypass surgery incision in the right groin area is healing. Calcific significant leg edema as well - Constitutional Vitals: Temp Pulse Resp BP Pulse Ox 99.2 F 109 20 136/67 92 04/06/17 12:00 04/06/17 12:00 04/06/17 12:00 04/06/17 12:00 04/06/17 12:00 General appearance: Present: cooperative, A&O X 3, pleasant, no acute distress, obese, answers questions appropriately Exam: Middle-aged male. Ill-looking. Has tachypnea and orthopnea at rest. On oxygen. Hospital no cyanosis. Neck without any cervical or supraclavicular lymphadenopathy. CVS S1-S2 regular. No murmur heard. Respiratory system decreased and abundantly with bilateral crepitations. Abdomen soft passed tenderness in the right hypochondrium. Has bruises. Right groin incision healing. Extremities with bilateral moderate edema. 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 Alert awake oriented. No facial asymmetry. Internal Medicine: Result - Labs CBC & Chem 7: 04/06/17 03:22 04/06/17 03:22 Labs: Short CBC 04/06/17 Range/Units 03:22 WBC 20.1 H (4.3-11.1) K/mcL Hgb 8.2 L (12.9-16.9) g/dL Hct 23.3 L (37.5-50.1) % Plt Count 175 (140-400) K/mcL Neutrophils # 17.8 H (1.6-8.9) K/mcL BMP 04/06/17 03:22 Sodium 127 L Potassium 3.6 Chloride 101 Carbon Dioxide 20 L BUN 27 H Creatinine 1.53 H Glucose 104 Calcium 8.0 L - ABG Interpretation ABG results: ABG ABG pH 7.34 pH Units (7.32-7.45) 03/30/17 03:48 ABG pCO2 38 mmHg (35-45) 03/30/17 03:48 ABG pO2 63 mmHg (85-104) L 03/30/17 03:48 ABG O2 Saturation 90 % (95-98) L 03/30/17 03:48 PT/INR, D-dimer PT 13.3 Seconds (9.4-12.1) H 04/06/17 03:22 - Impressions Impressions KUB X-Ray 04/05/17 08:00 IMPRESSION: Mildly dilated loops of small bowel may indicate ileus or obstruction. D/ / Jared Bacon MD / Jared Bacon MD Interpreting Provider: Jared Bacon MD Bile Acid Absorption NM 04/05/17 13:00 IMPRESSION: 1. Absent visualization of the gallbladder after morphine administration consistent with cystic duct obstruction/acute cholecystitis. D/ / Angelo Vila MD / Angelo Vila MD Interpreting Provider: Angelo Vila MD Abdomen/Pelvis CT 04/05/17 20:32 IMPRESSION: 1. Distended gallbladder with gallbladder wall thickening, pericholecystic fluid and pericholecystic inflammatory changes consistent with cholecystitis. 2. Small bilateral pleural effusions with bibasilar atelectasis. 3. Mild anasarca with diffuse abdominal ascites, likely related to third-spacing of fluid. 4. Aortobifemoral graft. Hemorrhagic component adjacent to the aortic anastomosis and at the level of the right femoral anastomosis as outlined above. Fluid tracking along the aortic graft and the right limb of the femoral graft. No gas is present. 5. Colonic diverticulosis with no acute features. D/ / 04/06/2017 06:43:52 Mitesh Acosta MD / mani Interpreting Provider: Mitesh Acosta MD - VTE Documentation of Mechanical Device: Intermittent pneumatic compression device Consult Discharge Plan - Plan Instructions: Oxycodone/Acetaminophen (By mouth) Referrals: Kal Lugo MD [Primary Care Provider] - 04/15/17 1:15 pm Maximino Campoverde MD [Partnered Physician] - 05/07/17 1:00 pm Prescriptions: OxyCODONE/APAP 5/325 [Percocet 5/325 MG] 1 each PO Q6HR PRN #25 tablet PRN Reason: postoperative pain
[2017-04-06] MEDS ORDERED: *HR* Midazolam HCl 2 MG/2 ML VIAL IVP ONE (13:45)
[2017-04-06] MEDS ORDERED: *HR* FentaNYL (PF) 100 MCG/2 ML VIAL IVP ONE (13:45)
--- NOTE | 2017-04-06 14:20 | Pre-Sedation Evaluation ---
Pre-sedation evaluation - Pre-sedation checklist Date of procedure: 04/06/17 Procedure: ct drain placement Recent Vitals: Last Vital Signs Temp 98.9 F 04/06/17 12:00 Pulse 101 04/06/17 14:14 Resp 30 04/06/17 14:14 BP 117/56 04/06/17 14:14 Pulse Ox 88 04/06/17 14:14 H&P (including ROS) documented in medical record: Yes Previous reaction to sedatives/anesthetics: No Dietary Status: NPO after Midnight Airway Assessment: Patient can open mouth completely, TMJ function normal, Micrognathia (under-bite, receding chin) absent, Neck with adequate range of motion ASA Classification *see protocol: CLASS II-Mild systemic disease Plan of Care: Pt appropriate candidate for procedure/moderate/conscious sedation , Risks/benefits of procedure/sedation discussed w/ patient/family, If not NPO; Risk of intake outweiged by necessity to perform procedure
--- NOTE | 2017-04-06 14:22 | IR Procedure Note ---
Date of procedure: 04/06/17 Consent Obtained: Verbal consent, Written consent Timeout: Correct patient and procedure verified, Correct site verified, Time out performed, Skin prep completed Local anesthetic: Lidocaine 1% Indications: acute cholecystitis Procedure Performed: cholecystostomy tube placement Was there an entry level administrative assistant present: No Site/Technique: GB Results/Findings: dark bile Estimated blood loss (cc): 2 Complications: None; Tolerated procedure well Post Procedure Treatment Plan: tube to gravity drainage, bedrest x 2h Specimen: none
[2017-04-06] MEDS: Meropenem 1,000 MG in Water for inj. (sterile) 20 ML 10 ML IVP SCH (17:03)
[2017-04-06] MEDS: MetroNIDAZOLE 500 MG/100 ML 500 MG/100 ML BAG IVPB SCH (17:03)
[2017-04-06 17:40] LABS: Bilirubin,Urine Small (Negative); Blood,Urine Negative (Negative); Clarity,Urine Cloudy (Clear); Color,Urine Dark Yellow (Yellow); Glucose,Urine (UA) Normal (Normal); Ketones,Urine Negative (Negative); Leukocyte Esterase,Urine Trace (Negative); Nitrite,Urine Negative (Negative); PH,Urine 5.5 pH Units (5.0-8.0); Protein,Urine Trace mg/dL (Neg-Trace); Specific Gravity,Urine 1.026 (1.010-1.025); Urobilinogen,Urine Normal (Normal)
[2017-04-06 17:42] LABS: Bacteria,Urine None Seen per hpf (None-Few); Hyaline Casts,Urine None Seen per lpf (None-Few); RBC,Urine 15-30 per hpf (0-3); Squamous Epithelial Cell,Urine Many per lpf (None-Few)
[2017-04-06] MEDS: Aspirin 81 MG TAB.CHEW PO SCH (18:06)
[2017-04-06] MEDS: *HR* Morphine 2 MG/ML SYRINGE IVP PRN (20:16)
[2017-04-06] MEDS: Ondansetron 4 MG/2 ML VIAL IVP PRN (20:16)
[2017-04-07] MEDS: MetroNIDAZOLE 500 MG/100 ML 500 MG/100 ML BAG IVPB SCH ×3 (00:27→15:10)
[2017-04-07] MEDS: 0.9 % Sodium Chloride 1,000 ML IVC SCH ×3 (00:28→15:12)
[2017-04-07] MEDS: Meropenem 1,000 MG in Water for inj. (sterile) 20 ML 10 ML IVP SCH ×3 (00:29→15:10)
[2017-04-07] MEDS: Ondansetron 4 MG/2 ML VIAL IVP PRN (03:58)
[2017-04-07] MEDS: *HR* Morphine 2 MG/ML SYRINGE IVP PRN ×2 (03:58→10:11)
[2017-04-07] MEDS: Albuterol 2.5 MG/3 ML NEBULIZER IH SCH ×4 (04:35→21:42)
[2017-04-07 05:07] LABS: Basophils % 0.1 %; Eosinophils # 0.2 K/mcL (0.0-0.6); Eosinophils % 0.7 %; Hematocrit 23.1 % (37.5-50.1); Immature Granulocytes % 1.3 % (0-4); Lymphocytes # 0.7 K/mcL (0.6-4.6); Lymphocytes % 3.1 %; Mean Corpuscular HGB Conc 34.6 g/dL (31.6-35.5); Mean Corpuscular Hemoglobin 31.3 pg (28.0-33.3); Mean Corpuscular Volume 90.2 fL (83.0-100.0); Mean Platelet Volume 9.7 fL (9.4-12.4); Monocytes # 1.2 K/mcL (0.0-1.3); Monocytes % 5.3 %; Platelet Count 207 K/mcL (140-400); Red Blood Count 2.56 M/mcL (4.19-5.50); Red Cell Distribution Width 14.6 % (11.5-14.5); Segmented Neutrophils % 89.5 %
[2017-04-07 05:26] LABS: BUN/Creatinine Ratio 22 (6-26); Blood Urea Nitrogen 30 mg/dL (8-23); Calcium 8.1 mg/dL (8.6-10.3); Carbon Dioxide 22 mEq/L (23-29); Chloride 101 mEq/L (98-107); Glucose 93 mg/dL (70-105); Osmolality,Calculated 278 (280-300); Potassium 3.8 mEq/L (3.5-5.1); Sodium 131 mEq/L (136-145); eGFR For African Americans > 60 (> 60); eGFR For Non-African Americans 51 (> 60)
[2017-04-07 05:27] LABS: Albumin 2.3 g/dL (3.5-5.7); Albumin/Globulin Ratio 0.9 (1.1-2.2); Bilirubin,Direct 0.9 mg/dL (0.0-0.2); Bilirubin,Indirect 0.7 mg/dL (0.0-1.2); Bilirubin,Total 1.6 mg/dL (0.3-1.0); Globulin 2.5 g/dL (2.4-3.5); Total Protein 4.8 g/dL (6.4-8.9)
[2017-04-07] MEDS: amLODIPine 5 MG TABLET PO SCH (07:51)
[2017-04-07] MEDS: Metoprolol 100 MG TABLET PO SCH ×2 (07:51→20:43)
[2017-04-07] MEDS: Nicotine 21 MG PATCH.TD24 TD SCH (07:51)
[2017-04-07] MEDS: Gabapentin 300 MG CAPSULE PO SCH (07:51)
--- NOTE | 2017-04-07 11:00 | General Surgery Progress Note ---
Date of Encounter: 04/07/17 Time of Encounter: 10:58 - Assessment and Plan (1) Acute cholecystitis Current Visit: Yes Status: Acute The patient is s/p cholecystostomy tube placement. Noted mild elevation in bilirubin. Will follow. (2) Leukocytosis Current Visit: Yes Status: Acute Noted continued rise in WBC despite drainage tube placement. Would recommend obtaining blood cultures and even consider additional coverage with an antifungal such as Diflucan, given his broad base antibacterial medication. Qualifiers: Leukocytosis type: lymphocytosis Qualified Code(s): D72.820 - Lymphocytosis (symptomatic) Subjective Patient reports: other (The patient states that his pain is about a "5," definitely better compared to yesterday (prior to the cholecystostomy tube placement).) Objective Vital Signs - Last 8 Hours Temp Pulse Resp BP Pulse Ox 04/07/17 10:15 18 97 04/07/17 08:18 98.5 F 105 20 125/67 94 04/07/17 04:35 16 95 04/07/17 03:48 98.2 F 100 18 131/69 96 Intake and Output 04/06/17 04/07/17 04/07/17 23:59 07:59 15:59 Intake Total 650 / 650 110 / 110 500 / 500 Output Total 730 / 730 300 / 300 250 / 250 Balance -80 / -80 -190 / -190 250 / 250 Intake: IV Fluids 160 / 160 110 / 110 0.9 % Sodium Chloride 250 ML As 50 / 50 .ROUTE .STK-MED [facility] Rx#: [id number] Merrem 1,000 MG In Water for 10 10 inj. (sterile) 10 ML @ 200 mls/ hr IVP Q8HR [facility] Rx#:[id number] Flagyl Premix 500 MG/100 ML 500 100 / 100 100 / 100 mg In 100 ml @ 100 mls/hr IVPB Q8HR [facility] Rx#:[id number] Oral 490 / 490 500 / 500 Output: Urine 640 / 640 250 / 250 250 / 250 Wound Drainage 90 / 90 50 / 50 Right Lower Abdomen 90 / 90 50 / 50 Other: Meal Dinner Percent of Meal Consumed 10% Stool Size Smear Stool Consistency loose Weight 99.9 kg Patient Weight 04/07/17 23:59 Weight 99.9 kg - General physical appearance well nourished, no distress - Abdomen Abdomen: Present: soft, tender (Mildly tender in the RUQ at the location of the drain site. No erythema. Bilous material within drainage bag) - Labs 04/07/17 04:43 04/07/17 04:43 Diabetes panel 04/07/17 04/07/17 Range/Units 04:43 04:43 Sodium 131 L (136-145) mEq/L Potassium 3.8 (3.5-5.1) mEq/L Chloride 101 (98-107) mEq/L Carbon Dioxide 22 L (23-29) mEq/L BUN 30 H (8-23) mg/dL Creatinine 1.39 H (0.70-1.30) mg/dL Glucose 93 (70-105) mg/dL Calcium 8.1 L (8.6-10.3) mg/dL AST 38 (13-39) Units/L ALT 30 (7-52) Units/L Alkaline Phosphatase 156 H (34-104) Units/L Albumin 2.3 L (3.5-5.7) g/dL Calcium panel 04/07/17 04/07/17 Range/Units 04:43 04:43 Calcium 8.1 L (8.6-10.3) mg/dL Albumin 2.3 L (3.5-5.7) g/dL Pituitary panel 04/07/17 Range/Units 04:43 Sodium 131 L (136-145) mEq/L Potassium 3.8 (3.5-5.1) mEq/L Chloride 101 (98-107) mEq/L Carbon Dioxide 22 L (23-29) mEq/L BUN 30 H (8-23) mg/dL Creatinine 1.39 H (0.70-1.30) mg/dL Glucose 93 (70-105) mg/dL Calcium 8.1 L (8.6-10.3) mg/dL Adrenal panel 04/07/17 04/07/17 Range/Units 04:43 04:43 Sodium 131 L (136-145) mEq/L Potassium 3.8 (3.5-5.1) mEq/L Chloride 101 (98-107) mEq/L Carbon Dioxide 22 L (23-29) mEq/L BUN 30 H (8-23) mg/dL Creatinine 1.39 H (0.70-1.30) mg/dL Glucose 93 (70-105) mg/dL Calcium 8.1 L (8.6-10.3) mg/dL Total Bilirubin 1.6 H (0.3-1.0) mg/dL AST 38 (13-39) Units/L ALT 30 (7-52) Units/L Alkaline Phosphatase 156 H (34-104) Units/L Albumin 2.3 L (3.5-5.7) g/dL - VTE Documentation of Mechanical Device: Intermittent pneumatic compression device Consult Discharge Plan - Plan Instructions: Oxycodone/Acetaminophen (By mouth) Referrals: Kal Lugo MD [Primary Care Provider] - 04/15/17 1:15 pm Maximino Campoverde MD [Partnered Physician] - 05/07/17 1:00 pm Prescriptions: OxyCODONE/APAP 5/325 [Percocet 5/325 MG] 1 each PO Q6HR PRN #25 tablet PRN Reason: postoperative pain
--- NOTE | 2017-04-07 13:34 | Internal Med Progress Note ---
Date of Encounter: 04/07/17 Time of Encounter: 13:31 - Assessment and plan (1) Acute hyponatremia Current Visit: Yes Status: Acute Assessment and plan: His sodium is improving to 131 today. Clinically hypervolemic hyponatremia.. We will institute fluid restriction. Start IV Lasix. (2) Acute respiratory failure with hypoxia Current Visit: Yes Status: Acute Assessment and plan: Chest x-ray shows pulmonary edema and bibasilar atelectasis. We will start Lasix. Monitor strict I's and O's, kidney function and oxygen requirements. Incentive spirometry. Out of bed for meals. (3) Acute cholecystitis Current Visit: Yes Status: Acute Assessment and plan: Status post cholecystostomy tube placement yesterday. Appreciate general surgery recommendations. Previously treated with Zosyn and vancomycin for 3 days, switched to meropenem and Flagyl yesterday. MAXIMUM TEMPERATURE was 101.2 yesterday at 10 AM prior to cholecystostomy. He has been afebrile since. Continue current antibiotic regimen. I will not restart vancomycin unless patient becomes febrile due to potential nephrotoxicity. Monitor WBC daily, WBC increasing today to 22 however patient clinically responding to antibiotic regimen. (4) CAD in [place] artery Current Visit: Yes Status: Chronic Assessment and plan: Restart Plavix. Continue with aspirin and metoprolol and Lipitor. (5) Acute blood loss anemia Current Visit: Yes Status: Acute Assessment and plan: from surgery. Monitor daily. Transfuse 2 maintain hemoglobin above 8. (6) CKD (chronic kidney disease), stage III Current Visit: Yes Status: Chronic Assessment and plan: Avoid nephrotoxins. - Subjective Interval history: He reports severe generalized weakness when he gets out of bed can walk to the bathroom before getting exhausted. Abdominal pain has improved since yesterday after he had a gallbladder drain placed by radiology. - Constitutional Vitals: Temp Pulse Resp BP Pulse Ox 98.5 F 90 18 125/67 97 04/07/17 08:18 04/07/17 12:30 04/07/17 10:15 04/07/17 08:18 04/07/17 10:15 General appearance: Present: cooperative, A&O X 3, pleasant, no acute distress, obese, answers questions appropriately - Neck Neck exam general surgery: Present: supple, trachea midline. Absent: lymphadenopathy - Respiratory Respiratory exam: Present: rales (Scattered crackles bilaterally). Absent: accessory muscle use, rhonchi, wheezes - Cardiovascular Cardiovascular exam: Present: irregular rhythm, +S1, +S2, systolic murmur. Absent: diastolic murmur, gallop, rubs - GI/Abdominal GI/Abdominal exam: Present: normal bowel sounds, soft, no peritoneal signs. Absent: distended, tenderness - Extremities Exam Extremities exam: Present: pedal edema, warm, radial pulses palpable and symmetrical. Absent: calf tenderness, cyanotic - Neurological Exam Neurological exam: Present: CN II-XII intact, oriented X3, no focal deficits. Absent: pronater drift, facial droop, speech deficit - Skin Skin exam: Present: dry, intact Internal Medicine: Result - Labs CBC & Chem 7: 04/07/17 04:43 04/07/17 04:43 Labs: Short CBC 04/07/17 Range/Units 04:43 WBC 22.4 H (4.3-11.1) K/mcL Hgb 8.0 L (12.9-16.9) g/dL Hct 23.1 L (37.5-50.1) % Plt Count 207 (140-400) K/mcL Neutrophils # 20.0 H (1.6-8.9) K/mcL BMP 04/07/17 04:43 Sodium 131 L Potassium 3.8 Chloride 101 Carbon Dioxide 22 L BUN 30 H Creatinine 1.39 H Glucose 93 Calcium 8.1 L Liver Function 04/07/17 Range/Units 04:43 Total Bilirubin 1.6 H (0.3-1.0) mg/dL Direct Bilirubin 0.9 H (0.0-0.2) mg/dL AST 38 (13-39) Units/L ALT 30 (7-52) Units/L Alkaline Phosphatase 156 H (34-104) Units/L Albumin 2.3 L (3.5-5.7) g/dL Urine 04/06/17 Range/Units 17:00 Urine Color Dark Yellow (Yellow) Urine Clarity Cloudy A (Clear) Urine pH 5.5 (5.0-8.0) pH Units Ur Specific [place] 1.026 H (1.010-1.025) Urine Protein Trace (Neg-Trace) mg/dL Urine Glucose (UA) Normal (Normal) mg/dL - ABG Interpretation ABG results: ABG ABG pH 7.34 pH Units (7.32-7.45) 03/30/17 03:48 ABG pCO2 38 mmHg (35-45) 03/30/17 03:48 ABG pO2 63 mmHg (85-104) L 03/30/17 03:48 ABG O2 Saturation 90 % (95-98) L 03/30/17 03:48 PT/INR, D-dimer PT 13.3 Seconds (9.4-12.1) H 04/06/17 03:22 - Impressions Impressions Chest X-Ray 04/06/17 12:35 IMPRESSION: 1. New small right pleural effusion and right basilar atelectasis. 2. Redemonstration of interstitial opacities, decreased from prior study, suggesting improving pulmonary edema. D/ / Clay Pedraza MD / Clay Pedraza MD Interpreting Provider: Clay Pedraza MD - VTE Documentation of Mechanical Device: Intermittent pneumatic compression device Consult Discharge Plan - Plan Instructions: Oxycodone/Acetaminophen (By mouth) Referrals: Kal Lugo MD [Primary Care Provider] - 04/15/17 1:15 pm Maximino Campoverde MD [Partnered Physician] - 05/07/17 1:00 pm Prescriptions: OxyCODONE/APAP 5/325 [Percocet 5/325 MG] 1 each PO Q6HR PRN #25 tablet PRN Reason: postoperative pain
[2017-04-07] MEDS ORDERED: *HR* Morphine 2 MG/ML SYRINGE IVP PRN (14:03)
[2017-04-07] MEDS: Furosemide 20 MG/2 ML VIAL IVP SCH (15:10)
[2017-04-07] MEDS: Aspirin 81 MG TAB.CHEW PO SCH (17:17)
[2017-04-07] MEDS: *HR* HYDROcodone/Acet 5/325 mg TABLET PO PRN (20:43)
--- NOTE | 2017-04-08 00:04 | Vascular/[facility] Progress Note ---
Date of Encounter: 04/07/17 Time of Encounter: 13:45 - Assessment and plan (1) Atherosclerosis of both lower extremities with rest pain Current Visit: Yes Status: Chronic The patient is postoperative day #9 after an aortobifemoral artery bypass. His incisions are healing. He has signals present bilaterally. He is stable for a vascular standpoint. Qualifiers: Peripheral atherosclerosis artery type: [place] artery Qualified Code(s): I70.223 - Atherosclerosis of [place] arteries of extremities with rest pain, bilateral legs (2) Acute cholecystitis Current Visit: Yes Status: Acute The patient has acute cholecystitis. He remains on antibiotics. He was afebrile overnight, but his WBC have increased. Continue with antibiotics today. Patient is tolerating a diet and has had a cholecystostomy tube placed. Patient discussed with Dr. Bryan and Dr. Price. (3) Essential hypertension Current Visit: Yes Status: Chronic (4) Mixed hyperlipidemia Current Visit: Yes Status: Chronic (5) CAD in [place] artery Current Visit: Yes Status: Chronic (6) Acute blood loss anemia Current Visit: Yes Status: Acute The patient has acute expected postoperative blood loss anemia. He is hemodynamically stable without evidence of ongoing blood loss. He received 1 unit of PRBCs today. Heparin held due to anemia. (7) CKD (chronic kidney disease), stage III Current Visit: Yes Status: Chronic The patient has chronic kidney disease stage III. He continues to make urine. Will restart intravenous fluids due to increased creatinine. Recheck labs in am. (8) Tobacco abuse Current Visit: Yes Status: Chronic Will start nicotine patch. Smoking cessation discussed. (9) Moderate protein malnutrition Current Visit: Yes Status: Chronic Continue with nutritional shakes. - Subjective Interval history: Afebrile overnight. Comfortable and tolerating his diet. He denies any abdominal, flank or back pain. He denies chest pain or shortness of breath. Vital Signs, Last 4 Hours Temp Pulse Resp BP Pulse Ox 04/07/17 21:43 19 90 04/07/17 20:08 98.1 F 101 20 124/59 92 - Physical Examination General: Present: No Apparent Distress Cardiac: Present: Reg Rate and Rhythm Lungs: Present: Normal Breath Sounds Neuro: Present: Alert and responsive Vascular: Present: Normal capillary refill. Absent: Cyanosis, Edema Abdomen: Present: Soft, Non-tender, Other (incision clean, dry and intact without erythema) Skin: Present: No rashes noted on visualized skin - VTE Documentation of Mechanical Device: Intermittent pneumatic compression device Results 04/08/17 03:46 04/08/17 03:46 Lab Results, Last 24 hours 04/07/17 04/07/17 04/07/17 04:43 04:43 04:43 WBC 22.4 H Hgb 8.0 L Hct 23.1 L Plt Count 207 Sodium 131 L Potassium 3.8 Chloride 101 Carbon Dioxide 22 L BUN 30 H Creatinine 1.39 H Glucose 93 Calcium 8.1 L Total Bilirubin 1.6 H AST 38 ALT 30 Alkaline Phosphatase 156 H Consult Discharge Plan - Plan Instructions: Oxycodone/Acetaminophen (By mouth) Referrals: Kal Lugo MD [Primary Care Provider] - 04/15/17 1:15 pm Maximino Campoverde MD [Partnered Physician] - 05/07/17 1:00 pm Prescriptions: OxyCODONE/APAP 5/325 [Percocet 5/325 MG] 1 each PO Q6HR PRN #25 tablet PRN Reason: postoperative pain
[2017-04-08] MEDS: Ondansetron 4 MG/2 ML VIAL IVP PRN (00:09)
[2017-04-08] MEDS: MetroNIDAZOLE 500 MG/100 ML 500 MG/100 ML BAG IVPB SCH ×2 (00:10→08:00)
[2017-04-08] MEDS: Meropenem 1,000 MG in Water for inj. (sterile) 20 ML 10 ML IVP SCH ×3 (00:10→16:20)
[2017-04-08] MEDS: 0.9 % Sodium Chloride 1,000 ML IVC SCH (00:12)
[2017-04-08 04:30] LABS: Basophils % 0.1 %; Eosinophils # 0.4 K/mcL (0.0-0.6); Eosinophils % 1.7 %; Hematocrit 23.3 % (37.5-50.1); Hemoglobin 7.8 g/dL (12.9-16.9); Immature Granulocytes % 1.8 % (0-4); Lymphocytes % 4.1 %; Mean Corpuscular HGB Conc 33.5 g/dL (31.6-35.5); Mean Corpuscular Hemoglobin 30.6 pg (28.0-33.3); Mean Corpuscular Volume 91.4 fL (83.0-100.0); Mean Platelet Volume 9.5 fL (9.4-12.4); Monocytes # 1.3 K/mcL (0.0-1.3); Monocytes % 5.3 %; Neutrophils # 21.3 K/mcL (1.6-8.9); Nucleated Red Blood Cells 0.1 /100 WBC (0); Platelet Count 258 K/mcL (140-400); Red Blood Count 2.55 M/mcL (4.19-5.50); Red Cell Distribution Width 14.7 % (11.5-14.5)
[2017-04-08 04:47] LABS: Calcium 8.1 mg/dL (8.6-10.3); Potassium 3.7 mEq/L (3.5-5.1)
[2017-04-08] MEDS: Albuterol 2.5 MG/3 ML NEBULIZER IH SCH ×2 (05:08→10:58)
[2017-04-08] MEDS: Nicotine 21 MG PATCH.TD24 TD SCH (08:04)
[2017-04-08] MEDS: Gabapentin 300 MG CAPSULE PO SCH (08:05)
[2017-04-08] MEDS: Furosemide 20 MG/2 ML VIAL IVP SCH ×3 (08:05→20:11)
[2017-04-08] MEDS: amLODIPine 5 MG TABLET PO SCH (08:05)
[2017-04-08] MEDS: Metoprolol 100 MG TABLET PO SCH ×2 (08:05→20:10)
--- NOTE | 2017-04-08 10:24 | General Surgery Progress Note ---
<Keyla Thayer - Last Filed: 04/08/17 10:47> Date of Encounter: 04/08/17 Time of Encounter: 10:24 - Assessment and Plan (1) Acute calculous cholecystitis Current Visit: Yes Status: Acute 66 y M s/p postoperative day #10 an aortobifemoral artery bypass 2/2 PAD presenting with RUQ abdominal pain x3 days with history of previous attacks of biliary colic nature, positive for Mullins's sign on PE with U/S demonstrating significant sludge and gallbladder wall thickening measuring 7 mm, and HIDA scan concerning for acute cholecystitis -WBC slightly uptrending. -Pt s/p cholecystostomy tube placement by IR, plan for tube to likely remain in place for a few weeks. States pain has improved following procedure. --Continue Zosyn. May benefit from addition of Diflucan. -Recommend correction of electrolyte disorders, and continued control of pain (2) Acute hyponatremia Current Visit: Yes Status: Acute Management per primary team. (3) Atherosclerosis with claudication of extremity Current Visit: No Status: Chronic s/p postoperative day #10 an aortobifemoral artery bypass 2/2 PAD. Management per endovascular service. (4) DOUG (acute kidney injury) Current Visit: Yes Status: Acute Management per primary team. (5) Anemia Current Visit: Yes Status: Acute Management alongside primary and endovascular service. Qualifiers: Anemia type: other cause Other causes of anemia: acute posthemorrhagic Qualified Code(s): D62 - Acute posthemorrhagic anemia (6) CKD (chronic kidney disease), stage III Current Visit: Yes Status: Chronic Management per primary team. (7) Essential hypertension Current Visit: Yes Status: Chronic Reviewed BPs. Management per primary team. (8) Moderate protein malnutrition Current Visit: Yes Status: Chronic Management per primary team. (9) DVT prophylaxis Current Visit: Yes Status: Acute Management per primary team. (10) Tobacco abuse Current Visit: Yes Status: Chronic Management per primary team. Subjective Patient reports: feels better, pain is less, afebrile Objective Vital Signs - Last 8 Hours Temp Pulse Resp BP Pulse Ox 04/08/17 08:05 98.7 F 89 15 129/69 89 04/08/17 07:33 98.7 F 89 15 129/69 89 04/08/17 04:00 98.4 F 93 20 122/63 90 Intake and Output 04/07/17 04/08/17 04/08/17 23:59 07:59 15:59 Intake Total 110 / 110 110 / 110 350 / 350 Output Total 425 / 425 50 / 50 0 / 0 Balance -315 / -315 60 / 60 350 / 350 Intake: IV Fluids 110 / 110 110 / 110 110 / 110 Merrem 1,000 MG In Water for inj. (sterile) 10 ML @ 200 mls/ hr IVP Q8HR [facility] Rx#:[id number] Flagyl Premix 500 MG/100 ML 500 100 / 100 100 / 100 100 / 100 mg In 100 ml @ 100 mls/hr IVPB Q8HR [facility] Rx#:[id number] Oral 240 / 240 Output: Urine 425 / 425 Wound Drainage 50 / 50 0 / 0 Right Lower Abdomen 50 / 50 0 / 0 Other: Meal Breakfast Percent of Meal Consumed 10% Stool Size Moderate Stool Consistency loose # Voids 1 # Bowel Movements 1 Weight 102.512 kg Patient Weight 04/08/17 23:59 Weight 102.512 kg - General physical appearance no distress - Eyes normal ocular movement - Respiratory normal expansion, normal respiratory effort crackles: bilateral - Cardiovascular Cardiovascular exam: Absent: tachycardia Addtional Comments: +S1, S2 - Abdomen Abdomen: Present: bowel sounds present, soft, tender (mild tenderness ) Additional Comments: Abdominal binder in place. Tube drain, in RUQ, not leaking, draining. - Psychiatric oriented to time, oriented to person, oriented to place - Labs 04/08/17 03:46 04/08/17 03:46 Diabetes panel 04/08/17 Range/Units 03:46 Sodium 130 L (136-145) mEq/L Potassium 3.7 (3.5-5.1) mEq/L Chloride 103 (98-107) mEq/L Carbon Dioxide 23 (23-29) mEq/L BUN 36 H (8-23) mg/dL Creatinine 1.48 H (0.70-1.30) mg/dL Glucose 109 H (70-105) mg/dL Calcium 8.1 L (8.6-10.3) mg/dL Calcium panel 04/08/17 Range/Units 03:46 Calcium 8.1 L (8.6-10.3) mg/dL Pituitary panel 04/08/17 Range/Units 03:46 Sodium 130 L (136-145) mEq/L Potassium 3.7 (3.5-5.1) mEq/L Chloride 103 (98-107) mEq/L Carbon Dioxide 23 (23-29) mEq/L BUN 36 H (8-23) mg/dL Creatinine 1.48 H (0.70-1.30) mg/dL Glucose 109 H (70-105) mg/dL Calcium 8.1 L (8.6-10.3) mg/dL Adrenal panel 04/08/17 Range/Units 03:46 Sodium 130 L (136-145) mEq/L Potassium 3.7 (3.5-5.1) mEq/L Chloride 103 (98-107) mEq/L Carbon Dioxide 23 (23-29) mEq/L BUN 36 H (8-23) mg/dL Creatinine 1.48 H (0.70-1.30) mg/dL Glucose 109 H (70-105) mg/dL Calcium 8.1 L (8.6-10.3) mg/dL - VTE Documentation of Mechanical Device: Intermittent pneumatic compression device Consult Discharge Plan - Plan Instructions: Oxycodone/Acetaminophen (By mouth) Referrals: Kal Lugo MD [Primary Care Provider] - 04/15/17 1:15 pm Maximino Campoverde MD [Partnered Physician] - 05/07/17 1:00 pm Sy Bryan MD [Partnered Physician] - 05/06/17 3:35 pm Prescriptions: OxyCODONE/APAP 5/325 [Percocet 5/325 MG] 1 each PO Q6HR PRN #25 tablet PRN Reason: postoperative pain <Sy Bryan - Last Filed: 04/09/17 10:02> Date of Encounter: 04/08/17 - Assessment and Plan (1) Acute cholecystitis Current Visit: Yes Status: Acute (2) Leukocytosis Current Visit: Yes Status: Acute Qualifiers: Leukocytosis type: lymphocytosis Qualified Code(s): D72.820 - Lymphocytosis (symptomatic) Objective Vital Signs - Last 8 Hours Temp Pulse Resp BP Pulse Ox 04/09/17 07:25 99.0 F 90 18 139/74 93 04/09/17 04:31 98.5 F 87 19 132/77 88 04/09/17 03:54 18 87 Intake and Output 04/08/17 04/09/17 04/09/17 23:59 07:59 15:59 Intake Total 610 / 610 740 / 740 Output Total 515 / 515 445 / 445 Balance 295 / 295 Intake: IV Fluids 260 / 260 Merrem 1,000 MG In Water for inj. (sterile) 10 ML @ 200 mls/ hr IVP Q8HR [facility] Rx#:[id number] Vancocin 1,000 MG In Dextrose 5 250 / 250 % 250 ML @ 167 mls/hr IVPB Q12H [facility] Rx#:[id number] Oral 0 / 0 480 / 480 Blood Product 600 / 600 Rbcs Leuko Poor As-1 Irr Unit 600 / 600 [id number] Output: Urine 500 / 500 350 / 350 Wound Drainage Right Lower Abdomen Other: Meal Dinner Percent of Meal Consumed 0% Weight 102.569 kg Patient Weight 04/09/17 23:59 Weight 102.569 kg - Labs 04/09/17 05:33 04/09/17 05:33 Diabetes panel 04/09/17 Range/Units 05:33 Sodium 132 L (136-145) mEq/L Potassium 3.5 (3.5-5.1) mEq/L Chloride 102 (98-107) mEq/L Carbon Dioxide 24 (23-29) mEq/L BUN 35 H (8-23) mg/dL Creatinine 1.35 H (0.70-1.30) mg/dL Glucose 126 H (70-105) mg/dL Calcium 8.2 L (8.6-10.3) mg/dL Calcium panel 04/09/17 Range/Units 05:33 Calcium 8.2 L (8.6-10.3) mg/dL Pituitary panel 04/09/17 Range/Units 05:33 Sodium 132 L (136-145) mEq/L Potassium 3.5 (3.5-5.1) mEq/L Chloride 102 (98-107) mEq/L Carbon Dioxide 24 (23-29) mEq/L BUN 35 H (8-23) mg/dL Creatinine 1.35 H (0.70-1.30) mg/dL Glucose 126 H (70-105) mg/dL Calcium 8.2 L (8.6-10.3) mg/dL Adrenal panel 04/09/17 Range/Units 05:33 Sodium 132 L (136-145) mEq/L Potassium 3.5 (3.5-5.1) mEq/L Chloride 102 (98-107) mEq/L Carbon Dioxide 24 (23-29) mEq/L BUN 35 H (8-23) mg/dL Creatinine 1.35 H (0.70-1.30) mg/dL Glucose 126 H (70-105) mg/dL Calcium 8.2 L (8.6-10.3) mg/dL - Attending Attestation I examined this patient and my medical decision-making was reviewed with the Resident Physician. I agree with the documented findings, disposition and treatment plan as described except to the extent set forth below. I reviewed the above assessment and evaluation and agree with the above plan. Discussed with Dr. Campoverde; will start Diflucan today.
--- NOTE | 2017-04-08 14:28 | Internal Med Progress Note ---
Date of Encounter: 04/08/17 Time of Encounter: 14:28 - Assessment and plan (1) Acute hyponatremia Current Visit: Yes Status: Acute Assessment and plan: Sodium stable at 130 today. Clinically hypervolemic hyponatremia.. Continue with fluid restriction of 1200 mL daily. Continue with IV Lasix. (2) Acute respiratory failure with hypoxia Current Visit: Yes Status: Acute Assessment and plan: Chest x-ray shows pulmonary edema and bibasilar atelectasis. Lasix 20 mg IV 3 times a day. Monitor strict I's and O's, kidney function and oxygen requirements. Incentive spirometry. Out of bed for meals. (3) Acute cholecystitis Current Visit: Yes Status: Acute Assessment and plan: Status post cholecystostomy tube placement yesterday. Appreciate general surgery recommendations. Previously treated with Zosyn and vancomycin for 3 days, switched to meropenem and Flagyl yesterday. MAXIMUM TEMPERATURE was 101.2 over the last 48 hours prior to cholecystostomy. He has been afebrile since. WBC continues to rise today to 24. Patient has been afebrile over the last 24 hours. I will restart vancomycin, dose according to levels. We will stop Flagyl due to adequate coverage for anaerobes with meropenem. Patient reports diarrhea. We will obtain stool C. difficile toxin to evaluate given the rise in WBC. (4) CAD in [place] artery Current Visit: Yes Status: Chronic Assessment and plan: Restart Plavix. Continue with aspirin and metoprolol and Lipitor. (5) Acute blood loss anemia Current Visit: Yes Status: Acute Assessment and plan: from surgery. Monitor daily. We will transfuse 1 unit PRBC today. Goal to maintain hemoglobin above 8. (6) CKD (chronic kidney disease), stage III Current Visit: Yes Status: Chronic Assessment and plan: Avoid nephrotoxins. - Subjective Interval history: He reports severe generalized weakness when he gets out of bed can walk to the bathroom before getting exhausted. Abdominal pain continues to improve, now 0/10 at rest. Denies nausea or vomiting. He does report watery diarrhea today. - Constitutional Vitals: Temp Pulse Resp BP Pulse Ox 97.9 F 89 15 135/68 90 04/08/17 12:40 04/08/17 12:40 04/08/17 12:40 04/08/17 12:40 04/08/17 12:40 General appearance: Present: cooperative, A&O X 3, pleasant, no acute distress, obese, answers questions appropriately - Eye Eye exam: Present: PERRL, conjuntiva pink, sclera anicteric Pupils: Present: PERRL - Respiratory Respiratory exam: Present: CTAB. Absent: accessory muscle use, rales, rhonchi, wheezes - Cardiovascular Cardiovascular exam: Present: RRR, +S1, +S2. Absent: diastolic murmur, gallop, rubs, systolic murmur - GI/Abdominal GI/Abdominal exam: Present: normal bowel sounds, soft, no peritoneal signs. Absent: distended, tenderness Additional comments: Abdominal binder present, blood soaking the binder from the surgical incision. There is an external biliary drain in place. - Skin Skin exam: Present: dry, intact Internal Medicine: Result - Labs CBC & Chem 7: 04/08/17 03:46 04/08/17 03:46 Labs: Short CBC 04/08/17 Range/Units 03:46 WBC 24.5 H (4.3-11.1) K/mcL Hgb 7.8 L (12.9-16.9) g/dL Hct 23.3 L (37.5-50.1) % Plt Count 258 (140-400) K/mcL Neutrophils # 21.3 H (1.6-8.9) K/mcL BMP 04/08/17 03:46 Sodium 130 L Potassium 3.7 Chloride 103 Carbon Dioxide 23 BUN 36 H Creatinine 1.48 H Glucose 109 H Calcium 8.1 L - ABG Interpretation ABG results: ABG ABG pH 7.34 pH Units (7.32-7.45) 03/30/17 03:48 ABG pCO2 38 mmHg (35-45) 03/30/17 03:48 ABG pO2 63 mmHg (85-104) L 03/30/17 03:48 ABG O2 Saturation 90 % (95-98) L 03/30/17 03:48 PT/INR, D-dimer PT 13.3 Seconds (9.4-12.1) H 04/06/17 03:22 - Impressions Impressions Liver Abscess Drainage CT 04/06/17 00:00 IMPRESSION: CT-guided cholecystostomy tube placement performed. D/ / Fernandez Cobos MD / Fernandez Cobos MD Interpreting Provider: Fernandez Cobos MD - VTE Documentation of Mechanical Device: Intermittent pneumatic compression device Consult Discharge Plan - Plan Instructions: Oxycodone/Acetaminophen (By mouth) Referrals: Kal Lugo MD [Primary Care Provider] - 04/15/17 1:15 pm Sy Bryan MD [Partnered Physician] - 05/06/17 3:35 pm Maximino Campoverde MD [Partnered Physician] - 05/07/17 1:00 pm Prescriptions: OxyCODONE/APAP 5/325 [Percocet 5/325 MG] 1 each PO Q6HR PRN #25 tablet PRN Reason: postoperative pain
[2017-04-08] MEDS ORDERED: Vancomycin 1,500 MG in D5% in Water 250 ML IVPB SCH (15:00)
[2017-04-08] MEDS: Ipratropium/Albuterol Neb 3 ML IH SCH ×2 (15:58→21:54)
[2017-04-08] MEDS ORDERED: Albuterol 2.5 MG/3 ML NEBULIZER IH PRN (16:00)
[2017-04-08] MEDS ORDERED: 0.9 % Sodium Chloride 250 ML ONE (16:04)
[2017-04-08] MEDS ORDERED: Vancomycin 1,000 MG in D5% in Water 250 ML IVPB SCH (16:30)
[2017-04-08] MEDS: Aspirin 81 MG TAB.CHEW PO SCH (17:00)
[2017-04-08] MEDS: *HR* HYDROcodone/Acet 5/325 mg TABLET PO PRN (20:11)
[2017-04-08] MEDS: Vancomycin 1,000 MG in D5% in Water 250 ML IVPB SCH (20:11)
--- NOTE | 2017-04-08 23:26 | Vascular/[facility] Progress Note ---
Date of Encounter: 04/08/17 Time of Encounter: 13:30 - Assessment and plan (1) Atherosclerosis of both lower extremities with rest pain Current Visit: Yes Status: Chronic The patient is postoperative day #10 after an aortobifemoral artery bypass. He is healing well and has no acute vascular problems. Qualifiers: Peripheral atherosclerosis artery type: [place] artery Qualified Code(s): I70.223 - Atherosclerosis of [place] arteries of extremities with rest pain, bilateral legs (2) Acute cholecystitis Current Visit: Yes Status: Acute He remains on antibiotics. Vancomycin started and Flagyl discontinued. He is afebrile. His WBC have increased. His cholecystostomy tube remains in place. Recheck CBC tomorrow. (3) Essential hypertension Current Visit: Yes Status: Chronic (4) Mixed hyperlipidemia Current Visit: Yes Status: Chronic (5) CAD in [place] artery Current Visit: Yes Status: Chronic (6) Acute blood loss anemia Current Visit: Yes Status: Acute The patient has acute expected postoperative blood loss anemia. He is hemodynamically stable without evidence of ongoing blood loss. He will receive 1 unit of PRBCs today. (7) CKD (chronic kidney disease), stage III Current Visit: Yes Status: Chronic The patient has chronic kidney disease stage III. He continues to make urine. His creatinine is stable. He is hyponatremic. He is now on fluid restriction and is receiving lasix. (8) Tobacco abuse Current Visit: Yes Status: Chronic (9) Moderate protein malnutrition Current Visit: Yes Status: Chronic - Subjective Interval history: He remains afebrile. He remains comfortable and continues to tolerate his diet. He denies any abdominal, flank or back pain. He reports diarrhea. He denies chest pain or shortness of breath. Vital Signs, Last 4 Hours Temp Pulse Resp BP Pulse Ox 04/08/17 21:57 18 87 04/08/17 20:15 99.3 F 103 22 134/72 94 - Physical Examination General: Present: Conversant, No Apparent Distress Cardiac: Present: Reg Rate and Rhythm Lungs: Present: Normal Breath Sounds Neuro: Present: Alert and responsive Vascular: Present: Normal capillary refill, Surgical incisions (clean, dry and intact without erythema or drainage). Absent: Cyanosis Abdomen: Present: Soft, Non-tender, Other (bilious fluid in drain) Skin: Present: No rashes noted on visualized skin - VTE Documentation of Mechanical Device: Intermittent pneumatic compression device Results 04/08/17 03:46 04/08/17 03:46 Lab Results, Last 24 hours 04/08/17 04/08/17 03:46 03:46 WBC 24.5 H Hgb 7.8 L Hct 23.3 L Plt Count 258 Sodium 130 L Potassium 3.7 Chloride 103 Carbon Dioxide 23 BUN 36 H Creatinine 1.48 H Glucose 109 H Calcium 8.1 L Consult Discharge Plan - Plan Instructions: Oxycodone/Acetaminophen (By mouth) Referrals: Kal Lugo MD [Primary Care Provider] - 04/15/17 1:15 pm Sy Bryan MD [Partnered Physician] - 05/06/17 3:35 pm Maximino Campoverde MD [Partnered Physician] - 05/07/17 1:00 pm Prescriptions: OxyCODONE/APAP 5/325 [Percocet 5/325 MG] 1 each PO Q6HR PRN #25 tablet PRN Reason: postoperative pain
[2017-04-09] MEDS: Meropenem 1,000 MG in Water for inj. (sterile) 20 ML 10 ML IVP SCH ×3 (00:10→15:49)
[2017-04-09] MEDS: Ipratropium/Albuterol Neb 3 ML IH SCH ×4 (03:53→22:33)
[2017-04-09 06:17] LABS: Basophils % 0.1 %; Eosinophils # 0.4 K/mcL (0.0-0.6); Eosinophils % 1.8 %; Hematocrit 27.6 % (37.5-50.1); Hemoglobin 9.2 g/dL (12.9-16.9); Immature Granulocytes % 3.6 % (0-4); Lymphocytes # 0.8 K/mcL (0.6-4.6); Lymphocytes % 3.8 %; Mean Corpuscular HGB Conc 33.3 g/dL (31.6-35.5); Mean Corpuscular Hemoglobin 29.9 pg (28.0-33.3); Mean Corpuscular Volume 89.6 fL (83.0-100.0); Mean Platelet Volume 9.7 fL (9.4-12.4); Monocytes # 1.1 K/mcL (0.0-1.3); Monocytes % 5.3 %; Neutrophils # 18.3 K/mcL (1.6-8.9); Nucleated Red Blood Cells 0.1 /100 WBC (0); Platelet Count 306 K/mcL (140-400); Red Blood Count 3.08 M/mcL (4.19-5.50); Red Cell Distribution Width 15.8 % (11.5-14.5); Segmented Neutrophils % 85.4 %
[2017-04-09 06:33] LABS: BUN/Creatinine Ratio 26 (6-26); Blood Urea Nitrogen 35 mg/dL (8-23); Calcium 8.2 mg/dL (8.6-10.3); Carbon Dioxide 24 mEq/L (23-29); Chloride 102 mEq/L (98-107); Glucose 126 mg/dL (70-105); Osmolality,Calculated 284 (280-300); Potassium 3.5 mEq/L (3.5-5.1); Sodium 132 mEq/L (136-145); eGFR For African Americans > 60 (> 60); eGFR For Non-African Americans 53 (> 60)
[2017-04-09] MEDS: Vancomycin 1,000 MG in D5% in Water 250 ML IVPB SCH ×2 (07:37→19:08)
[2017-04-09] MEDS: Gabapentin 300 MG CAPSULE PO SCH (07:52)
[2017-04-09] MEDS: Metoprolol 100 MG TABLET PO SCH ×2 (07:52→20:26)
[2017-04-09] MEDS: Furosemide 20 MG/2 ML VIAL IVP SCH ×3 (07:52→20:26)
[2017-04-09] MEDS: amLODIPine 5 MG TABLET PO SCH (07:52)
[2017-04-09] MEDS: Nicotine 21 MG PATCH.TD24 TD SCH (07:52)
[2017-04-09] MEDS: Fluconazole 200 MG/100 ML 200 MG/100 ML BAG IVPB SCH (07:53)
--- NOTE | 2017-04-09 08:40 | Procedure Note ---
Date of procedure: 04/09/17 Pre-op diagnosis: Peripheral vascular disease with ulceration Post-op diagnosis: same Procedure: Angiogram with left lower extremity selective imaging via right common femoral artery with 4 english sheath. Direct pressure for hemostasis. Anesthesia: local Surgeon: Maximino Campoverde Was there an assistant women's rowing coach present: No Estimated blood loss (cc): 1 Specimen: None Pathology: none sent Condition: stable (no complications) Disposition: other (research laboratory technician holding, then to floor)
[2017-04-09] MEDS: Ondansetron 4 MG/2 ML VIAL IVP PRN (08:44)
--- NOTE | 2017-04-09 09:33 | General Surgery Progress Note ---
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 Ultrasound demonstrating significant sludge and gallbladder wall thickening measuring 7 mm, Hida scan concerning for acute cholecystitis, he is s /P cholecystostomy tube placement by IR on 04/06/2017 with notable dark bile returned during procedure. Diflucan day 2/7 (400 mg 04/08 and then 200 mg thereafter) Flagyl Day 3/14 Merrem day 3 Vanc (adm 03/28/17, stopped, then restarted 04/03/17) day 6 Zosyn day 6 Cefazolin (preop on 03/28/17) Pt reports he is feeling some improvement. Denies appetite, but states abdominal discomfort has improved. He is passing flatus and having bowel movements. He is tolerating cardiac diet without nausea or vomiting. His cholecystostomy tube is in place and is noted to have a small amount of bilious drainage. He denies pain at the insertion site. His WBC is downtrending. Plan: cholecystostomy tube to remain in place for approximately 6 weeks. Interval follow-up in the office with Dr. Bryan in aprox 4 weeks. Continue IV ATBX Recommend repeat am labs Fluid status, anticoagulation, and diet management per primary service We will continue to follow along with you while he is in the hospital. d/c planning per primary service (may transition ATBX to p.o. as indicated) (2) Leukocytosis Current Visit: Yes Status: Acute See A/P above Qualifiers: Leukocytosis type: lymphocytosis Qualified Code(s): D72.820 - Lymphocytosis (symptomatic) Subjective Patient reports: no new complaints, feels better, still having pain, pain is less, tolerating liquids well, voiding w/o difficulty, flatus, bowel movement, afebrile Objective Vital Signs - Last 8 Hours Temp Pulse Resp BP Pulse Ox 04/09/17 07:25 99.0 F 90 18 139/74 93 04/09/17 04:31 98.5 F 87 19 132/77 88 04/09/17 03:54 18 87 Intake and Output 04/08/17 04/09/17 04/09/17 23:59 07:59 15:59 Intake Total 610 / 610 740 / 740 Output Total 515 / 515 445 / 445 Balance 295 / 295 Intake: IV Fluids 260 / 260 Merrem 1,000 MG In Water for inj. (sterile) 10 ML @ 200 mls/ hr IVP Q8HR [facility] Rx#:[id number] Vancocin 1,000 MG In Dextrose 5 250 / 250 % 250 ML @ 167 mls/hr IVPB Q12H [facility] Rx#:[id number] Oral 0 / 0 480 / 480 Blood Product 600 / 600 Rbcs Leuko Poor As-1 Irr Unit 600 / 600 [id number] Output: Urine 500 / 500 350 / 350 Wound Drainage Right Lower Abdomen Other: Meal Dinner Percent of Meal Consumed 0% Weight 102.569 kg Patient Weight 04/09/17 23:59 Weight 102.569 kg - General physical appearance well nourished, no distress, other (Sitting upright in bed in room) - Eyes normal ocular movement - ENT normal nares, normal mucosa, atraumatic, normocephalic - Neck Neck exam: trachea midline, no venous distension - Respiratory other (Decreased breath sounds. Noted O2 per nasal cannula) - Cardiovascular Cardiovascular exam: Present: RRR - Abdomen Abdomen: Present: bowel sounds present, soft, tender, wound (Right cholecystostomy tube WNL. Small amount of bilious drainage noted) Abdominal Tenderness: RLQ Hernia: none - Integumentary no growths, no abnormal pigmentation - Neurologic normal coordination, normal sensation - Musculoskeletal normal gait, normal posture - Psychiatric oriented to time, oriented to person, oriented to place, speech is normal, memory intact - Labs 04/09/17 05:33 04/09/17 05:33 Diabetes panel 04/09/17 Range/Units 05:33 Sodium 132 L (136-145) mEq/L Potassium 3.5 (3.5-5.1) mEq/L Chloride 102 (98-107) mEq/L Carbon Dioxide 24 (23-29) mEq/L BUN 35 H (8-23) mg/dL Creatinine 1.35 H (0.70-1.30) mg/dL Glucose 126 H (70-105) mg/dL Calcium 8.2 L (8.6-10.3) mg/dL Calcium panel 04/09/17 Range/Units 05:33 Calcium 8.2 L (8.6-10.3) mg/dL Pituitary panel 04/09/17 Range/Units 05:33 Sodium 132 L (136-145) mEq/L Potassium 3.5 (3.5-5.1) mEq/L Chloride 102 (98-107) mEq/L Carbon Dioxide 24 (23-29) mEq/L BUN 35 H (8-23) mg/dL Creatinine 1.35 H (0.70-1.30) mg/dL Glucose 126 H (70-105) mg/dL Calcium 8.2 L (8.6-10.3) mg/dL Adrenal panel 04/09/17 Range/Units 05:33 Sodium 132 L (136-145) mEq/L Potassium 3.5 (3.5-5.1) mEq/L Chloride 102 (98-107) mEq/L Carbon Dioxide 24 (23-29) mEq/L BUN 35 H (8-23) mg/dL Creatinine 1.35 H (0.70-1.30) mg/dL Glucose 126 H (70-105) mg/dL Calcium 8.2 L (8.6-10.3) mg/dL - VTE Documentation of Mechanical Device: Intermittent pneumatic compression device Consult Discharge Plan - Plan Instructions: Oxycodone/Acetaminophen (By mouth) Additional Instructions: Cholecystostomy Tube Care: 1. do not let the drain dangle from your body. Suspend on a lanyard or secured to clothing with the safety pin. 2. Remove dressing and showers/wash with antibacterial soap daily. Pat dry. 3. Place a drain sponge or split 4 x 4 gauze around the drain site. Tape to secure. 4. Do not flush the drain towards the body. If the drain needs flushed, turn the stopcock to off to the patient and you may flushed the tube with 10 mL of normal saline. 5. Record the output from the drain at least once daily. BRING this drainage recording to your follow-up appointment. Referrals: Kal Lugo MD [Primary Care Provider] - 04/15/17 1:15 pm Sy Bryan MD [Partnered Physician] - 05/06/17 3:35 pm Maximino Campoverde MD [Partnered Physician] - 05/07/17 1:00 pm Prescriptions: OxyCODONE/APAP 5/325 [Percocet 5/325 MG] 1 each PO Q6HR PRN #25 tablet PRN Reason: postoperative pain Adhesive Tape [Paper Tape] 1 each TP AD #1 tape Polyquaternium-6/Gauze Bandage [Bioguard Gauze 4"X4" Sponge] 1 each TP AD #60 bandage
--- NOTE | 2017-04-09 12:33 | Internal Med Progress Note ---
Date of Encounter: 04/09/17 Time of Encounter: 12:33 - Subjective Interval history: Interval history: At postoperative day 12 s/p aortofemoral bypass bypass. A&O x3 and not complaining of significant pain or distress but still no appetite, but denes N/V. Physical Exam: See below Assessment and plan: Acute calculous cholecystitis S/P cholecystostomy tube placement by IR on 04/06/2017. Per surgery the cholecystostomy tube is to remain in place for approximately 6 weeks with follow-up with Dr. Bryan in 4 weeks Antibiotics recommended as follows; Diflucan day 2/7 (400 mg 04/08 and then 200 mg thereafter) Flagyl Day 3/14 Merrem day 3 Vanc (adm 03/28/17, stopped, then restarted 04/03/17) Antibiotics will need transitioned to PO prior to d/c home Atherosclerosis of both lower extremities with rest pain The patient is postoperative day #12 after an aortobifemoral artery bypass. He is healing well and has no acute vascular problems per vascular surgery note. Continue aspirin, Plavix and statin HTN: Continue current meds Dyslipidemia: Continue statin - Constitutional Vitals: Temp Pulse Resp BP Pulse Ox 98.4 F 85 18 126/68 92 04/09/17 11:51 04/09/17 11:51 04/09/17 11:51 04/09/17 11:51 04/09/17 11:51 General appearance: Present: cooperative, A&O X 3, pleasant, no acute distress, answers questions appropriately - Head Head exam: Present: atraumatic, normocephalic - Eye Eye exam: Present: EOMI, PERRL, conjuntiva pink, sclera anicteric Pupils: Present: PERRL - Neck Neck exam general surgery: Present: normal inspection, supple, trachea midline. Absent: lymphadenopathy, nuchal rigidity, thyromegaly - Respiratory Respiratory exam: Present: decreased breath sounds. Absent: accessory muscle use, rales, respiratory distress, rhonchi, stridor, wheezes Additional comments: LCTAB but decreased at bases and still requiring HF-O2. - Cardiovascular Cardiovascular exam: Present: RRR, +S1, +S2. Absent: diastolic murmur, gallop, rubs, systolic murmur - GI/Abdominal GI/Abdominal exam: Present: guarding, normal bowel sounds, soft, no peritoneal signs. Absent: distended, rebound, rigid, tenderness - Extremities Exam Extremities exam: Present: warm, radial pulses palpable and symmetrical. Absent : calf tenderness, cyanotic, pedal edema - Expanded Lower Extremities Exam Ankle exam: Present: swelling - Neurological Exam Neurological exam: Present: CN II-XII intact, oriented X3, no focal deficits. Absent: pronater drift, facial droop, speech deficit - Skin Skin exam: Present: dry, intact Internal Medicine: Result - Labs CBC & Chem 7: 04/09/17 05:33 04/09/17 05:33 Labs: Short CBC 04/09/17 Range/Units 05:33 WBC 21.5 H (4.3-11.1) K/mcL Hgb 9.2 L (12.9-16.9) g/dL Hct 27.6 L (37.5-50.1) % Plt Count 306 (140-400) K/mcL Neutrophils # 18.3 H (1.6-8.9) K/mcL BMP 04/09/17 05:33 Sodium 132 L Potassium 3.5 Chloride 102 Carbon Dioxide 24 BUN 35 H Creatinine 1.35 H Glucose 126 H Calcium 8.2 L - ABG Interpretation ABG results: ABG ABG pH 7.34 pH Units (7.32-7.45) 03/30/17 03:48 ABG pCO2 38 mmHg (35-45) 03/30/17 03:48 ABG pO2 63 mmHg (85-104) L 03/30/17 03:48 ABG O2 Saturation 90 % (95-98) L 03/30/17 03:48 PT/INR, D-dimer PT 13.3 Seconds (9.4-12.1) H 04/06/17 03:22 - VTE Documentation of Mechanical Device: Intermittent pneumatic compression device Consult Discharge Plan - Plan Instructions: Oxycodone/Acetaminophen (By mouth) Additional Instructions: Cholecystostomy Tube Care: 1. do not let the drain dangle from your body. Suspend on a lanyard or secured to clothing with the safety pin. 2. Remove dressing and showers/wash with antibacterial soap daily. Pat dry. 3. Place a drain sponge or split 4 x 4 gauze around the drain site. Tape to secure. 4. Do not flush the drain towards the body. If the drain needs flushed, turn the stopcock to off to the patient and you may flushed the tube with 10 mL of normal saline. 5. Record the output from the drain at least once daily. BRING this drainage recording to your follow-up appointment. Referrals: Kal Lugo MD [Primary Care Provider] - 04/15/17 1:15 pm Sy Bryan MD [Partnered Physician] - 05/06/17 3:35 pm Maximino Campoverde MD [Partnered Physician] - 05/07/17 1:00 pm Prescriptions: OxyCODONE/APAP 5/325 [Percocet 5/325 MG] 1 each PO Q6HR PRN #25 tablet PRN Reason: postoperative pain Adhesive Tape [Paper Tape] 1 each TP AD #1 tape Polyquaternium-6/Gauze Bandage [Bioguard Gauze 4"X4" Sponge] 1 each TP AD #60 bandage
[2017-04-09] MEDS: Aspirin 81 MG TAB.CHEW PO SCH (17:04)
--- NOTE | 2017-04-09 23:49 | Vascular/[facility] Progress Note ---
Date of Encounter: 04/09/17 Time of Encounter: 10:40 - Assessment and plan (1) Atherosclerosis of both lower extremities with rest pain Current Visit: Yes Status: Chronic The patient is postoperative day #12 after an aortobifemoral artery bypass. He is tolerating a diet and his feet are warm. His incisions are healing well. Qualifiers: Peripheral atherosclerosis artery type: [place] artery Qualified Code(s): I70.223 - Atherosclerosis of [place] arteries of extremities with rest pain, bilateral legs (2) Essential hypertension Current Visit: Yes Status: Chronic (3) Mixed hyperlipidemia Current Visit: Yes Status: Chronic (4) CAD in [place] artery Current Visit: Yes Status: Chronic (5) Acute blood loss anemia Current Visit: Yes Status: Acute Hemoglobin stable after transfusion. (6) CKD (chronic kidney disease), stage III Current Visit: Yes Status: Chronic Creatinine stable (7) Tobacco abuse Current Visit: Yes Status: Chronic Will start nicotine patch. Smoking cessation discussed. (8) Moderate protein malnutrition Current Visit: Yes Status: Chronic Continue with nutritional shakes. (9) Acute cholecystitis Current Visit: Yes Status: Acute Cholecystostomy tube in place. Patient has been afebrile. WBC has decreased today. Recheck labs tomorrow. - Subjective Interval history: The patient is comfortable and without complaints. He is tolerating his diet, but does not have much of an appetitie. He denies fevers, chills, chest pain and shortness of breath. Vital Signs, Last 4 Hours Temp Pulse Resp BP Pulse Ox 04/09/17 23:41 98.6 F 81 17 121/73 92 04/09/17 22:34 18 92 - Physical Examination General: Present: Conversant, No Apparent Distress HEENT: Present: Normocephaly Cardiac: Present: Reg Rate and Rhythm Lungs: Present: Normal Breath Sounds Neuro: Present: Alert and responsive, No focal deficits noted Vascular: Present: Normal capillary refill, Surgical incisions (healing well). Absent: Cyanosis, Edema Abdomen: Present: Soft, Non-tender - VTE Documentation of Mechanical Device: Intermittent pneumatic compression device Results 04/09/17 05:33 04/09/17 05:33 Lab Results, Last 24 hours 04/09/17 04/09/17 05:33 05:33 WBC 21.5 H Hgb 9.2 L Hct 27.6 L Plt Count 306 Sodium 132 L Potassium 3.5 Chloride 102 Carbon Dioxide 24 BUN 35 H Creatinine 1.35 H Glucose 126 H Calcium 8.2 L Consult Discharge Plan - Plan Instructions: Oxycodone/Acetaminophen (By mouth) Additional Instructions: Cholecystostomy Tube Care: 1. do not let the drain dangle from your body. Suspend on a lanyard or secured to clothing with the safety pin. 2. Remove dressing and showers/wash with antibacterial soap daily. Pat dry. 3. Place a drain sponge or split 4 x 4 gauze around the drain site. Tape to secure. 4. Do not flush the drain towards the body. If the drain needs flushed, turn the stopcock to off to the patient and you may flushed the tube with 10 mL of normal saline. 5. Record the output from the drain at least once daily. BRING this drainage recording to your follow-up appointment. Referrals: Kal Lugo MD [Primary Care Provider] - 04/15/17 1:15 pm Sy Bryan MD [Partnered Physician] - 05/06/17 3:35 pm Maximino Campoverde MD [Partnered Physician] - 05/07/17 1:00 pm Prescriptions: OxyCODONE/APAP 5/325 [Percocet 5/325 MG] 1 each PO Q6HR PRN #25 tablet PRN Reason: postoperative pain Adhesive Tape [Paper Tape] 1 each TP AD #1 tape Polyquaternium-6/Gauze Bandage [Bioguard Gauze 4"X4" Sponge] 1 each TP AD #60 bandage
[2017-04-10] MEDS: Meropenem 1,000 MG in Water for inj. (sterile) 20 ML 10 ML IVP SCH ×3 (00:16→15:25)
[2017-04-10] MEDS: Ipratropium/Albuterol Neb 3 ML IH SCH ×4 (04:57→22:16)
[2017-04-10 06:23] LABS: Basophils % 0.1 %; Eosinophils # 0.3 K/mcL (0.0-0.6); Eosinophils % 1.7 %; Hemoglobin 9.5 g/dL (12.9-16.9); Immature Granulocytes % 2.5 % (0-4); Lymphocytes % 5.4 %; Mean Corpuscular HGB Conc 33.9 g/dL (31.6-35.5); Mean Corpuscular Hemoglobin 30.2 pg (28.0-33.3); Mean Corpuscular Volume 88.9 fL (83.0-100.0); Mean Platelet Volume 9.2 fL (9.4-12.4); Monocytes # 1.1 K/mcL (0.0-1.3); Monocytes % 5.8 %; Neutrophils # 15.4 K/mcL (1.6-8.9); Nucleated Red Blood Cells 0.2 /100 WBC (0); Platelet Count 335 K/mcL (140-400); Red Blood Count 3.15 M/mcL (4.19-5.50); Red Cell Distribution Width 15.9 % (11.5-14.5); Segmented Neutrophils % 84.5 %
[2017-04-10 06:53] LABS: Alanine Aminotransferase 21 Units/L (7-52); Albumin 2.3 g/dL (3.5-5.7); Albumin/Globulin Ratio 0.8 (1.1-2.2); Alkaline Phosphatase 191 Units/L (34-104); Aspartate Amino Transferase 29 Units/L (13-39); BUN/Creatinine Ratio 27 (6-26); Bilirubin,Direct 0.4 mg/dL (0.0-0.2); Bilirubin,Indirect 0.6 mg/dL (0.0-1.2); Blood Urea Nitrogen 35 mg/dL (8-23); Calcium 8.2 mg/dL (8.6-10.3); Carbon Dioxide 23 mEq/L (23-29); Chloride 103 mEq/L (98-107); Globulin 2.8 g/dL (2.4-3.5); Glucose 109 mg/dL (70-105); Osmolality,Calculated 285 (280-300); Potassium 3.5 mEq/L (3.5-5.1); Sodium 133 mEq/L (136-145); Total Protein 5.1 g/dL (6.4-8.9); eGFR For African Americans > 60 (> 60); eGFR For Non-African Americans 54 (> 60)
[2017-04-10] MEDS: Gabapentin 300 MG CAPSULE PO SCH (07:56)
[2017-04-10] MEDS: Metoprolol 100 MG TABLET PO SCH ×2 (07:56→21:18)
[2017-04-10] MEDS: amLODIPine 5 MG TABLET PO SCH (07:56)
[2017-04-10] MEDS: Vancomycin 1,000 MG in D5% in Water 250 ML IVPB SCH (07:57)
[2017-04-10] MEDS: Furosemide 20 MG/2 ML VIAL IVP SCH (07:57)
[2017-04-10] MEDS: Nicotine 21 MG PATCH.TD24 TD SCH (07:58)
[2017-04-10] MEDS: *HR* HYDROcodone/Acet 5/325 mg TABLET PO PRN (07:59)
--- NOTE | 2017-04-10 09:07 | Vascular/[facility] Progress Note ---
Date of Encounter: 04/10/17 Time of Encounter: 08:30 - Assessment and plan (1) CKD (chronic kidney disease), stage III Current Visit: Yes Status: Chronic The patient has a history of chronic kidney disease. He has mild elevation of his BUN and creatinine on his labs this morning. (2) Tobacco abuse Current Visit: Yes Status: Chronic The patient's history of tobacco abuse. (3) Atherosclerosis of both lower extremities with rest pain Current Visit: Yes Status: Chronic Patent aortobifemoral bypass graft. Patient has bilateral lower extremity edema. Qualifiers: Peripheral atherosclerosis artery type: [place] artery Qualified Code(s): I70.223 - Atherosclerosis of [place] arteries of extremities with rest pain, bilateral legs (4) Acute blood loss anemia Current Visit: Yes Status: Acute Patient has acute blood loss anemia following surgery. (5) CHF (congestive heart failure) Current Visit: Yes Status: Chronic Patient has history of congestive heart failure and is treated with MARY inhibitor, beta craig, and calcium channel craig. Qualifiers: Congestive heart failure type: diastolic Congestive heart failure chronicity: chronic Qualified Code(s): I50.32 - Chronic diastolic (congestive ) heart failure - Subjective Interval history: The patient is postoperative day #13 following aortobifemoral bypass graft. He had an uneventful night. He has no new complaints today. His right upper quadrant pain has resolved since placement of the cholecystostomy tube. He otherwise is feeling well. He has had no difficulties tolerating a diet. Vital Signs, Last 4 Hours Temp Pulse Resp BP Pulse Ox 04/10/17 08:33 90 04/10/17 08:11 98.6 F 93 20 137/79 94 - Physical Examination General: Present: Conversant, No Apparent Distress HEENT: Present: Atraumatic Abdomen: Present: Soft, Other (Patient has a cholecystostomy tube in the right upper quadrant. It is draining greenish brown bilious fluid.) Skin: Present: No rashes noted on visualized skin - VTE Documentation of Mechanical Device: Intermittent pneumatic compression device Results 04/10/17 05:52 04/10/17 05:52 Lab Results, Last 24 hours 04/10/17 04/10/17 05:52 05:52 WBC 18.2 H Hgb 9.5 L Hct 28.0 L Plt Count 335 Sodium 133 L Potassium 3.5 Chloride 103 Carbon Dioxide 23 BUN 35 H Creatinine 1.32 H Glucose 109 H Calcium 8.2 L Total Bilirubin 1.0 AST 29 ALT 21 Alkaline Phosphatase 191 H Consult Discharge Plan - Plan Instructions: Oxycodone/Acetaminophen (By mouth) Additional Instructions: Cholecystostomy Tube Care: 1. do not let the drain dangle from your body. Suspend on a lanyard or secured to clothing with the safety pin. 2. Remove dressing and showers/wash with antibacterial soap daily. Pat dry. 3. Place a drain sponge or split 4 x 4 gauze around the drain site. Tape to secure. 4. Do not flush the drain towards the body. If the drain needs flushed, turn the stopcock to off to the patient and you may flushed the tube with 10 mL of normal saline. 5. Record the output from the drain at least once daily. BRING this drainage recording to your follow-up appointment. Referrals: Kal Lugo MD [Primary Care Provider] - 04/15/17 1:15 pm Sy Bryan MD [Partnered Physician] - 05/06/17 3:35 pm Maximino Campoverde MD [Partnered Physician] - 05/07/17 1:00 pm Prescriptions: OxyCODONE/APAP 5/325 [Percocet 5/325 MG] 1 each PO Q6HR PRN #25 tablet PRN Reason: postoperative pain Adhesive Tape [Paper Tape] 1 each TP AD #1 tape Polyquaternium-6/Gauze Bandage [Bioguard Gauze 4"X4" Sponge] 1 each TP AD #60 bandage
[2017-04-10] MEDS: Fluconazole 200 MG/100 ML 200 MG/100 ML BAG IVPB SCH (10:29)
--- NOTE | 2017-04-10 10:43 | General Surgery Progress Note ---
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 Ultrasound demonstrating significant sludge and gallbladder wall thickening measuring 7 mm, Hida scan concerning for acute cholecystitis, he is s /P cholecystostomy tube placement by IR on 04/06/2017 with notable dark bile returned during procedure. Diflucan day 3/7 (400 mg 04/08 and then 200 mg thereafter) Flagyl Day 4/14 Merrem day 4 Vanc (adm 03/28/17, stopped, then restarted 04/03/17) day 7 Zosyn day 4 (stopped on 04/06/2017) Cefazolin (preop on 03/28/17) Mr Guan again reports improvement in his abdominal discomfort. He states the food is not appetizing and therefore he is not eating much. He is agreeable to consuming Boost or Ensure at home for supplements. He is passing flatus and having bowel movements. His cholecystostomy tube is in place and is noted to have a small amount of bilious drainage (95 ml over the past 24-hours). He denies pain at the insertion site. His WBC continues to be downtrending. Plan: cholecystostomy tube to remain in place for approximately 6 weeks. Interval follow-up in the office with Dr. Bryan in aprox 4 weeks (see d/c plan) Continue IV ATBX while in hospital Recommend dietary consult for lack of appetite and supplementation at d/c Fluid status, anticoagulation, and diet management per primary service We will continue to follow along with you while he is in the hospital; he is ok to d/c from a surgical standpoint as long as he is tolerating p.o. and remains asymptomatic. d/c planning per vascular/primary service (may transition ATBX to p.o. as indicated) (2) Leukocytosis Current Visit: Yes Status: Acute See A/P above Qualifiers: Leukocytosis type: lymphocytosis Qualified Code(s): D72.820 - Lymphocytosis (symptomatic) Subjective Patient reports: no new complaints, feels better, pain is less, tolerating liquids well (states little appetite.), afebrile Objective Vital Signs - Last 8 Hours Temp Pulse Resp BP Pulse Ox 04/10/17 08:33 90 04/10/17 08:11 98.6 F 93 20 137/79 94 04/10/17 04:57 17 90 04/10/17 04:34 85 20 90 04/10/17 04:14 98.7 F 81 20 151/68 90 Intake and Output 04/09/17 04/10/17 04/10/17 23:59 07:59 15:59 Intake Total 850 / 850 190 / 190 500 / 500 Output Total 500 / 500 0 / 0 375 / 375 Balance 350 / 350 190 / 190 125 / 125 Intake: IV Fluids 610 / 610 260 / 260 Merrem 1,000 MG In Water for inj. (sterile) 10 ML @ 200 mls/ hr IVP Q8HR [facility] Rx#:[id number] Diflucan Premix 200 MG/100 ML 100 / 100 200 mg In 100 ml @ 100 mls/hr IVPB DAILY [facility] Rx#:[id number] Vancocin 1,000 MG In Dextrose 5 500 / 500 250 / 250 % 250 ML @ 167 mls/hr IVPB Q12H [facility] Rx#:[id number] Oral 240 / 240 180 / 180 240 / 240 Output: Urine 500 / 500 0 / 0 375 / 375 Other: Meal Dinner Breakfast Percent of Meal Consumed 0% 0% Weight 103.8 kg Patient Weight 04/10/17 23:59 Weight 103.8 kg - General physical appearance well nourished, no distress, no pain - ENT atraumatic, normocephalic - Neck Neck exam: trachea midline, no venous distension - Respiratory normal expansion, normal respiratory effort, clear to auscultation - Cardiovascular Cardiovascular exam: Present: RRR - Abdomen Abdomen: Present: bowel sounds present, soft, tender, wound (Right drain noted, WNL) Abdominal Tenderness: RUQ Hernia: none - Incision Incision: Present: clean and dry, intact - Integumentary no abnormal pigmentation - Neurologic normal coordination, normal sensation - Musculoskeletal normal gait, normal posture - Psychiatric oriented to time, oriented to person, oriented to place, speech is normal, memory intact - Labs 04/10/17 05:52 04/10/17 05:52 Diabetes panel 04/10/17 Range/Units 05:52 Sodium 133 L (136-145) mEq/L Potassium 3.5 (3.5-5.1) mEq/L Chloride 103 (98-107) mEq/L Carbon Dioxide 23 (23-29) mEq/L BUN 35 H (8-23) mg/dL Creatinine 1.32 H (0.70-1.30) mg/dL Glucose 109 H (70-105) mg/dL Calcium 8.2 L (8.6-10.3) mg/dL AST 29 (13-39) Units/L ALT 21 (7-52) Units/L Alkaline Phosphatase 191 H (34-104) Units/L Albumin 2.3 L (3.5-5.7) g/dL Calcium panel 04/10/17 Range/Units 05:52 Calcium 8.2 L (8.6-10.3) mg/dL Albumin 2.3 L (3.5-5.7) g/dL Pituitary panel 04/10/17 Range/Units 05:52 Sodium 133 L (136-145) mEq/L Potassium 3.5 (3.5-5.1) mEq/L Chloride 103 (98-107) mEq/L Carbon Dioxide 23 (23-29) mEq/L BUN 35 H (8-23) mg/dL Creatinine 1.32 H (0.70-1.30) mg/dL Glucose 109 H (70-105) mg/dL Calcium 8.2 L (8.6-10.3) mg/dL Adrenal panel 04/10/17 Range/Units 05:52 Sodium 133 L (136-145) mEq/L Potassium 3.5 (3.5-5.1) mEq/L Chloride 103 (98-107) mEq/L Carbon Dioxide 23 (23-29) mEq/L BUN 35 H (8-23) mg/dL Creatinine 1.32 H (0.70-1.30) mg/dL Glucose 109 H (70-105) mg/dL Calcium 8.2 L (8.6-10.3) mg/dL Total Bilirubin 1.0 (0.3-1.0) mg/dL AST 29 (13-39) Units/L ALT 21 (7-52) Units/L Alkaline Phosphatase 191 H (34-104) Units/L Albumin 2.3 L (3.5-5.7) g/dL - VTE Documentation of Mechanical Device: Intermittent pneumatic compression device Consult Discharge Plan - Plan Instructions: Oxycodone/Acetaminophen (By mouth) Additional Instructions: Cholecystostomy Tube Care: 1. do not let the drain dangle from your body. Suspend on a lanyard or secured to clothing with the safety pin. 2. Remove dressing and showers/wash with antibacterial soap daily. Pat dry. 3. Place a drain sponge or split 4 x 4 gauze around the drain site. Tape to secure. 4. Do not flush the drain towards the body. If the drain needs flushed, turn the stopcock to off to the patient and you may flushed the tube with 10 mL of normal saline. 5. Record the output from the drain at least once daily. BRING this drainage recording to your follow-up appointment. Referrals: Kal Lugo MD [Primary Care Provider] - 04/15/17 1:15 pm Sy Bryan MD [Partnered Physician] - 05/06/17 3:35 pm Maximino Campoverde MD [Partnered Physician] - 05/07/17 1:00 pm Prescriptions: OxyCODONE/APAP 5/325 [Percocet 5/325 MG] 1 each PO Q6HR PRN #25 tablet PRN Reason: postoperative pain Adhesive Tape [Paper Tape] 1 each TP AD #1 tape Polyquaternium-6/Gauze Bandage [Bioguard Gauze 4"X4" Sponge] 1 each TP AD #60 bandage <Sy Bryan - Last Filed: 04/11/17 07:34> Date of Encounter: 04/10/17 - Assessment and Plan (1) Acute cholecystitis Current Visit: Yes Status: Acute (2) Leukocytosis Current Visit: Yes Status: Acute Qualifiers: Leukocytosis type: lymphocytosis Qualified Code(s): D72.820 - Lymphocytosis (symptomatic) Objective Vital Signs - Last 8 Hours Temp Pulse Resp BP Pulse Ox 04/11/17 07:16 97.6 F 88 17 146/76 95 04/11/17 04:34 20 96 04/11/17 04:25 87 17 129/79 96 04/11/17 00:20 84 19 91 04/10/17 23:53 98.7 F 81 19 132/75 91 Intake and Output 01/24/18 01/24/18 01/25/18 15:59 23:59 07:59 Intake Total 720 / 720 727 / 727 Output Total 1454 / 1454 680 / 680 300 / 300 Balance -734 / -734 47 / 47 -300 / -300 Intake: IV Fluids 360 / 360 Merrem 1,000 MG In Water for inj. (sterile) 10 ML @ 200 mls/ hr IVP Q8HR [facility] Rx#:[id number] Diflucan Premix 200 MG/100 ML 100 / 100 200 mg In 100 ml @ 100 mls/hr IVPB DAILY [facility] Rx#:[id number] Vancocin 1,000 MG In Dextrose 5 250 / 250 % 250 ML @ 167 mls/hr IVPB Q12H [facility] Rx#:[id number] Oral 240 / 240 717 / 717 Free Water 120 / 120 Output: Urine 1425 / 1425 680 / 680 300 / 300 Wound Drainage Right Lower Abdomen Other: Meal Breakfast Dinner Percent of Meal Consumed 0% 10% Weight 101.236 kg Patient Weight 04/11/17 23:59 Weight 101.236 kg - Labs 04/10/17 05:52 04/10/17 05:52 - Attending Attestation I have personally performed a face to face evaluation on this patient. I have reviewed and agree with the care plan. History and Exam by me shows: I reviewed the above and agree with the above plan.
--- NOTE | 2017-04-10 13:53 | Internal Med Progress Note ---
Date of Encounter: 04/10/17 Time of Encounter: 13:52 - Subjective Interval history: Interval history: At postoperative day 12 s/p aortofemoral bypass bypass. A&O x3 and not complaining of significant pain or distress but still no appetite, but denes N/V. 04-10-2017: Feels good and denies significant pain. Tolerating Ensure shakes. Physical Exam: See below Assessment and plan: Acute calculous cholecystitis S/P cholecystostomy tube placement by IR on 04/06/2017. Per surgery the cholecystostomy tube is to remain in place for approximately 6 weeks with follow-up with Dr. Bryan in 4 weeks Antibiotics recommended as follows; Diflucan day 2/7 (400 mg 04/08 and then 200 mg thereafter) Flagyl Day 3/14 Merrem day 3 Vanc (adm 03/28/17, stopped, then restarted 04/03/17) Antibiotics will need transitioned to PO prior to d/c home Poor appetite so Boost/Ensure added by surgery. Atherosclerosis of both lower extremities with rest pain The patient is postoperative day #12 after an aortobifemoral artery bypass. He is healing well and has no acute vascular problems per vascular surgery note. Continue aspirin, Plavix and statin HTN: Continue current meds Dyslipidemia: Continue statin Oral charanjit: Nystatin started Lower Extremity Edema: Lasix increased to 40 mg IVP BID General appearance: Present: cooperative, A&O X 3, pleasant, no acute distress, answers questions appropriately - Head Head exam: Present: atraumatic, normocephalic - Eye Eye exam: Present: EOMI, PERRL, conjuntiva pink, sclera anicteric Pupils: Present: PERRL - Neck Neck exam general surgery: Present: normal inspection, supple, trachea midline. Absent: lymphadenopathy, nuchal rigidity, thyromegaly - Respiratory Respiratory exam: Present: decreased breath sounds. Absent: accessory muscle use, rales, respiratory distress, rhonchi, stridor, wheezes Additional comments: LCTAB but decreased at bases and still requiring HF-O2. - Cardiovascular Cardiovascular exam: Present: RRR, +S1, +S2. Absent: diastolic murmur, gallop, rubs, systolic murmur - GI/Abdominal GI/Abdominal exam: Present: guarding, normal bowel sounds, soft, no peritoneal signs. Absent: distended, rebound, rigid, tenderness - Extremities Exam Extremities exam: Present: warm, radial pulses palpable and symmetrical. Absent : calf tenderness, cyanotic, pedal edema - Expanded Lower Extremities Exam Ankle exam: Present: swelling - Neurological Exam Neurological exam: Present: CN II-XII intact, oriented X3, no focal deficits. Absent: pronater drift, facial droop, speech deficit - Skin Skin exam: Present: dry, intact - Constitutional Vitals: Temp Pulse Resp BP Pulse Ox 98.7 F 75 20 122/73 92 04/10/17 11:50 04/10/17 11:50 04/10/17 11:50 04/10/17 11:50 04/10/17 11:50 General appearance: Present: cooperative, A&O X 3, pleasant, no acute distress, answers questions appropriately Internal Medicine: Result - Labs CBC & Chem 7: 04/10/17 05:52 04/10/17 05:52 Labs: Short CBC 04/10/17 Range/Units 05:52 WBC 18.2 H (4.3-11.1) K/mcL Hgb 9.5 L (12.9-16.9) g/dL Hct 28.0 L (37.5-50.1) % Plt Count 335 (140-400) K/mcL Neutrophils # 15.4 H (1.6-8.9) K/mcL BMP 04/10/17 05:52 Sodium 133 L Potassium 3.5 Chloride 103 Carbon Dioxide 23 BUN 35 H Creatinine 1.32 H Glucose 109 H Calcium 8.2 L Liver Function 04/10/17 Range/Units 05:52 Total Bilirubin 1.0 (0.3-1.0) mg/dL Direct Bilirubin 0.4 H (0.0-0.2) mg/dL AST 29 (13-39) Units/L ALT 21 (7-52) Units/L Alkaline Phosphatase 191 H (34-104) Units/L Albumin 2.3 L (3.5-5.7) g/dL - ABG Interpretation ABG results: ABG ABG pH 7.34 pH Units (7.32-7.45) 03/30/17 03:48 ABG pCO2 38 mmHg (35-45) 03/30/17 03:48 ABG pO2 63 mmHg (85-104) L 03/30/17 03:48 ABG O2 Saturation 90 % (95-98) L 03/30/17 03:48 PT/INR, D-dimer PT 13.3 Seconds (9.4-12.1) H 04/06/17 03:22 - VTE Documentation of Mechanical Device: Intermittent pneumatic compression device Consult Discharge Plan - Plan Instructions: Oxycodone/Acetaminophen (By mouth) Additional Instructions: Cholecystostomy Tube Care: 1. do not let the drain dangle from your body. Suspend on a lanyard or secured to clothing with the safety pin. 2. Remove dressing and showers/wash with antibacterial soap daily. Pat dry. 3. Place a drain sponge or split 4 x 4 gauze around the drain site. Tape to secure. 4. Do not flush the drain towards the body. If the drain needs flushed, turn the stopcock to off to the patient and you may flushed the tube with 10 mL of normal saline. 5. Record the output from the drain at least once daily. BRING this drainage recording to your follow-up appointment. Referrals: Kal Lugo MD [Primary Care Provider] - 04/15/17 1:15 pm Sy Bryan MD [Partnered Physician] - 05/06/17 3:35 pm Maximino Campoverde MD [Partnered Physician] - 05/07/17 1:00 pm Prescriptions: OxyCODONE/APAP 5/325 [Percocet 5/325 MG] 1 each PO Q6HR PRN #25 tablet PRN Reason: postoperative pain Adhesive Tape [Paper Tape] 1 each TP AD #1 tape Polyquaternium-6/Gauze Bandage [Bioguard Gauze 4"X4" Sponge] 1 each TP AD #60 bandage
[2017-04-10] MEDS: Furosemide 40 MG/4 ML VIAL IVP SCH (16:52)
[2017-04-10] MEDS: Aspirin 81 MG TAB.CHEW PO SCH (16:59)
[2017-04-10] MEDS: Nystatin SUSP 5 ML UD.LIQ PO SCH ×2 (16:59→21:18)
[2017-04-11] MEDS: Meropenem 1,000 MG in Water for inj. (sterile) 20 ML 10 ML IVP SCH ×3 (00:12→17:15)
[2017-04-11] MEDS: Vancomycin 1,500 MG in D5% in Water 250 ML IVPB SCH (00:12)
[2017-04-11] MEDS: Ipratropium/Albuterol Neb 3 ML IH SCH ×4 (04:34→22:33)
[2017-04-11] MEDS: Furosemide 40 MG/4 ML VIAL IVP SCH ×2 (07:54→17:15)
[2017-04-11] MEDS: Nystatin SUSP 5 ML UD.LIQ PO SCH ×4 (07:55→21:51)
[2017-04-11] MEDS: Metoprolol 100 MG TABLET PO SCH ×2 (07:55→21:51)
[2017-04-11] MEDS: Fluconazole 200 MG/100 ML 200 MG/100 ML BAG IVPB SCH (07:55)
[2017-04-11] MEDS: amLODIPine 5 MG TABLET PO SCH (07:55)
[2017-04-11] MEDS: Gabapentin 300 MG CAPSULE PO SCH (07:55)
[2017-04-11] MEDS: Nicotine 21 MG PATCH.TD24 TD SCH (07:56)
--- NOTE | 2017-04-11 15:07 | Vascular/[facility] Progress Note ---
Date of Encounter: 04/11/17 Time of Encounter: 14:30 - Assessment and plan (1) Atherosclerosis of both lower extremities with rest pain Current Visit: Yes Status: Chronic The patient is postoperative day #13 after an aortobifemoral artery bypass. He is healing well and tolerating his diet. Continue with nutritional supplements. Qualifiers: Peripheral atherosclerosis artery type: [place] artery Qualified Code(s): I70.223 - Atherosclerosis of [place] arteries of extremities with rest pain, bilateral legs (2) Essential hypertension Current Visit: Yes Status: Chronic (3) Mixed hyperlipidemia Current Visit: Yes Status: Chronic (4) CAD in [place] artery Current Visit: Yes Status: Chronic (5) Acute blood loss anemia Current Visit: Yes Status: Acute He remains hemodynamically stable. (6) CKD (chronic kidney disease), stage III Current Visit: Yes Status: Chronic Creatinine remains stable. (7) Tobacco abuse Current Visit: Yes Status: Chronic Will start nicotine patch. Smoking cessation discussed. (8) Moderate protein malnutrition Current Visit: Yes Status: Chronic Continue with nutritional shakes. (9) Acute cholecystitis Current Visit: Yes Status: Acute Cholecystostomy tube continues to drain bilious fluid. Patient is afebrile with WBC trending downward. Hospitalist to convert to oral antibiotics when appropriate. Likely DC 1-2 days if continues to do well. Will need to follow- up with general surgery for interval chorlecystectomy. - Subjective Interval history: He is alert, toerating a diet and denies pain, fevers or chills. He denies chest pain or shortness of breath. - Physical Examination General: Present: Conversant, No Apparent Distress Cardiac: Present: Reg Rate and Rhythm Lungs: Present: Normal Breath Sounds Neuro: Present: Alert and responsive, No focal deficits noted Vascular: Present: Normal capillary refill, Edema (bilaterally), Surgical incisions (healing well) Abdomen: Present: Soft Skin: Present: No rashes noted on visualized skin - VTE Documentation of Mechanical Device: Intermittent pneumatic compression device Results 04/10/17 05:52 04/10/17 05:52 Consult Discharge Plan - Plan Instructions: Oxycodone/Acetaminophen (By mouth) Additional Instructions: Cholecystostomy Tube Care: 1. do not let the drain dangle from your body. Suspend on a lanyard or secured to clothing with the safety pin. 2. Remove dressing and showers/wash with antibacterial soap daily. Pat dry. 3. Place a drain sponge or split 4 x 4 gauze around the drain site. Tape to secure. 4. Do not flush the drain towards the body. If the drain needs flushed, turn the stopcock to off to the patient and you may flushed the tube with 10 mL of normal saline. 5. Record the output from the drain at least once daily. BRING this drainage recording to your follow-up appointment. Referrals: Kal Lugo MD [Primary Care Provider] - 04/26/17 1:15 pm Sy Bryan MD [Partnered Physician] - 05/06/17 3:35 pm Maximino Campoverde MD [Partnered Physician] - 05/07/17 1:00 pm Prescriptions: OxyCODONE/APAP 5/325 [Percocet 5/325 MG] 1 each PO Q6HR PRN #25 tablet PRN Reason: postoperative pain Adhesive Tape [Paper Tape] 1 each TP AD #1 tape Polyquaternium-6/Gauze Bandage [Bioguard Gauze 4"X4" Sponge] 1 each TP AD #60 bandage
[2017-04-11] MEDS: Aspirin 81 MG TAB.CHEW PO SCH (17:15)
--- NOTE | 2017-04-11 17:36 | Internal Med Progress Note ---
Date of Encounter: 04/11/17 Time of Encounter: 17:34 - Subjective Interval history: Interval history: At postoperative day 12 s/p aortofemoral bypass bypass. A&O x3 and not complaining of significant pain or distress but still no appetite, but denes N/V. 04-10-2017: Feels good and denies significant pain. Tolerating Ensure shakes. Physical Exam: See below Assessment and plan: Acute calculous cholecystitis S/P cholecystostomy tube placement by IR on 04/06/2017. Per surgery the cholecystostomy tube is to remain in place for approximately 6 weeks with follow-up with Dr. Bryan in 4 weeks Antibiotics recommended as follows; Diflucan day 2/7 (400 mg 04/08 and then 200 mg thereafter) Flagyl Day 3/14 Merrem day 3 Vanc (adm 03/28/17, stopped, then restarted 04/03/17) Antibiotics will need transitioned to PO prior to d/c home d/w RPh in am Poor appetite so Boost/Ensure added by surgery. Atherosclerosis of both lower extremities with rest pain The patient is postoperative day #12 after an aortobifemoral artery bypass. He is healing well and has no acute vascular problems per vascular surgery note. Continue aspirin, Plavix and statin HTN: Continue current meds Dyslipidemia: Continue statin Oral charanjit: Nystatin started Lower Extremity Edema: Lasix increased to 40 mg IVP BID General appearance: Present: cooperative, A&O X 3, pleasant, no acute distress, answers questions appropriately - Head Head exam: Present: atraumatic, normocephalic - Eye Eye exam: Present: EOMI, PERRL, conjuntiva pink, sclera anicteric Pupils: Present: PERRL - Neck Neck exam general surgery: Present: normal inspection, supple, trachea midline. Absent: lymphadenopathy, nuchal rigidity, thyromegaly - Respiratory Respiratory exam: Present: decreased breath sounds. Absent: accessory muscle use, rales, respiratory distress, rhonchi, stridor, wheezes Additional comments: LCTAB but decreased at bases and still requiring HF-O2. - Cardiovascular Cardiovascular exam: Present: RRR, +S1, +S2. Absent: diastolic murmur, gallop, rubs, systolic murmur - GI/Abdominal GI/Abdominal exam: Present: guarding, normal bowel sounds, soft, no peritoneal signs. Absent: distended, rebound, rigid, tenderness - Extremities Exam Extremities exam: Present: warm, radial pulses palpable and symmetrical. Absent : calf tenderness, cyanotic, pedal edema - Expanded Lower Extremities Exam Ankle exam: Present: swelling - Neurological Exam Neurological exam: Present: CN II-XII intact, oriented X3, no focal deficits. Absent: pronater drift, facial droop, speech deficit - Skin Skin exam: Present: dry, intact - Constitutional Vitals: Temp Pulse Resp BP Pulse Ox 98.5 F 81 18 141/75 93 04/11/17 15:21 04/11/17 15:21 04/11/17 16:00 04/11/17 15:21 04/11/17 16:00 General appearance: Present: cooperative, A&O X 3, pleasant, no acute distress, answers questions appropriately Internal Medicine: Result - Labs CBC & Chem 7: 04/10/17 05:52 04/10/17 05:52 - ABG Interpretation ABG results: ABG ABG pH 7.34 pH Units (7.32-7.45) 03/30/17 03:48 ABG pCO2 38 mmHg (35-45) 03/30/17 03:48 ABG pO2 63 mmHg (85-104) L 03/30/17 03:48 ABG O2 Saturation 90 % (95-98) L 03/30/17 03:48 PT/INR, D-dimer PT 13.3 Seconds (9.4-12.1) H 04/06/17 03:22 - VTE Documentation of Mechanical Device: Intermittent pneumatic compression device Consult Discharge Plan - Plan Instructions: Oxycodone/Acetaminophen (By mouth) Additional Instructions: Cholecystostomy Tube Care: 1. do not let the drain dangle from your body. Suspend on a lanyard or secured to clothing with the safety pin. 2. Remove dressing and showers/wash with antibacterial soap daily. Pat dry. 3. Place a drain sponge or split 4 x 4 gauze around the drain site. Tape to secure. 4. Do not flush the drain towards the body. If the drain needs flushed, turn the stopcock to off to the patient and you may flushed the tube with 10 mL of normal saline. 5. Record the output from the drain at least once daily. BRING this drainage recording to your follow-up appointment. Referrals: Kal Lugo MD [Primary Care Provider] - 04/26/17 1:15 pm Sy Bryan MD [Partnered Physician] - 05/06/17 3:35 pm Maximino Campoverde MD [Partnered Physician] - 05/07/17 1:00 pm Prescriptions: OxyCODONE/APAP 5/325 [Percocet 5/325 MG] 1 each PO Q6HR PRN #25 tablet PRN Reason: postoperative pain Adhesive Tape [Paper Tape] 1 each TP AD #1 tape Polyquaternium-6/Gauze Bandage [Bioguard Gauze 4"X4" Sponge] 1 each TP AD #60 bandage
[2017-04-12] MEDS: Ondansetron 4 MG/2 ML VIAL IVP PRN (00:21)
[2017-04-12] MEDS: Meropenem 1,000 MG in Water for inj. (sterile) 20 ML 10 ML IVP SCH ×2 (00:21→07:20)
[2017-04-12] MEDS: Vancomycin 1,500 MG in D5% in Water 250 ML IVPB SCH (00:21)
[2017-04-12] MEDS: Ipratropium/Albuterol Neb 3 ML IH SCH ×4 (04:21→22:23)
[2017-04-12] MEDS: Nystatin SUSP 5 ML UD.LIQ PO SCH ×4 (07:20→21:51)
[2017-04-12] MEDS: Fluconazole 200 MG/100 ML 200 MG/100 ML BAG IVPB SCH (07:20)
[2017-04-12] MEDS: Furosemide 40 MG/4 ML VIAL IVP SCH ×2 (07:20→17:11)
[2017-04-12] MEDS: amLODIPine 5 MG TABLET PO SCH (07:21)
[2017-04-12] MEDS: Metoprolol 100 MG TABLET PO SCH ×2 (07:21→21:50)
[2017-04-12] MEDS: Gabapentin 300 MG CAPSULE PO SCH (07:21)
[2017-04-12] MEDS: Nicotine 21 MG PATCH.TD24 TD SCH (07:21)
[2017-04-12 08:20] LABS: BUN/Creatinine Ratio 26 (6-26); Blood Urea Nitrogen 29 mg/dL (8-23); Calcium 8.4 mg/dL (8.6-10.3); Carbon Dioxide 27 mEq/L (23-29); Chloride 103 mEq/L (98-107); Glucose 110 mg/dL (70-105); Osmolality,Calculated 286 (280-300); Potassium 3.6 mEq/L (3.5-5.1); Sodium 135 mEq/L (136-145); eGFR For African Americans > 60 (> 60); eGFR For Non-African Americans > 60 (> 60)
[2017-04-12 08:37] LABS: Basophils % 0.1 %; Eosinophils # 0.3 K/mcL (0.0-0.6); Eosinophils % 2.2 %; Hematocrit 29.1 % (37.5-50.1); Hemoglobin 9.4 g/dL (12.9-16.9); Immature Granulocytes % 1.2 % (0-4); Lymphocytes # 1.1 K/mcL (0.6-4.6); Lymphocytes % 7.9 %; Mean Corpuscular HGB Conc 32.3 g/dL (31.6-35.5); Mean Corpuscular Hemoglobin 29.2 pg (28.0-33.3); Mean Corpuscular Volume 90.4 fL (83.0-100.0); Mean Platelet Volume 9.2 fL (9.4-12.4); Monocytes # 0.8 K/mcL (0.0-1.3); Neutrophils # 11.3 K/mcL (1.6-8.9); Platelet Count 379 K/mcL (140-400); Red Blood Count 3.22 M/mcL (4.19-5.50); Red Cell Distribution Width 15.4 % (11.5-14.5); Segmented Neutrophils % 82.6 %
--- NOTE | 2017-04-12 11:08 | Internal Med Progress Note ---
Date of Encounter: 04/12/17 Time of Encounter: 11:04 - Subjective Interval history: Interval history: At postoperative day 14 s/p aortofemoral bypass bypass. A&O x3 and not complaining of significant pain or distress but still no appetite, but denes N/V. 04-10-2017: Feels good and denies significant pain. Tolerating Ensure shakes. 04-11-2017: A&O x3 in NAD 04-12-2017: A&O x3 in NAD Physical Exam: See below Assessment and plan: Acute calculous cholecystitis S/P cholecystostomy tube placement by IR on 04/06/2017. Per surgery the cholecystostomy tube is to remain in place for approximately 6 weeks with follow-up with Dr. Bryan in 4 weeks Antibiotics will need transitioned to PO prior to d/c home. These changes were d /w RPh today and antimicrobials changed to Augmentin for 4 days and PO Diflucan for 3 more days Boost/Ensure added by surgery to improve appetite. Atherosclerosis of both lower extremities with rest pain The patient is postoperative day #14 after an aortobifemoral artery bypass. He is healing well and has no acute vascular problems per vascular surgery note. Continue aspirin, Plavix and statin HTN: Continue current meds Dyslipidemia: Continue statin Oral charanjit: Nystatin started and showing improvement Lower Extremity Edema: Lasix increased to 40 mg IVP BID Physical Exam: General appearance: Present: cooperative, A&O X 3, pleasant, no acute distress, answers questions appropriately - Head Head exam: Present: atraumatic, normocephalic - Eye Eye exam: Present: EOMI, PERRL, conjuntiva pink, sclera anicteric Pupils: Present: PERRL - Neck Neck exam general surgery: Present: normal inspection, supple, trachea midline. Absent: lymphadenopathy, nuchal rigidity, thyromegaly - Respiratory Respiratory exam: Present: decreased breath sounds. Absent: accessory muscle use, rales, respiratory distress, rhonchi, stridor, wheezes Additional comments: LCTAB but decreased at bases and still requiring HF-O2. - Cardiovascular Cardiovascular exam: Present: RRR, +S1, +S2. Absent: diastolic murmur, gallop, rubs, systolic murmur - GI/Abdominal GI/Abdominal exam: Present: guarding, normal bowel sounds, soft, no peritoneal signs. Absent: distended, rebound, rigid, tenderness - Extremities Exam Extremities exam: Present: warm, radial pulses palpable and symmetrical. Absent : calf tenderness, cyanotic, pedal edema - Expanded Lower Extremities Exam Ankle exam: Present: swelling - Neurological Exam Neurological exam: Present: CN II-XII intact, oriented X3, no focal deficits. Absent: pronater drift, facial droop, speech deficit - Skin Skin exam: Present: dry, intact Labs: - Constitutional Vitals: Temp Pulse Resp BP Pulse Ox 98.8 F 83 17 136/67 93 04/12/17 07:07 04/12/17 07:31 04/12/17 10:47 04/12/17 07:07 04/12/17 10:47 General appearance: Present: cooperative, A&O X 3, pleasant, no acute distress, answers questions appropriately Internal Medicine: Result - Labs CBC & Chem 7: 04/12/17 07:32 04/12/17 07:32 Labs: Short CBC 04/12/17 Range/Units 07:32 WBC 13.7 H (4.3-11.1) K/mcL Hgb 9.4 L (12.9-16.9) g/dL Hct 29.1 L (37.5-50.1) % Plt Count 379 (140-400) K/mcL Neutrophils # 11.3 H (1.6-8.9) K/mcL BMP 04/12/17 07:32 Sodium 135 L Potassium 3.6 Chloride 103 Carbon Dioxide 27 BUN 29 H Creatinine 1.10 Glucose 110 H Calcium 8.4 L - ABG Interpretation ABG results: ABG ABG pH 7.34 pH Units (7.32-7.45) 03/30/17 03:48 ABG pCO2 38 mmHg (35-45) 03/30/17 03:48 ABG pO2 63 mmHg (85-104) L 03/30/17 03:48 ABG O2 Saturation 90 % (95-98) L 03/30/17 03:48 PT/INR, D-dimer PT 13.3 Seconds (9.4-12.1) H 04/06/17 03:22 - VTE Documentation of Mechanical Device: Intermittent pneumatic compression device Consult Discharge Plan - Plan Instructions: Oxycodone/Acetaminophen (By mouth) Additional Instructions: Cholecystostomy Tube Care: 1. do not let the drain dangle from your body. Suspend on a lanyard or secured to clothing with the safety pin. 2. Remove dressing and showers/wash with antibacterial soap daily. Pat dry. 3. Place a drain sponge or split 4 x 4 gauze around the drain site. Tape to secure. 4. Do not flush the drain towards the body. If the drain needs flushed, turn the stopcock to off to the patient and you may flushed the tube with 10 mL of normal saline. 5. Record the output from the drain at least once daily. BRING this drainage recording to your follow-up appointment. Referrals: Kal Lugo MD [Primary Care Provider] - 04/26/17 1:15 pm Sy Bryan MD [Partnered Physician] - 05/06/17 3:35 pm Maximino Campoverde MD [Partnered Physician] - 05/07/17 1:00 pm Prescriptions: OxyCODONE/APAP 5/325 [Percocet 5/325 MG] 1 each PO Q6HR PRN #25 tablet PRN Reason: postoperative pain Adhesive Tape [Paper Tape] 1 each TP AD #1 tape Polyquaternium-6/Gauze Bandage [Bioguard Gauze 4"X4" Sponge] 1 each TP AD #60 bandage
[2017-04-12] MEDS ORDERED: Aminoglycoside Consult 1 EACH MC ONE (14:24)
[2017-04-12] MEDS: Aspirin 81 MG TAB.CHEW PO SCH (17:11)
--- NOTE | 2017-04-12 18:00 | Vascular/[facility] Progress Note ---
Date of Encounter: 04/12/17 Time of Encounter: 07:35 - Assessment and plan (1) Atherosclerosis of both lower extremities with rest pain Current Visit: Yes Status: Chronic The patient is postoperative day #15 after an aortobifemoral artery bypass. No acute vascular issues. He is healing well and tolerating his diet. Qualifiers: Peripheral atherosclerosis artery type: [place] artery Qualified Code(s): I70.223 - Atherosclerosis of [place] arteries of extremities with rest pain, bilateral legs (2) Essential hypertension Current Visit: Yes Status: Chronic (3) Mixed hyperlipidemia Current Visit: Yes Status: Chronic (4) CAD in [place] artery Current Visit: Yes Status: Chronic (5) Acute blood loss anemia Current Visit: Yes Status: Acute He is hemodynamically stable. (6) CKD (chronic kidney disease), stage III Current Visit: Yes Status: Chronic Creatinine remains stable. (7) Tobacco abuse Current Visit: Yes Status: Chronic Will start nicotine patch. Smoking cessation discussed. (8) Moderate protein malnutrition Current Visit: Yes Status: Chronic Continue with nutritional shakes. (9) Acute cholecystitis Current Visit: Yes Status: Acute Cholecystostomy tube continues to drain bilious fluid. Patient is afebrile with WBC continues t trend downward. Begin oral antibiotics today. Likely home tomorrow. Will need to follow-up with general surgery for interval chorlecystectomy. - Subjective Interval history: Alert, comfortable and tolerating his diet. He is afebrile. He denies chest pain or shortness of breath. Vital Signs, Last 4 Hours Temp Pulse Resp BP Pulse Ox 04/12/17 16:27 97.7 F 82 17 141/74 89 - Physical Examination General: Present: Conversant, No Apparent Distress Cardiac: Present: Reg Rate and Rhythm Lungs: Present: Normal Breath Sounds Neuro: Present: Alert and responsive, No focal deficits noted Vascular: Present: Normal capillary refill, Pulse, normal (pedal signals present ), Surgical incisions (Healing well). Absent: Cyanosis Abdomen: Present: Soft, Non-tender, Other (Bowel sounds present) Skin: Present: No rashes noted on visualized skin - VTE Documentation of Mechanical Device: Intermittent pneumatic compression device Results 04/12/17 07:32 04/12/17 07:32 Lab Results, Last 24 hours 04/12/17 04/12/17 07:32 07:32 WBC 13.7 H Hgb 9.4 L Hct 29.1 L Plt Count 379 Sodium 135 L Potassium 3.6 Chloride 103 Carbon Dioxide 27 BUN 29 H Creatinine 1.10 Glucose 110 H Calcium 8.4 L Consult Discharge Plan - Plan Instructions: Oxycodone/Acetaminophen (By mouth) Additional Instructions: Cholecystostomy Tube Care: 1. do not let the drain dangle from your body. Suspend on a lanyard or secured to clothing with the safety pin. 2. Remove dressing and showers/wash with antibacterial soap daily. Pat dry. 3. Place a drain sponge or split 4 x 4 gauze around the drain site. Tape to secure. 4. Do not flush the drain towards the body. If the drain needs flushed, turn the stopcock to off to the patient and you may flushed the tube with 10 mL of normal saline. 5. Record the output from the drain at least once daily. BRING this drainage recording to your follow-up appointment. Referrals: Kal Lugo MD [Primary Care Provider] - 04/26/17 1:15 pm Sy Bryan MD [Partnered Physician] - 05/06/17 3:35 pm Maximino Campoverde MD [Partnered Physician] - 05/07/17 1:00 pm Prescriptions: OxyCODONE/APAP 5/325 [Percocet 5/325 MG] 1 each PO Q6HR PRN #25 tablet PRN Reason: postoperative pain Adhesive Tape [Paper Tape] 1 each TP AD #1 tape Polyquaternium-6/Gauze Bandage [Bioguard Gauze 4"X4" Sponge] 1 each TP AD #60 bandage
[2017-04-12] MEDS: *HR* HYDROcodone/Acet 5/325 mg TABLET PO PRN (22:15)
[2017-04-12] MEDS ORDERED: Ipratropium/Albuterol Neb 3 ML ONE (22:21)
[2017-04-13] MEDS: Ipratropium/Albuterol Neb 3 ML IH SCH ×2 (04:13→09:39)
[2017-04-13 07:52] LABS: Basophils # 0.1 K/mcL (0.0-0.2); Basophils % 0.4 %; Eosinophils # 0.3 K/mcL (0.0-0.6); Eosinophils % 2.9 %; Hematocrit 29.3 % (37.5-50.1); Hemoglobin 9.6 g/dL (12.9-16.9); Immature Granulocytes % 1.4 % (0-4); Lymphocytes # 1.1 K/mcL (0.6-4.6); Lymphocytes % 9.8 %; Mean Corpuscular HGB Conc 32.8 g/dL (31.6-35.5); Mean Corpuscular Hemoglobin 29.9 pg (28.0-33.3); Mean Corpuscular Volume 91.3 fL (83.0-100.0); Mean Platelet Volume 9.1 fL (9.4-12.4); Monocytes # 0.6 K/mcL (0.0-1.3); Monocytes % 5.5 %; Neutrophils # 9.3 K/mcL (1.6-8.9); Platelet Count 363 K/mcL (140-400); Red Blood Count 3.21 M/mcL (4.19-5.50); Red Cell Distribution Width 15.1 % (11.5-14.5)
[2017-04-13] MEDS: Furosemide 40 MG/4 ML VIAL IVP SCH (07:57)
[2017-04-13] MEDS: Nystatin SUSP 5 ML UD.LIQ PO SCH (07:57)
[2017-04-13] MEDS: Gabapentin 300 MG CAPSULE PO SCH (07:57)
[2017-04-13] MEDS: Nicotine 21 MG PATCH.TD24 TD SCH (07:57)
[2017-04-13] MEDS: Metoprolol 100 MG TABLET PO SCH (07:58)
[2017-04-13] MEDS: amLODIPine 5 MG TABLET PO SCH (07:58)
[2017-04-13 08:05] LABS: BUN/Creatinine Ratio 24 (6-26); Blood Urea Nitrogen 26 mg/dL (8-23); Calcium 8.5 mg/dL (8.6-10.3); Carbon Dioxide 28 mEq/L (23-29); Chloride 105 mEq/L (98-107); Glucose 111 mg/dL (70-105); Osmolality,Calculated 289 (280-300); Potassium 3.6 mEq/L (3.5-5.1); Sodium 137 mEq/L (136-145); eGFR For African Americans > 60 (> 60); eGFR For Non-African Americans > 60 (> 60)
[2017-04-13] MEDS ORDERED: Fluconazole 100 MG TABLET PO SCH (09:00)
[2017-04-13 11:40] VITALS: BP 134/83
--- NOTE | 2017-04-13 12:35 | Internal Med Progress Note ---
Date of Encounter: 04/13/17 Time of Encounter: 12:31 - Subjective Interval history: Interval history: 04-10-2017: Feels good and denies significant pain. Tolerating Ensure shakes. 04-11-2017: A&O x3 in NAD 04-12-2017: A&O x3 in NAD 04-13-2017: A&O x3 in NAD At postoperative day #15 (aortofemoral bypass). Eating better. Pain controlled Physical Exam: See below Assessment and plan: Acute calculous cholecystitis S/P cholecystostomy tube placement by IR on 04/06/2017. Per surgery the cholecystostomy tube is to remain in place for approximately 6 weeks with follow-up with Dr. Bryan in 4 weeks Antibiotics will need transitioned to PO prior to d/c home. These changes were d /w RPh today and antimicrobials changed to Augmentin for 4 days and PO Diflucan for 3 more days Boost/Ensure added by surgery to improve appetite. Atherosclerosis of both lower extremities with rest pain S/p aortobifemoral artery bypass. He is healing well and has no acute vascular problems per vascular surgery note. Continue aspirin, Plavix and statin HTN: Continue current meds Dyslipidemia: Continue statin Oral charanjit: Nystatin started and showing improvement Lower Extremity Edema: Lasix increased to 40 mg IVP BID Physical Exam: General appearance: Present: cooperative, A&O X 3, pleasant, no acute distress, answers questions appropriately - Head Head exam: Present: atraumatic, normocephalic - Eye Eye exam: Present: EOMI, PERRL, conjuntiva pink, sclera anicteric Pupils: Present: PERRL - Neck Neck exam general surgery: Present: normal inspection, supple, trachea midline. Absent: lymphadenopathy, nuchal rigidity, thyromegaly - Respiratory Respiratory exam: Present: decreased breath sounds. Absent: accessory muscle use, rales, respiratory distress, rhonchi, stridor, wheezes Additional comments: LCTAB but decreased at bases and still requiring HF-O2. - Cardiovascular Cardiovascular exam: Present: RRR, +S1, +S2. Absent: diastolic murmur, gallop, rubs, systolic murmur - GI/Abdominal GI/Abdominal exam: Present: guarding, normal bowel sounds, soft, no peritoneal signs. Absent: distended, rebound, rigid, tenderness - Extremities Exam Extremities exam: Present: warm, radial pulses palpable and symmetrical. Absent : calf tenderness, cyanotic, pedal edema - Expanded Lower Extremities Exam Ankle exam: Present: swelling - Neurological Exam Neurological exam: Present: CN II-XII intact, oriented X3, no focal deficits. Absent: pronater drift, facial droop, speech deficit - Skin Skin exam: Present: dry, intact Labs: - Constitutional Vitals: Temp Pulse Resp BP Pulse Ox 98.1 F 75 16 134/83 94 04/13/17 11:37 04/13/17 11:37 04/13/17 11:37 04/13/17 11:37 04/13/17 12:24 General appearance: Present: cooperative, A&O X 3, pleasant, no acute distress, answers questions appropriately Internal Medicine: Result - Labs CBC & Chem 7: 04/13/17 07:20 04/13/17 07:20 Labs: Short CBC 04/13/17 Range/Units 07:20 WBC 11.7 H (4.3-11.1) K/mcL Hgb 9.6 L (12.9-16.9) g/dL Hct 29.3 L (37.5-50.1) % Plt Count 363 (140-400) K/mcL Neutrophils # 9.3 H (1.6-8.9) K/mcL BMP 04/13/17 07:20 Sodium 137 Potassium 3.6 Chloride 105 Carbon Dioxide 28 BUN 26 H Creatinine 1.07 Glucose 111 H Calcium 8.5 L - ABG Interpretation ABG results: ABG ABG pH 7.34 pH Units (7.32-7.45) 03/30/17 03:48 ABG pCO2 38 mmHg (35-45) 03/30/17 03:48 ABG pO2 63 mmHg (85-104) L 03/30/17 03:48 ABG O2 Saturation 90 % (95-98) L 03/30/17 03:48 PT/INR, D-dimer PT 13.3 Seconds (9.4-12.1) H 04/06/17 03:22 - VTE Documentation of Mechanical Device: Intermittent pneumatic compression device Consult Discharge Plan - Plan Instructions: Oxycodone/Acetaminophen (By mouth) Additional Instructions: Cholecystostomy Tube Care: 1. do not let the drain dangle from your body. Suspend on a lanyard or secured to clothing with the safety pin. 2. Remove dressing and showers/wash with antibacterial soap daily. Pat dry. 3. Place a drain sponge or split 4 x 4 gauze around the drain site. Tape to secure. 4. Do not flush the drain towards the body. If the drain needs flushed, turn the stopcock to off to the patient and you may flushed the tube with 10 mL of normal saline. 5. Record the output from the drain at least once daily. BRING this drainage recording to your follow-up appointment. Referrals: Kal Lugo MD [Primary Care Provider] - 04/26/17 1:15 pm Sy Bryan MD [Partnered Physician] - 05/06/17 3:35 pm Maximino Campoverde MD [Partnered Physician] - 05/07/17 1:00 pm Prescriptions: OxyCODONE/APAP 5/325 [Percocet 5/325 MG] 1 each PO Q6HR PRN #25 tablet PRN Reason: postoperative pain Adhesive Tape [Paper Tape] 1 each TP AD #1 tape Polyquaternium-6/Gauze Bandage [Bioguard Gauze 4"X4" Sponge] 1 each TP AD #60 bandage
--- NOTE | 2017-04-19 11:14 | Vascular/[facility] Progress Note ---
Date of Encounter: 04/06/17 Time of Encounter: 12:00 (late entry) - Assessment and plan (1) Atherosclerosis of both lower extremities with rest pain Status: Chronic The patient is postoperative day #10 after an aortobifemoral artery bypass. No acute vascular issues. Qualifiers: Peripheral atherosclerosis artery type: [place] artery Qualified Code(s): I70.223 - Atherosclerosis of [place] arteries of extremities with rest pain, bilateral legs (2) Essential hypertension Status: Chronic (3) Mixed hyperlipidemia Status: Chronic (4) CAD in [place] artery Status: Chronic (5) Acute blood loss anemia Status: Acute (6) CKD (chronic kidney disease), stage III Status: Chronic (7) Tobacco abuse Status: Chronic (8) Moderate protein malnutrition Status: Chronic (9) Acute cholecystitis Status: Acute He is scheduled for cholecystostomy tube placement. Antibiotic spectrum adjusted by hospitalist due to diagnosis. - Subjective Interval history: Alert, comforable at this time. No nausea. He denies chest pain or shortness of breath. - Physical Examination General: Present: Conversant Cardiac: Present: Reg Rate and Rhythm Lungs: Present: Normal Breath Sounds Neuro: Present: Alert and responsive Vascular: Present: Normal capillary refill Abdomen: Present: Soft, Other (right upper quadrant tenderness) - VTE Documentation of Mechanical Device: Intermittent pneumatic compression device Results 04/13/17 07:20 04/13/17 07:20 Consult Discharge Plan - Plan Instructions: Oxycodone/Acetaminophen (By mouth), Aortofemoral Bypass (DC) Additional Instructions: Cholecystostomy Tube Care: 1. do not let the drain dangle from your body. Suspend on a lanyard or secured to clothing with the safety pin. 2. Remove dressing and showers/wash with antibacterial soap daily. Pat dry. 3. Place a drain sponge or split 4 x 4 gauze around the drain site. Tape to secure. 4. Do not flush the drain towards the body. If the drain needs flushed, turn the stopcock to off to the patient and you may flushed the tube with 10 mL of normal saline. 5. Record the output from the drain at least once daily. BRING this drainage recording to your follow-up appointment. NO LIFTING GREATER THAN 10 POUNDS UNTIL 04/29/17. NO LIFTING GREATER THAN 20 POUNDS UNTIL 05/27/17. CALL DR. HUTCHINS AT [phone] WITH QUESTIONS OR CONCERNS. Referrals: Kal Lugo MD [Primary Care Provider] - 04/26/17 1:15 pm Sy Bryan MD [Partnered Physician] - 05/06/17 3:35 pm Maximino Hutchins MD [Partnered Physician] - 05/07/17 1:00 pm Prescriptions: OxyCODONE/APAP 5/325 [Percocet 5/325 MG] 1 each PO Q6HR PRN #25 tablet PRN Reason: postoperative pain Adhesive Tape [Paper Tape] 1 each TP AD #1 tape Amoxicillin/Clavulanate [Augmentin] 875 mg PO BID #10 tablet Fluconazole [Diflucan] 200 mg PO DAILY #5 tablet Polyquaternium-6/Gauze Bandage [Bioguard Gauze 4"X4" Sponge] 1 each TP AD #60 bandage
== END 2017-04-13 14:25 | disposition home or self-care (01) | DRG 270 ==
LOC: SAMDAY 05:57 → SUATTDRO 17:12 → 2NNU 17:12
PROVIDERS: ADMIT Surgery; ATTEND Internal Medicine
PROC: IRDRAIN (2017-04-06 09:00)

== ENCOUNTER 2017-07-31 07:56 | Inpatient (IN) ==
[~2017-07-31 07:56] MED LIST: Vancomycin 1,000 MG, Sodium Chloride IRRigation 1,000 ML IR ONE
[2017-07-31] MEDS ORDERED: CeFAZolin Syr 2,000MG/20 ML 2,000 MG/20 ML SYRINGE IVPB ONE (08:18)
[2017-07-31] MEDS ORDERED: Ringers Solution, Lactated 1,000 ML IVC SCH ×2 (08:30→16:00)
--- NOTE | 2017-07-31 08:36 | History & Physical Report ---
Date of Encounter: 07/31/17 Time of Encounter: 08:30 24 Hour HP Update - Instructions Instructions: If the History and Physical is less than 30 days old and was completed prior to A.M. admission and or procedure and has NOT been updated on calendar day of procedure please complete this update prior to performing procedure. - Update Patient reports changes in Medical Condition: No Changes in examination, assessment, or condition: No Changes in Medication: No Preop tests/diagnostics Reviewed: Yes Surgery Remains Indicated: Yes Consent for Planned Operative Procedure(s) Verified: Yes - Pre-Operative Checklist Preoperative Checklist Indicated: Yes Prophylactic Antibiotic Ordered: Yes (vancomycin due to MRSA risk) Home Medications Include Beta Kassi: Yes Beta Kassi Taken Today (Day of Surgery): Yes Beta Kassi Taken Yesterday (Day Prior to Surgery): Yes Is VTE Prophylaxis Indicated?: Yes
--- NOTE | 2017-07-31 08:44 | Anesthesia Evaluation PreOp ---
Date of Encounter: 07/31/17 Time of Encounter: 08:42 - Past History Planned Operation: right graft thrombectomy Cardiac History: CHF (chronic systolic), HTN, Hyperlipidemia, Other (PAD) Pulmonary History: Smoker, Pack/yr (40+) PARTS COUNTERPERSON History: TIA (questionable) Other Medical History: Denies Any Significant HX Anesthesia History: No Prior Anesthetic Complications, Past Anesthesia (aorta- bifem 1-18) Alcohol Use: rarely Drug use: none Medications and Allergies Aspirin 81 mg PO QPM 11/11/14 [History] Atorvastatin [Lipitor] 80 mg PO QPM 11/11/14 [History] Cilostazol [Pletal] 100 mg PO BID 11/11/14 [History] Metoprolol [Lopressor] 50 mg PO BID 11/11/14 [History] Nitroglycerin 0.4 mg SL Q5MIN 11/11/14 [History] Sertraline [Zoloft] 50 mg PO QPM 11/11/14 [History] amLODIPine [Norvasc] 10 mg PO DAILY 11/11/14 [History] Clopidogrel [Plavix] 75 mg PO DAILY 06/28/15 [History] Lisinopril [Zestril] 20 mg PO DAILY 06/28/15 [History] Gabapentin [Neurontin] 300 mg PO TID 03/28/17 [History] 3 Allergy/AdvReac Type Severity Reaction Status Date / Time No Known Allergies Allergy Verified 03/28/17 06:48 - Meds/Allergy Pre-op Review Medications Reviewed: Yes Allergies Reviewed: Yes Beta Blockers on Current Med List: Yes If Beta Blockers taken, Date/Time (Last Dose taken): 5-15 @ 2200hrs Anesthesia Results - Labs Laboratory Tests 07/23/17 07/23/17 10:29 10:29 Hgb 14.4 Hct 44.6 Sodium 135 L Potassium 4.4 BUN 14 Creatinine 1.30 - Imaging Additional studies: echo: Impressions: LVEF 60-65%. Moderate left ventricular diastolic dysfunction. Normal right ventricular structure and function. Mildly sclerotic aortic valve leaflets. Mild mitral regurgitation. Mild tricuspid regurgitation. Mild pulmonary hypertension by TR gradient. IVC is not well visualized. Anesthesia Exam Selected Entries 07/31/17 08:12 Temperature 97.5 F L Pulse Rate 77 Respiratory Rate 18 Blood Pressure 131/78 O2 Sat by Pulse Oximetry 98 Weight: 98kg NPO (# of Hours): 8 - HEENT Pupil (Motor): EOMI Mallampati: II Teeth: Edentulous Denture Type: Upper: Complete Oral Opening: Greater than 3 - PARTS COUNTERPERSON LOC: Oriented PARTS COUNTERPERSON Motor: Normal RUE, Normal LUE, Normal RLE, Normal LLE, Normal Face PARTS COUNTERPERSON Sensory: Normal: RUE, LUE, RLE, LLE, Face - Cardiac Rhythm: Regular Murmur: None - Pulmonary Breath Sounds: bilateral Clear Respiratory Effort: Symmetrical Anesthesia Assess/Plan ASA Score: 3 Modified [place] Scale for Level of Consciousness: Cooperative, oriented, and tranquil Anesthetic Plan: General Monitoring Plan: Standard Monitors Recovery Plan: PACU (agrees to GA)
[2017-07-31] MEDS ORDERED: *HR* Rocuronium Bromide 50 MG/5 ML VIAL ONE (12:54)
[2017-07-31] MEDS ORDERED: Lidocaine -MPF 2% 2 ML VIAL ONE ×2 (12:54→13:14)
[2017-07-31] MEDS ORDERED: Dexamethasone 4 MG/ML VIAL ONE (12:54)
[2017-07-31] MEDS ORDERED: *HR* Propofol 200 MG/20 ML VIAL IVP ONE (12:55)
[2017-07-31] MEDS ORDERED: *HR* Midazolam HCl 2 MG/2 ML VIAL ONE (12:59)
[2017-07-31] MEDS ORDERED: *HR* FentaNYL (PF) 100 MCG/2 ML VIAL ONE ×3 (12:59→15:46)
[2017-07-31] MEDS ORDERED: Heparin 1,000 UNITS/500 mL 500 ML ONE (12:59)
[2017-07-31] MEDS ORDERED: Vancomycin 1,000 MG VIAL ONE (13:00)
[2017-07-31] MEDS ORDERED: Heparin 1,000 UNITS/500 mL 1,500 ML ONE (13:00)
[2017-07-31] MEDS ORDERED: Ondansetron 4 MG/2 ML VIAL ONE (13:42)
[2017-07-31] MEDS ORDERED: ceFAZolin 1,000 MG in Water for inj. (sterile) 20 ML 10 ML IVP ONE (14:27)
--- NOTE | 2017-07-31 15:56 | Anesthesia Procedures ---
Date of Encounter: 07/31/17 Time of Encounter: 13:28 Procedures: Anesthesia - Arterial Line Consent obtained: verbal consent Time out performed: Yes Sedation: Versed (mg): 2 Local Anesthetic: Lidocaine 1% Amount of Anesthetic used (mls): 0.3 Size (Gauge): 20 Length (inches): 1 3/4 Technique Used: sterile prep, direct puncture technique Post-Procedure: line taped into place Patient tolerated procedure: well, no complications Complications: none Site: Radial R Vitals: See anesthesia record
[2017-07-31] MEDS ORDERED: *HR* Labetalol 100 MG/20 ML MDV IVP PRN (15:58)
[2017-07-31] MEDS ORDERED: *HR* OxyCODONE Immed Rel 5 MG TABLET PO PRN ×2 (15:58→18:12)
[2017-07-31] MEDS ORDERED: *HR* Promethazine 25 MG/ML VIAL IVP PRN ×2 (15:58→18:12)
[2017-07-31] MEDS ORDERED: Acetaminophen IV 1,000 MG/100 ML INFUS..BTL IVPB ONE (15:58)
[2017-07-31] MEDS ORDERED: Ondansetron 4 MG/2 ML VIAL IVP ONE (15:58)
[2017-07-31] MEDS ORDERED: Neostigmine Methylsulfate 3 MG/3 ML SYRINGE ONE (16:06)
--- NOTE | 2017-07-31 16:21 | Operative Note ---
Date of procedure: 07/31/17 Pre-op diagnosis: Peripheral vascular disease with disabling claudication Post-op diagnosis: same Procedure: 1. Right limb of aortobifemoral bypass graft thrombectomy with revision. 2. Right deep femoral endarterectomy. Complications: None Surgeon: Maximino Campoverde Was there an surveyor instrument assistant present: No Estimated blood loss (cc): 100 Specimen: Right lower extremity thrombus and plaque Condition: stable Disposition: PACU Procedure in Detail: Indications: The patient is a 66-year-old male with multiple medical comorbidities including hypertension, hyperlipidemia, coronary artery disease, chronic kidney disease, chronic anemia and tobacco abuse. The patient history of severe peripheral vascular disease. He is previously undergone aortobifemoral bypass. His found have occlusion of the right femoral artery and thrombosis of the right limb of his graft. Revascularization was recommended. Operative procedure: The patient was identified in the paravertebral area. The risks, benefits and alternatives were discussed and UNDER answered. The patient was then taken to the operating room and taken placed in supine position on the operating table. After the induction of general endotracheal anesthesia he was cleaned and draped in normal sterile fashion. His previous right groin scar was opened sharply. Hemostasis was obtained via electrocautery. Through a process of blunt, sharp and electrocautery dissection , the right graft limb, right common femoral artery, right deep femoral artery and right superficial femoral artery were dissected circumferentially and surrounded with vessel loops. The patient received 5000 units of intravenous heparin. After waiting adequate time for the heparin to circulate the vessels and graft were occluded. A longitudinal graftotomy was made into the distal graft limb. Significant thrombus was encountered. Bonifacio was removed under direct vision. A 5-Ser[place] Sophy embolectomy catheter was then selected. It was advanced into the aorta. The balloon was inflated and was withdrawn. Significant thrombus was removed. Multiple additional passes of the catheter resulted in no additional thrombus. Strong pulsatile antegrade flow was noted. The patient had a previous right femoral to popliteal artery bypass with vein. This was noted to be occluded. The graftotomy was extended into the [place] deep femoral artery. Significant partially occlusive plaque was noted at this level. A deep femoral endarterectomy was then performed using a dental Lena. Endpoints were inspected and no elevated flaps were noted. A Sophy catheter was then used to perform thrombectomy of the deep femoral artery. Vigorous retrograde flow was then noted. The vessel was reoccluded. A Hemashield patch was cut to fit the arterial defect and sutured in place with a 6-0 Prolene suture. Prior to completing the patch each vessel was flushed and then reoccluded. Heparinized saline was infused into the lumen. The patch was completed and flow was restored in the vessels. Polyphasic signals were noted in the deep femoral artery. The wound was irrigated with antibiotic containing saline. Thrombin and Gelfoam used to aid in hemostasis. Meticulous hemostasis was obtained throughout the wound with electrocautery. Platelet rich and platelet poor plasma were infused into the wound the wound was then reapproximated with a layer of 2-0 Vicryl followed by 2 layers of 3-0 Vicryl and a layer of 3-0 Monocryl. A sterile dressing was applied and the patient was extubated and taken to recovery room in stable condition.
[2017-07-31] MEDS: *HR* HYDROmorphone (PF) 1 MG/ML SYRINGE IVP PRN ×2 (16:41→16:51)
--- NOTE | 2017-07-31 17:18 | Anesthesia Evaluation Post Op ---
Date of Encounter: 07/31/17 Time of Encounter: 17:17 - Vital Signs Vital Signs: Last Vital Signs Temp 97.2 F L 07/31/17 16:53 Pulse 64 07/31/17 17:13 Resp 16 07/31/17 17:13 BP 142/77 07/31/17 17:13 Pulse Ox 96 07/31/17 17:13 - Lungs Lungs: Clear Ascult./Percussion - Airway Airway: Non-obstructed - Cardiovascular Regular Rate - Mental Status Mental Status: Alert & Oriented, Answers Appropriately - Pain Pain Scale: 3 - Nausea Vomiting Nausea Vomiting: Not Present - Hydration Hydration: NPO - Discharge PostOp Status: Transfer Patient to floor
[2017-07-31] MEDS ORDERED: Acetaminophen 325 MG TABLET PO PRN (18:12)
[2017-07-31] MEDS ORDERED: *HR* HYDROcodone/Acet 5/325 mg TABLET PO PRN (18:12)
[2017-07-31] MEDS ORDERED: *HR* Labetalol 20 MG/4 ML SYRINGE IVP PRN (18:12)
[2017-07-31] MEDS ORDERED: Aspirin 81 MG TAB.CHEW PO SCH (18:12)
[2017-07-31] MEDS ORDERED: Nitroglycerin 0.4 MG TAB.SUBL SL PRN (18:12)
[2017-07-31] MEDS ORDERED: Naloxone 0.4 MG/ML INJ IVP PRN (18:12)
[2017-07-31] MEDS ORDERED: OXYCODONE Oral CONC 10 MG/0.5 ML ORAL.SYG SL PRN ×2 (18:12)
[2017-07-31] MEDS: *HR* Metoprolol 5 MG/5 ML VIAL IVP SCH (18:44)
[2017-07-31] MEDS: Gabapentin 300 MG CAPSULE PO SCH (20:54)
[2017-07-31] MEDS: CeFAZolin Pre 2,000 MG/100 ML 2,000 MG/100 ML BAG IVPB SCH (20:54)
[2017-08-01] MEDS: *HR* Metoprolol 5 MG/5 ML VIAL IVP SCH ×2 (01:28→06:11)
[2017-08-01 04:51] LABS: Basophils % 0.3 %; Eosinophils % 0.3 %; Hemoglobin 12.2 g/dL (12.9-16.9); Immature Granulocytes % 0.4 % (0-4); Lymphocytes # 1.2 K/mcL (0.6-4.6); Lymphocytes % 10.3 %; Mean Corpuscular HGB Conc 33.9 g/dL (31.6-35.5); Mean Corpuscular Hemoglobin 30.1 pg (28.0-33.3); Mean Corpuscular Volume 88.9 fL (83.0-100.0); Mean Platelet Volume 9.3 fL (9.4-12.4); Monocytes # 0.6 K/mcL (0.0-1.3); Monocytes % 5.1 %; Neutrophils # 9.7 K/mcL (1.6-8.9); Platelet Count 170 K/mcL (140-400); Red Blood Count 4.05 M/mcL (4.19-5.50); Red Cell Distribution Width 15.2 % (11.5-14.5); Segmented Neutrophils % 83.6 %
[2017-08-01 05:10] LABS: BUN/Creatinine Ratio 12 (6-26); Blood Urea Nitrogen 15 mg/dL (8-23); Calcium 9.5 mg/dL (8.6-10.3); Carbon Dioxide 23 mEq/L (23-29); Chloride 108 mEq/L (98-107); Glucose 110 mg/dL (70-105); Osmolality,Calculated 283 (280-300); Potassium 4.8 mEq/L (3.5-5.1); Sodium 136 mEq/L (136-145); eGFR For African Americans > 60 (> 60); eGFR For Non-African Americans 55 (> 60)
[2017-08-01] MEDS ORDERED: *HR* Heparin 5,000 UNIT/ML VIAL SQ SCH ×2 (06:00)
--- NOTE | 2017-08-01 06:06 | Discharge Summary ---
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 He also underwent a right femoral endarterectomy. He he reports that his foot is feeling much better today. He has strong Doppler signals in the right lower extremity. His compartments are soft. His incision appears to be healing. (2) Essential hypertension Priority: Secondary Status: Chronic Comments: The patient was counseled regarding atherosclerotic risk factor reduction. (3) Mixed hyperlipidemia Priority: Secondary Status: Chronic (4) CAD in [place] artery Priority: Secondary Status: Chronic (5) CKD (chronic kidney disease), stage III Priority: Secondary Status: Chronic Comments: Stable GFR. Adequate urine output. (6) Tobacco abuse Priority: Secondary Status: Chronic (7) Chronic disease anemia Priority: Secondary Status: Chronic Comments: The patient has chronic anemia with acute expected postoperative blood loss anemia. He is hemodynamically stable without evidence of ongoing blood loss. - Hospital Course Hospital course: Mr. Guan is a 66 year old male with history of hypertension, hyperlipidemia, chronic kidney disease, chronic anemia and peripheral vascular disease who presented to [facility] on the 2017. He underwent a right graft thrombectomy and right femoral endarterectomy. He tolerated procedure well. He was discharged home in stable condition on postop day #1 without complications. Time spent discussing smoking cessation with patient: 3 to 10 minutes - Time Spent with Patient Total time spent providing and/or coordinating discharge services: - Discharge Medications Prescriptions: OxyCODONE/APAP 5/325 [Percocet 5/325 MG] 1 each PO Q6HR PRN 5 Days #20 tablet PRN Reason: Postoperative pain Home Medications: Aspirin 81 mg PO QPM 11/11/14 [History] Atorvastatin [Lipitor] 80 mg PO QPM 11/11/14 [History] Cilostazol [Pletal] 100 mg PO BID 11/11/14 [History] Metoprolol [Lopressor] 50 mg PO BID 08/27/15 [History] Nitroglycerin 0.4 mg SL Q5MIN 11/11/14 [History] Sertraline [Zoloft] 50 mg PO QPM 11/11/14 [History] amLODIPine [Norvasc] 10 mg PO DAILY 11/11/14 [History] Clopidogrel [Plavix] 75 mg PO DAILY 06/28/15 [History] Lisinopril [Zestril] 20 mg PO DAILY 06/28/15 [History] Gabapentin [Neurontin] 300 mg PO TID 03/28/17 [History] OxyCODONE/APAP 5/325 [Percocet 5/325 MG] 1 each PO Q6HR PRN 5 Days #20 tablet [Rx] Allergies/Adverse Reactions: 3 Allergy/AdvReac Type Severity Reaction Status Date / Time No Known Allergies Allergy Verified 03/28/17 06:48 Date of admission: 07/31/17 18:01 Primary care physician: Kal Lugo MD Procedure(s) Performed: Right femoral thrombectomy, right femoral endarterectomy. Discharging clinician: Maximino Campoverde Anticipated date of discharge: 08/01/17 Exam Vital Signs, Last 4 Hours Temp Pulse Resp BP Pulse Ox 08/01/17 03:29 98.0 F 93 18 133/92 98 General: Present: Conversant, No Apparent Distress HEENT: Present: Atraumatic Cardiac: Present: Reg Rate and Rhythm Lungs: Present: Normal Breath Sounds Neuro: Present: Alert and responsive, No focal deficits noted, Motor nerves grossly intact, Sensory nerves grossly intact Abdomen: Present: Soft, Non-tender Vascular: Present: Normal capillary refill, Pulse, diminished (Pedal signals present bilaterally), Surgical incisions (No hematoma Ethan and dry without erythema or drainage.). Absent: Cyanosis, Edema Skin: Present: No rashes noted on visualized skin - Patient Status Disposition: Home, Self-Care Condition: Good Functional capacity at discharge: independent ambulation Overall status at discharge: patient is back to baseline - Discharge Instructions Follow Up With: Kal Lugo MD [Primary Care Provider] - Maximino Campoverde MD [Partnered Physician] - 09/11/17 1:00 pm - Diet and Activity Activity: increase activity as tolerated Diet: advance to your usual diet - VTE Documentation of Mechanical Device: Intermittent pneumatic compression device
[2017-08-01] MEDS: CeFAZolin Pre 2,000 MG/100 ML 2,000 MG/100 ML BAG IVPB SCH (06:10)
[2017-08-01] MEDS: Gabapentin 300 MG CAPSULE PO SCH (07:29)
[2017-08-01] MEDS ORDERED: Lisinopril 20 MG TABLET PO SCH (09:00)
[2017-08-01] MEDS ORDERED: amLODIPine 5 MG TABLET PO SCH (09:00)
[2017-08-01 11:24] VITALS: BP 102/57
== END 2017-08-01 15:34 | disposition home or self-care (01) | DRG 253 ==
LOC: SAMDAY 07:56 → 2NNU 18:01
PROVIDERS: ADMIT Surgery; ATTEND Surgery

== ENCOUNTER 2020-05-18 10:39 | Inpatient (IN) ==
[2020-05-18] MEDS ORDERED: CeFAZolin Syr 2,000MG/20 ML 2,000 MG/20 ML SYRINGE IVPB ONE (10:57)
[2020-05-18] MEDS ORDERED: Ringers Solution, Lactated 1,000 ML IVC SCH (11:00)
[2020-05-18] MEDS ORDERED: *HR* FentaNYL (PF) 100 MCG/2 ML VIAL ONE ×2 (11:23→15:46)
[2020-05-18] MEDS ORDERED: *HR* Propofol 200 MG/20 ML VIAL IVP ONE (11:23)
[2020-05-18] MEDS ORDERED: *HR* Rocuronium Bromide 50 MG/5 ML VIAL ONE (11:25)
[2020-05-18] MEDS ORDERED: Dexamethasone 4 MG/ML VIAL ONE (11:26)
[2020-05-18] MEDS ORDERED: Ondansetron 4 MG/2 ML VIAL ONE (11:26)
[2020-05-18] MEDS ORDERED: Lidocaine -MPF 2% 2 ML VIAL ONE ×3 (11:26→16:44)
[2020-05-18] MEDS ORDERED: Heparin 1,000 UNITS/500 mL 1,000 ML ONE (11:27)
[2020-05-18] MEDS ORDERED: Protamine Sulfate 50 MG/5 ML VIAL IVP ONE (11:27)
[2020-05-18] MEDS ORDERED: Heparin 1,000 UNITS/500 mL 500 ML ONE (11:35)
[2020-05-18] MEDS ORDERED: Vancomycin 1,250 MG/262.5 ML IV.SOLN IVPB ONE (12:00)
[2020-05-18] MEDS ORDERED: *HR* Midazolam HCl 2 MG/2 ML VIAL ONE (13:14)
[2020-05-18] MEDS ORDERED: *HR* Phenylephrine 10 MG/ML VIAL ONE (15:10)
[2020-05-18] MEDS ORDERED: *HR* Heparin 5,000 UNIT/ML VIAL ONE (15:25)
[2020-05-18] MEDS ORDERED: Ondansetron 4 MG/2 ML VIAL IVP PRN ×2 (16:57→18:18)
[2020-05-18] MEDS ORDERED: Promethazine 6.25 MG in Water for inj. (sterile) 20 ML IVPB PRN (16:57)
[2020-05-18] MEDS ORDERED: *HR* Labetalol 20 MG/4 ML SYRINGE IVP PRN (16:57)
[2020-05-18] MEDS ORDERED: *HR* HYDROcodone/Acet 5/325 mg TABLET PO PRN ×2 (16:57→18:18)
[2020-05-18] MEDS ORDERED: *HR* HYDROmorphone PF 0.5 MG/0.5 ML SYRINGE IVP PRN (16:57)
[2020-05-18] MEDS ORDERED: Nitroglycerin 0.4 MG TAB.SUBL SL PRN (18:18)
[2020-05-18] MEDS ORDERED: Naloxone 0.4 MG/ML INJ IVP PRN (18:18)
[2020-05-18] MEDS ORDERED: *HR* OxyCODONE Immed Rel 5 MG TABLET PO PRN (18:18)
[2020-05-18] MEDS ORDERED: Acetaminophen 325 MG TABLET PO PRN (18:18)
[2020-05-18] MEDS ORDERED: 0.9 % Sodium Chloride 1,000 ML IVC SCH (18:18)
[2020-05-18] MEDS: Gabapentin 300 MG CAPSULE PO SCH (20:12)
[2020-05-19] MEDS: *HR* Metoprolol 5 MG/5 ML VIAL IVP SCH ×2 (00:22→05:14)
[2020-05-19] MEDS ORDERED: Vancomycin 1,250 MG/262.5 ML IV.SOLN IVPB ONE (02:00)
[2020-05-19 04:08] VITALS: BP 126/77
[2020-05-19] MEDS ORDERED: CeFAZolin 2 GM/120 ML BAG IVPB SCH ×2 (04:30→20:00)
[2020-05-19 05:27] LABS: Basophils % 0.2 %; Eosinophils % 0.2 %; Hematocrit 40.5 % (37.5-50.1); Hemoglobin 13.2 g/dL (12.9-16.9); Immature Granulocytes % 0.5 % (0-4); Lymphocytes # 0.6 K/mcL (0.6-4.6); Lymphocytes % 9.6 %; Mean Corpuscular HGB Conc 32.6 g/dL (31.6-35.5); Mean Corpuscular Hemoglobin 29.9 pg (28.0-33.3); Mean Corpuscular Volume 91.8 fL (83.0-100.0); Mean Platelet Volume 9.4 fL (9.4-12.4); Monocytes # 0.2 K/mcL (0.0-1.3); Monocytes % 2.7 %; Neutrophils # 5.5 K/mcL (1.6-8.9); Platelet Count 170 K/mcL (140-400); Red Blood Count 4.41 M/mcL (4.19-5.50); Red Cell Distribution Width 14.6 % (11.5-14.5); Segmented Neutrophils % 86.8 %; White Blood Count 6.3 K/mcL (4.3-11.1)
[2020-05-19 05:51] LABS: BUN/Creatinine Ratio 13 (6-26); Blood Urea Nitrogen 15 mg/dL (8-23); Calcium 9.7 mg/dL (8.6-10.3); Carbon Dioxide 20 mEq/L (23-29); Chloride 106 mEq/L (98-107); Glucose 138 mg/dL (70-105); Osmolality,Calculated 279 (280-300); Potassium 4.9 mEq/L (3.5-5.1); Sodium 133 mEq/L (136-145); eGFR For African Americans > 60 (> 60); eGFR For Non-African Americans > 60 (> 60)
[2020-05-19] MEDS ORDERED: *HR* Heparin 5,000 UNIT/ML VIAL SQ SCH ×2 (06:00)
[2020-05-19] MEDS: Aspirin Enteric Coated 81 MG Tablet PO SCH (08:55)
[2020-05-19] MEDS: Gabapentin 300 MG CAPSULE PO SCH (08:56)
[2020-05-19] MEDS ORDERED: amLODIPine 5 MG TABLET PO SCH (09:00)
[2020-05-19] MEDS ORDERED: Metoprolol XL (24 HR) Succ 50 MG TAB.ER.24H PO SCH (09:00)
[2020-05-19] MEDS ORDERED: lisinopriL 20 MG TABLET PO SCH (09:00)
== END 2020-05-19 10:27 | disposition home or self-care (01) | DRG 271 ==
LOC: SAMDAY 10:39 → 2NNU 17:59
PROVIDERS: ADMIT Surgery; ATTEND Surgery